=== PATIENT | female | born 1960 | race Caucasian/White ===

== ENCOUNTER 2019-02-01 14:00 | Emergency (ER) | payer MEDICAID ==
[2019-02-01] MEDS: SUMAtriptan 6 MG/0.5 ML SDV SUBCUT ONE (14:26)
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
== END 2019-02-01 15:20 | disposition home or self-care (01) ==
LOC: LL.ED 14:00
DX: G43.909 Migraine, unspecified, not intractable, without status migrainosus (principal); J45.909 Unspecified asthma, uncomplicated; K21.9 Gastro-esophageal reflux disease without esophagitis; E11.9 Type 2 diabetes mellitus without complications; E66.9 Obesity, unspecified; Z68.30 Body mass index [BMI] 30.0-30.9, adult; Z79.899 Other long term (current) drug therapy; Z88.8 Allergy status to other drugs, medicaments and biological substances; Z79.84 Long term (current) use of oral hypoglycemic drugs; Z88.1 Allergy status to other antibiotic agents
CPT/HCPCS: 96372; 99283; J3030

== ENCOUNTER 2019-05-22 19:24 | Emergency (ER) | payer MEDICAID ==
--- NOTE | 2019-05-22 19:59 | EDM.PDOC ---
ED HPI GENERAL MEDICAL PROBLEM - General Chief Complaint: Lower Extremity Injury/Pain Stated Complaint: right knee pain, fall Time Seen by Provider: 05/22/19 19:30 Source of Information: Reports: Patient History Limitations: Reports: No Limitations - History of Present Illness INITIAL COMMENTS - FREE TEXT/NARRATIVE: Patient is a 58-year-old female who was brought in by ambulance secondary to falling on in her house and hitting her right knee she complains of pain on touch and movement x-rays obtained reveal no fracture at this time patient will be sent home on Motrin 200-3 tablets every 6 hours Onset: Today Duration: Minutes:, Constant Location: Reports: Lower Extremity, Right Quality: Reports: Ache, Throbbing Severity: Mild Improves with: Reports: Cold Therapy Worsens with: Reports: None Context: Reports: Exercise Associated Symptoms: Reports: No Other Symptoms 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 Right Knee Pain Score (Numeric/FACES): 8 - Related Data Allergies Allergy/AdvReac Type Severity Reaction Status Date / Time bee venom protein (honey bee) Allergy Anaphylactic Verified 05/22/19 19:30 Shock carbamazepine [From Tegretol] Allergy Hives Verified 05/22/19 19:30 codeine Allergy Confusion Verified 05/22/19 19:30 erythromycin base Allergy Nausea and Verified 05/22/19 19:30 Vomiting Home Meds: Home Meds Albuterol [Proventil HFA] 2 puff INH Q4H PRN 02/01/19 [History] Albuterol/Ipratropium [DuoNeb 3.0-0.5 MG/3 ML] 3 ml INH Q4HR PRN 02/01/19 [ History] Cetirizine HCl [Zyrtec] 10 mg PO DAILY PRN 02/01/19 [History] Cyclobenzaprine [Flexeril] 10 mg PO TID PRN 02/01/19 [History] Gabapentin [Neurontin] 200 mg PO DAILY 02/01/19 [History] Losartan Potassium [Cozaar] 50 mg PO DAILY 02/01/19 [History] Magnesium Glycinate [Mag Glycinate] 100 mg PO BID #60 tablet 02/01/19 [Rx] Nortriptyline HCl [Pamelor] 50 mg PO BEDTIME 02/01/19 [History] Omeprazole 20 mg PO DAILY 02/01/19 [History] SUMAtriptan Succinate [Imitrex] 6 mg SQ ASDIRECTED PRN #1 vial 02/01/19 [Rx] Vitamin D3/Vitamin K2 (Mk4) [K2 Plus D3 Tablet] 1 each PO DAILY #30 tablet 02/01 [Rx] busPIRone [Buspar] 5 mg PO BID PRN 02/01/19 [History] glipiZIDE [Glipizide ER] 5 mg PO DAILY 02/01/19 [History] Past Medical History HEENT History: Reports: Impaired Vision Respiratory History: Reports: Asthma Gastrointestinal History: Reports: GERD Neurological History: Reports: Headaches, Chronic, Migraines, Neuropathy, Peripheral Psychiatric History: Reports: Depression Endocrine/Metabolic History: Reports: Diabetes, Type II, Obesity/BMI 30+ Review of Systems - Review of Systems Review Of Systems: See Below Constitutional: Reports: No Symptoms Eyes: Reports: No Symptoms Ears: Reports: No Symptoms Nose: Reports: No Symptoms Mouth/Throat: Reports: No Symptoms Respiratory: Reports: No Symptoms Cardiovascular: Reports: No Symptoms GI/Abdominal: Reports: No Symptoms Genitourinary: Reports: No Symptoms Musculoskeletal: Reports: Joint Pain (Right knee) Skin: Reports: No Symptoms Neurological: Reports: No Symptoms Psychiatric: Reports: No Symptoms ED EXAM, GENERAL - Physical Exam Exam: See Below Exam Limited By: No Limitations General Appearance: Alert, WD/WN, No Apparent Distress Ears: Normal External Exam, Normal Canal, Hearing Grossly Normal, Normal TMs Ear Exam: Bilateral Ear: Auricle Normal, Canal Normal, TM normal Nose: Normal Inspection, Normal Mucosa, No Blood Throat/Mouth: Normal Inspection, Normal Lips, Normal Teeth, Normal Gums, Normal Oropharynx, Normal Voice, No Airway Compromise Head: Atraumatic, Normocephalic Neck: Normal Inspection, Supple, Non-Tender, Full Range of Motion Respiratory/Chest: No Respiratory Distress, Lungs Clear, Normal Breath Sounds, No Accessory Muscle Use, Chest Non-Tender Cardiovascular: Normal Peripheral Pulses, Regular Rate, Rhythm, No Edema, No Gallop, No JVD, No Murmur, No Rub GI/Abdominal: Normal Bowel Sounds, Soft, Non-Tender, No Organomegaly, No Distention, No Abnormal Bruit, No Mass (Female) Exam: Deferred Rectal (Female) Exam: Deferred Back Exam: Decreased Range of Motion Extremities: Limited Range of Motion Neurological: Alert, Oriented, CN II-XII Intact, Normal Cognition, Normal Gait, Normal Reflexes, No Motor/Sensory Deficits Psychiatric: Normal Affect, Normal Mood Skin Exam: Warm, Dry, Intact, Normal Color, No Rash Lymphatic: No Adenopathy Course - Vital Signs Last Recorded V/S: Last Vital Signs Temp 97.7 F 05/22/19 19:24 Pulse 108 H 05/22/19 19:24 Resp 20 05/22/19 19:24 BP 111/58 L 05/22/19 19:24 Pulse Ox 99 05/22/19 19:24 - Orders/Labs/Meds Orders: Active Orders 24 hr Category Date Time Status Knee 3V Rt [CR] Stat Exams 05/22/19 19:28 Ordered Departure - Departure Time of Disposition: 19:59 Disposition: Home, Self-Care 01 Condition: Fair Clinical Impression: Contusion of right knee Qualifiers: Encounter type: initial encounter Qualified Code(s): S80.01XA - Contusion of right knee, initial encounter - Discharge Information *PRESCRIPTION DRUG MONITORING PROGRAM REVIEWED*: No *COPY OF PRESCRIPTION DRUG MONITORING REPORT IN PATIENT DAMARIS: No Care Plan Goals: Patient will be sent home she is to ice it for the next 2 days and take Motrin 200-300 mg a 202 tablets to 3 tablets every 6 hours for pain - My Orders Last 24 Hours: My Active Orders 05/22/19 19:28 Knee 3V Rt [CR] Stat - Assessment/Plan Last 24 Hours: My Active Orders 05/22/19 19:28 Knee 3V Rt [CR] Stat
== END 2019-05-22 20:10 | disposition home or self-care (01) ==
LOC: LL.ED 19:24
DX: S80.01XA Contusion of right knee, initial encounter (principal); J45.909 Unspecified asthma, uncomplicated; K21.9 Gastro-esophageal reflux disease without esophagitis; F32.9 Major depressive disorder, single episode, unspecified; E11.9 Type 2 diabetes mellitus without complications; Z91.030 Bee allergy status; Z88.5 Allergy status to narcotic agent; Z88.1 Allergy status to other antibiotic agents; Z88.8 Allergy status to other drugs, medicaments and biological substances; Z79.899 Other long term (current) drug therapy; W18.30XA Fall on same level, unspecified, initial encounter; W22.8XXA Striking against or struck by other objects, initial encounter; Y92.009 Unspecified place in unspecified non-institutional (private) residence as the place of occurrence of the external cause
CPT/HCPCS: 73562-RT; 99284-25

== ENCOUNTER 2019-10-29 16:42 | Emergency (ER) | payer MEDICAID ==
[2019-10-29] MEDS ORDERED: diphenhydrAMINE 50 MG/ML SDV IVPUSH ONE (16:49)
[2019-10-29] MEDS ORDERED: Ketorolac 30 MG/ML SDV IVPUSH ONE (16:49)
[2019-10-29] MEDS ORDERED: Sodium Chloride 0.9% 1,000 ML IV ONE (16:50)
[2019-10-29] MEDS ORDERED: Ondansetron 4 MG/2 ML SDV IVPUSH ONE (16:50)
[2019-10-29] MEDS ORDERED: Prochlorperazine 10 MG in Sodium Chloride 0.9% 100 ML IV ONE (16:53)
--- NOTE | 2019-10-29 16:57 | EDM.PDOC ---
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) Other Treatments [employer]: imitrex at 1330 headached Pain Score (Numeric/FACES): 8 - Related Data Allergies Allergy/AdvReac Type Severity Reaction Status Date / Time bee venom protein (honey bee) Allergy Anaphylactic Verified 05/22/19 19:30 Shock carbamazepine [From Tegretol] Allergy Hives Verified 05/22/19 19:30 codeine Allergy Confusion Verified 05/22/19 19:30 erythromycin base Allergy Nausea and Verified 05/22/19 19:30 Vomiting ketorolac [From Toradol] Allergy Hives Verified 10/29/19 16:52 Home Meds: Home Meds Albuterol [Proventil HFA] 2 puff INH Q4H PRN 02/01/19 [History] Albuterol/Ipratropium [DuoNeb 3.0-0.5 MG/3 ML] 3 ml INH Q4HR PRN 02/01/19 [ History] Cetirizine HCl [Zyrtec] 10 mg PO DAILY PRN 02/01/19 [History] Cyclobenzaprine [Flexeril] 10 mg PO TID PRN 02/01/19 [History] Gabapentin [Neurontin] 200 mg PO DAILY 02/01/19 [History] Losartan Potassium [Cozaar] 50 mg PO DAILY 02/01/19 [History] Magnesium Glycinate [Mag Glycinate] 100 mg PO BID #60 tablet 02/01/19 [Rx] Nortriptyline HCl [Pamelor] 50 mg PO BEDTIME 02/01/19 [History] Omeprazole 20 mg PO DAILY 02/01/19 [History] SUMAtriptan Succinate [Imitrex] 6 mg SQ ASDIRECTED PRN #1 vial 02/01/19 [Rx] Vitamin D3/Vitamin K2 (Mk4) [K2 Plus D3 Tablet] 1 each PO DAILY #30 tablet 02/01 [Rx] busPIRone [Buspar] 5 mg PO BID PRN 02/01/19 [History] glipiZIDE [Glipizide ER] 5 mg PO DAILY 02/01/19 [History] Past Medical History HEENT History: Reports: Impaired Vision Respiratory History: Reports: Asthma Gastrointestinal History: Reports: GERD Neurological History: Reports: Headaches, Chronic, Migraines, Neuropathy, Peripheral Psychiatric History: Reports: Depression Endocrine/Metabolic History: Reports: Diabetes, Type II, Obesity/BMI 30+ ED ROS GENERAL - Review of Systems Review Of Systems: See Below Neurological: Reports: Headache - Physical Exam Exam: See Below Exam Limited By: No Limitations General Appearance: Mild Distress Eye Exam: Bilateral Eye: EOMI, PERRL Ears: Normal TMs Nose: Normal Inspection Throat/Mouth: Normal Oropharynx Head Exam: Atraumatic Neck: Supple Neuro Exam (Abbreviated): Alert, Oriented, No Motor/Sensory Deficits Course - Vital Signs Last Recorded V/S: Last Vital Signs Temp 97.1 F 10/29/19 16:44 Pulse 78 10/29/19 16:44 Resp 20 10/29/19 16:44 BP 147/95 H 10/29/19 16:44 Pulse Ox 93 L 10/29/19 16:44 - Orders/Labs/Meds Orders: Active Orders 24 hr Category Date Time Status Prochlorperazine [Compazine] 10 mg Med 10/29/19 16:53 Ordered Sodium Chloride 0.9% [Normal Saline] 100 ml IV ONETIME Meds: Medications Discontinued Medications Generic Name Dose Route Start Last Admin Trade Name Angela PRN Reason Stop Dose Admin Diphenhydramine HCl 50 mg 10/29/19 16:49 Benadryl IVPUSH 10/29/19 16:50 ONETIME ONE Sodium Chloride 1,000 mls @ 1,000 mls/hr 10/29/19 16:50 Normal Saline IV 10/29/19 17:49 .BOLUS ONE Ketorolac Tromethamine 30 mg 10/29/19 16:49 Toradol IVPUSH 10/29/19 16:50 ONETIME ONE Ondansetron HCl 4 mg 10/29/19 16:50 Zofran IVPUSH 10/29/19 16:51 ONETIME ONE - Re-Assessments/Exams Free Text/Narrative Re-Assessment/Exam: 10/29/19 16:55 Pt given Zofran 4 mg, Benadryl 50 mg, and Compazine 10 mg in ER Departure - Departure Time of Disposition: 17:00 Disposition: Home, Self-Care 01 Clinical Impression: Migraine - Discharge Information *PRESCRIPTION DRUG MONITORING PROGRAM REVIEWED*: Not Applicable *COPY OF PRESCRIPTION DRUG MONITORING REPORT IN PATIENT DAMARIS: Not Applicable Instructions: Migraine Headache, [id number], Recurrent Migraine Headache, [id number] Additional Instructions: Follow up in clinic Sepsis Event Note - Evaluation Sepsis Screening Result: No Definite Risk - Focused Exam Vital Signs: Vital Signs Temp Pulse Resp BP Pulse Ox 10/29/19 16:44 97.1 F 78 20 147/95 H 93 L Date Exam was Performed: 10/29/19 Time Exam was Performed: 16:54 - My Orders Last 24 Hours: My Active Orders 10/29/19 16:53 Prochlorperazine [Compazine] 10 mg Sodium Chloride 0.9% [Normal Saline] 100 ml IV ONETIME - Assessment/Plan Last 24 Hours: My Active Orders 10/29/19 16:53 Prochlorperazine [Compazine] 10 mg Sodium Chloride 0.9% [Normal Saline] 100 ml IV ONETIME
== END 2019-10-29 17:45 | disposition home or self-care (01) ==
LOC: LL.ED 16:42
DX: G43.909 Migraine, unspecified, not intractable, without status migrainosus (principal); J45.909 Unspecified asthma, uncomplicated; F32.9 Major depressive disorder, single episode, unspecified; E66.9 Obesity, unspecified; E11.40 Type 2 diabetes mellitus with diabetic neuropathy, unspecified; Z91.030 Bee allergy status; Z88.5 Allergy status to narcotic agent; Z88.8 Allergy status to other drugs, medicaments and biological substances; Z79.899 Other long term (current) drug therapy; Z79.84 Long term (current) use of oral hypoglycemic drugs
CPT/HCPCS: 96365; 96375; 99283; J0780; J1200; J2405; J7050

== ENCOUNTER 2020-04-14 20:54 | Emergency (ER) | payer MEDICAID, OTHER ==
--- NOTE | 2020-04-14 21:00 | EDM.PDOC ---
ED HPI GENERAL MEDICAL PROBLEM - General Chief Complaint: Laceration Stated Complaint: fall Time Seen by Provider: 04/14/20 20:55 Source of Information: Reports: Patient, EMS, Old Records ([facility] EMR. No paper hospital chart available.). Denies: EMS Notes Reviewed (Not available at time of dictation) History Limitations: Reports: No Limitations - History of Present Illness INITIAL COMMENTS - FREE TEXT/NARRATIVE: The patient was brought to the emergency room via ambulance with pharmaceutical service representative accompaniment with patient placed in complete spine immobilization, including spinal board and in the cervical region. The patient was getting out of her car and walking up to her front steps at home at about 2020 hrs. this evening when she stepped in a hole right in front of her front steps falling forwards and hitting her head and face on the front cement steps. Per history from the pharmaceutical service representative she lost about 200 mL of blood on the scene with bleeding controlled prior to arrival to our facility. The patient denies any loss of consciousness, headaches, visual changes, change in mental status, headaches, emesis, back pain, paresthesias, neurological deficits, or other complaints or injuries. She did initially complain of some mild bilateral knee pain secondary to some minor knee abrasions with no history of knee pain at arrival, including joint instabil ity, etc. No recent history of abdominal pain, heartburn, nausea, diarrhea, melena, gross hematochezia, or any food intolerance, including fatty foods, etc.. The patient also denies any recent fever, cough, wheezing, dyspnea, etc.. Patient complains of 5/10 head pain, neck pain, and facial/nose pain secondary to the above injury. Onset: Today, Sudden Onset Date: 04/14/20 Onset Time: 20:20 Duration: Constant Location: Reports: Head, Face, Neck. Denies: Chest, Abdomen, Back, Pelvis, Upper Extremity, Left, Upper Extremity, Right, Lower Extremity, Left, Lower Extremity, Right, Radiates to, Other Quality: Reports: Same as Previous Episode, Throbbing (Everything was fine) Severity: Moderate Improves with: Reports: None Worsens with: Reports: None Context: Reports: Trauma (As above). 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: Reports: Cervical Collar, Dressing(s), Spinal Immobilization Face/Facial Pain Score (Numeric/FACES): 5 - Related Data Allergies Allergy/AdvReac Type Severity Reaction Status Date / Time bee venom protein (honey bee) Allergy Anaphylactic Verified 05/22/19 19:30 Shock carbamazepine [From Tegretol] Allergy Hives Verified 05/22/19 19:30 codeine Allergy Confusion Verified 05/22/19 19:30 erythromycin base Allergy Nausea and Verified 05/22/19 19:30 Vomiting ketorolac [From Toradol] Allergy Hives Verified 10/29/19 16:52 watermelon Allergy Vomiting Verified 04/14/20 22:05 Home Meds: Home Meds Albuterol/Ipratropium [DuoNeb 3.0-0.5 MG/3 ML] 3 ml INH Q4HR PRN 02/01/19 [History] Cetirizine HCl [Zyrtec] 10 mg PO DAILY PRN 02/01/19 [History] Cyclobenzaprine [Flexeril] 10 mg PO TID PRN 02/01/19 [History] Gabapentin [Neurontin] 200 mg PO DAILY 02/01/19 [History] Losartan Potassium [Cozaar] 50 mg PO DAILY 02/01/19 [History] Magnesium Glycinate [Mag Glycinate] 100 mg PO BID #60 tablet 02/01/19 [Rx] Nortriptyline HCl [Pamelor] 50 mg PO BEDTIME 02/01/19 [History] Omeprazole 20 mg PO DAILY 02/01/19 [History] Vitamin D3/Vitamin K2 (Mk4) [K2 Plus D3 Tablet] 1 each PO DAILY #30 tablet 02/01/19 [Rx] busPIRone [Buspar] 5 mg PO ASDIRECTED PRN 02/01/19 [History] glipiZIDE [Glipizide ER] 5 mg PO DAILY 02/01/19 [History] SUMAtriptan succinate [Imitrex] 50 mg PO BID PRN 10/29/19 [History] Past Medical History HEENT History: Reports: Impaired Vision, Other (See Below) Other HEENT History: The patient wears glasses. 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 Full term without complications during pregnancies or deliveries Neurological History: Reports: Headaches, Chronic, Migraines, Neuropathy, Diabetic, Neuropathy, Peripheral, Other (See Below) Other Neuro History: Recurrent falls. Psychiatric History: Reports: Anxiety, Depression Endocrine/Metabolic History: Reports: Diabetes, Type II, Hypomagnesemia, Obesity/BMI 30+ Hematologic History: Reports: Other (See Below) Other Hematologic History: Thrombocytopenia. 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 - Past Imaging History Past Imaging History: Reports: Mammogram (Last mammogram on 06/19/2018.) Social & Family History - Tobacco Use Smoking Status *Q: Never Smoker Tobacco Use Within Last Twelve Months: No Used Tobacco, but Quit: No Smoking Cessation Information Provided To Patient: No Second Hand Smoke Exposure: No Second Hand Smoke Education Provided: No - Caffeine Use Caffeine Use: Reports: Soda - Living Situation & Occupation Living situation: Reports: (1979, 2 children), with Family () ED ROS GENERAL - Review of Systems Review Of Systems: Comprehensive ROS is negative, except as noted in HPI. ED EXAM, SKIN/RASH Exam: See Below Exam Limited By: No Limitations General Appearance: Alert, WD/WN, No Apparent Distress, Anxious (Mild to moderate) Eye Exam: Bilateral Eye: EOMI, Normal Fundi, Normal Inspection (No nystagmus. The patient is wearing glasses), PERRL Ears: Normal External Exam, Normal Canal, Hearing Grossly Normal, Normal TMs Nose: Nasal Tenderness (As below), Nasal Deformity (Mild proximal nasal bridge depression with a 2.5 cm laceration in this area and mild localized tenderness by palpation), Nasal Swelling (Minimal at laceration site), Other (No epistaxis or evidence of septal hematoma). No: Nasal Drainage Throat/Mouth: Normal Inspection, Normal Lips, Normal Teeth, Normal Gums, Normal Oropharynx, Normal Voice, No Airway Compromise Head: Normocephalic, Other (5.5 cm in length laceration over the mid proximal forehead region with superior 8 cm abrasion and mild swelling but no crepitation, deformity, foreign body, or sign of fracture.). No: Facial Swelling, Facial Tenderness, Sinus Tenderness Neck: Normal Inspection, Supple, Non-Tender, Full Range of Motion, Other (After neck immobilizer removed). No: Lymphadenopathy (L), Lymphadenopathy (R), Thyromegaly Respiratory/Chest: No Respiratory Distress, Lungs Clear, Normal Breath Sounds, No Accessory Muscle Use, Chest Non-Tender. No: Pleural Rub, Retractions Cardiovascular: Normal Peripheral Pulses, Regular Rate, Rhythm, No Gallop, No JVD, No Murmur, No Rub. No: No Edema (Dependent edema as below), Gallop/S3, Gallop/S4, Friction Rub Peripheral Pulses: 1+: Dorsalis Pedis (L) (Secondary to lymphedema), Dorsalis Pedis (R) (Secondary to lymphedema), 2+: Radial (L), Radial (R) GI/Abdominal: Normal Bowel Sounds, Soft, Non-Tender, No Organomegaly, No Distention, No Abnormal Bruit, No Mass, Pelvis Stable, Other (Obese). No: Guarding (Female) Exam: Deferred Rectal (Female) Exam: Deferred Back Exam: Normal Inspection, Full Range of Motion. No: CVA Tenderness (L), CVA Tenderness (R), Muscle Spasm Extremities: Normal Range of Motion, Non-Tender (Minimal at abrasion sites of the knees bilaterally), Normal Capillary Refill, Pedal Edema (Stable by history moderate lymphedema of the lower extremities bilaterally), Other (3-4 cm in diameter regular superficial abrasions over her patella regions bilaterally). No: Joint Swelling, Arm Pain Neurological: Alert, Oriented, CN II-XII Intact, Normal Cognition, Normal Gait, Normal Reflexes (Negative Babinski's), No Motor/Sensory Deficits Psychiatric: Anxious (Moderate), Depressed Mood (Mild) Skin: Wound/Incision (As above). No: Diaphoretic Location, Skin: Head, Face, Lower Extremity, Right, Lower Extremity, Left Characteristics: Other (As above) Associated features: Tenderness (As above) Lymphatic: No Adenopathy ED SKIN PROCEDURES - Laceration/Wound Repair Middle Forehead Appearance: Subcutaneous, Clean Distal NVT: Neuro & Vascular Intact, No Tendon Injury Anesthetic Type: Local Local Anesthesia - Lidocaine (Xylocaine): 1% Plain Local Anesthetic Volume: 5cc Skin Prep: Providone-Iodine (Betadine) Saline Irrigation (cc's): 0 Exploration/Debridement/Repair: Wound Explored, In a Bloodless Field, Explored to Base, No Foreign Material Found, Wound Margins Revised, Multiple Flaps Aligned Closed with: Sutures Lac/Wound length In cm: 5.5 Suture Size: 4-0 # of Sutures: 9 Suture Type: Nylon, Interrupted, Simple Drain Placement: No Sterile Dressing Applied: Nurse Tetanus Status Addressed: Yes Complications: No Proximal Dorsal Nose Appearance: Subcutaneous, Clean Distal NVT: Neuro & Vascular Intact, No Tendon Injury Anesthetic Type: Local Local Anesthesia - Lidocaine (Xylocaine): 1% Plain Local Anesthetic Volume: 2cc Skin Prep: Providone-Iodine (Betadine) Saline Irrigation (cc's): 5 Exploration/Debridement/Repair: Wound Explored, In a Bloodless Field, Explored to Base, No Foreign Material Found, Wound Margins Revised, Multiple Flaps Aligned Closed with: Sutures Lac/Wound length In cm: 2.5 Suture Size: 4-0 # of Sutures: 5 Suture Type: Nylon, Interrupted, Simple Drain Placement: No Sterile Dressing Applied: Nurse Tetanus Status Addressed: Yes Complications: No Course - Vital Signs Last Recorded V/S: Last Vital Signs Temp 37.1 C 04/14/20 20:55 Pulse 114 H 04/14/20 22:08 Resp 20 04/14/20 22:08 BP 140/46 L 04/14/20 22:08 Pulse Ox 96 04/14/20 22:08 Vital Signs - 24 hr 04/14/20 04/14/20 04/14/20 20:55 21:30 21:56 Temperature [ 37.1 C Oral] Pulse, 122 H 113 H 114 H Peripheral [ Right Pulse Oximetry] Respiratory 20 20 20 Rate Blood Pressure 145/86 H 127/75 124/54 L [Right Lower Arm] O2 Sat by Pulse 98 97 97 Oximetry 04/14/20 22:08 Temperature [ Oral] Pulse, 114 H Peripheral [ Right Pulse Oximetry] Respiratory 20 Rate Blood Pressure 140/46 L [Right Lower Arm] O2 Sat by Pulse 96 Oximetry - Orders/Labs/Meds Orders: Active Orders 24 hr Category Date Time Status Cervical Spine wo Cont [CT] Stat Exams 04/14/20 21:04 Taken Head wo Cont [CT] Stat Exams 04/14/20 21:01 Taken Max Facial Sinus wo Cont [CT] Stat Exams 04/14/20 21:01 Taken Peripheral IV Insertion Adult [OM.PC] Routine Oth 04/14/20 21:00 Ordered Labs: Laboratory Tests 04/14/20 04/14/20 04/14/20 Range/Units 21:36 21:36 21:36 WBC 7.4 (4.0-10.2) K/uL RBC 3.94 (3.77-5.09) M/uL Hgb 12.8 (11.7-15.5) g/dL Hct 40.3 (34.0-46.0) % MCV 102.3 H (84.0-98.0) fL MCH 32.5 (28.2-33.3) pg MCHC 31.8 (31.7-36.0) g/dL RDW 16.4 H (11.2-14.1) % Plt Count 104 L (150-350) K/uL Neut % (Auto) 65.3 (45.0-80.0) % Lymph % (Auto) 21.1 (10.0-50.0) % Falls % (Auto) 11.7 (2.0-14.0) % Eos % (Auto) 1.4 (0.0-5.0) % Baso % (Auto) 0.5 (0.0-2.0) % Neut # (Auto) 4.81 (1.40-7.00) K/uL Lymph # (Auto) 1.55 (0.50-3.50) K/uL Falls # (Auto) 0.86 (0.00-1.00) K/uL Eos # (Auto) 0.10 (0.00-0.50) K/uL Baso # (Auto) 0.04 (0.00-0.20) K/uL PT 10.5 (9.5-12.0) SEC INR 1.0 APTT 23.6 L (24.5-32.8) SEC Sodium 137 (136-145) mmol/L Potassium 3.4 L (3.5-5.1) mmol/L Chloride 102 (98-107) mmol/L Carbon Dioxide 28.2 (21.0-32.0) mmol/L BUN 10 (7-18) mg/dL Creatinine 0.90 (0.51-1.17) mg/dL Est Cr Clr Drug Dosing 58.12 mL/min Estimated GFR (MDRD) > 60 mL/min Glucose 301 H (74-106) mg/dL Calcium 8.9 (8.5-10.1) mg/dL Total Bilirubin 1.9 H (0.2-1.0) mg/dL Direct Bilirubin (0.0-0.2) mg/dL Indirect Bilirubin mg/dL AST 23 (15-37) U/L ALT 21 (12-78) U/L Alkaline Phosphatase 114 (46-116) IU/L Total Protein 6.6 (6.4-8.2) g/dL Albumin 2.6 L (3.4-5.0) g/dL 04/14/20 Range/Units 21:50 WBC (4.0-10.2) K/uL RBC (3.77-5.09) M/uL Hgb (11.7-15.5) g/dL Hct (34.0-46.0) % MCV (84.0-98.0) fL MCH (28.2-33.3) pg MCHC (31.7-36.0) g/dL RDW (11.2-14.1) % Plt Count (150-350) K/uL Neut % (Auto) (45.0-80.0) % Lymph % (Auto) (10.0-50.0) % Falls % (Auto) (2.0-14.0) % Eos % (Auto) (0.0-5.0) % Baso % (Auto) (0.0-2.0) % Neut # (Auto) (1.40-7.00) K/uL Lymph # (Auto) (0.50-3.50) K/uL Falls # (Auto) (0.00-1.00) K/uL Eos # (Auto) (0.00-0.50) K/uL Baso # (Auto) (0.00-0.20) K/uL PT (9.5-12.0) SEC INR APTT (24.5-32.8) SEC Sodium (136-145) mmol/L Potassium (3.5-5.1) mmol/L Chloride (98-107) mmol/L Carbon Dioxide (21.0-32.0) mmol/L BUN (7-18) mg/dL Creatinine (0.51-1.17) mg/dL Est Cr Clr Drug Dosing mL/min Estimated GFR (MDRD) mL/min Glucose (74-106) mg/dL Calcium (8.5-10.1) mg/dL Total Bilirubin 1.9 H (0.2-1.0) mg/dL Direct Bilirubin 0.5 H (0.0-0.2) mg/dL Indirect Bilirubin 1.4 mg/dL AST (15-37) U/L ALT (12-78) U/L Alkaline Phosphatase (46-116) IU/L Total Protein (6.4-8.2) g/dL Albumin (3.4-5.0) g/dL Meds: Medications Discontinued Medications Generic Name Dose Route Start Last Admin Trade Name Freq PRN Reason Stop Dose Admin Diphtheria/Tetanus/Acell Pertussis 0.5 ml 04/14/20 21:02 04/14/20 21:36 Adacel IM 04/14/20 21:03 0.5 ml .ONCE ONE Administration Lactated Ringer's 1,000 mls @ 999 mls/hr 04/14/20 21:00 04/14/20 21:36 Ringers, Lactated IV 04/14/20 22:00 999 mls/hr .BOLUS ONE Administration Lidocaine HCl 5 ml 04/14/20 21:01 04/14/20 21:39 Xylocaine-Mpf 1% INJECT 04/14/20 21:02 5 ml ONETIME ONE Administration Lidocaine HCl 5 ml 04/14/20 21:02 04/14/20 21:39 Xylocaine-Mpf 1% INJECT 04/14/20 21:03 5 ml ONETIME ONE Administration Neomycin/Polymyxin/Bacitracin 1 each 04/14/20 21:01 04/14/20 21:39 Triple Antibiotic Oint TOP 04/14/20 21:02 1 each ONETIME ONE Administration Sodium Chloride 10 ml 04/14/20 21:01 Saline Flush FLUSH ASDIRECTED PRN Keep Vein Open - Radiology Interpretation Free Text/Narrative:: CT scans of the head, maxillofacial region, and negative for acute injury other than soft tissue injuries as above. Preliminary verbal reports were not received from the radiology department at [facility] despite our previous request. Departure - Departure Time of Disposition: 23:20 Disposition: Home, Self-Care 01 Condition: Good Clinical Impression: Laceration, Abrasion, Multiple contusions, Morbid obesity, Diabetes mellitus type 2 in obese, Mixed anxiety depressive disorder, Thrombocytopenia, Gilbert's disease, Hypokalemia GERD (gastroesophageal reflux disease) Qualifiers: Esophagitis presence: without esophagitis Qualified Code(s): K21.9 - Gastro- esophageal reflux disease without esophagitis Hypertension Qualifiers: Hypertension type: essential hypertension Qualified Code(s): I10 - Essential (primary) hypertension Hyperlipidemia Qualifiers: Hyperlipidemia type: unspecified Qualified Code(s): E78.5 - Hyperlipidemia, unspecified Osteoarthritis Qualifiers: Osteoarthritis location: multiple joints Osteoarthritis type: primary Qualified Code(s): M89.49 - Other hypertrophic osteoarthropathy, multiple sites - Discharge Information *PRESCRIPTION DRUG MONITORING PROGRAM REVIEWED*: Not Applicable *COPY OF PRESCRIPTION DRUG MONITORING REPORT IN PATIENT DAMARIS: Not Applicable (Medicines are done other medicines all the medicines some Adaptic Neosporin can okay itself is not bleedingCan I check off on her medicines) Referrals: Kayla Uribe NP [Primary Care Provider] - Forms: ED Department Discharge Additional Instructions: 1. Followup with your regular provider in as directed for reevaluation suture removal, CBC, and basic metabolic panel. Bring these discharge instructions with you to that visit. 2. Tylenol 650 mg by mouth every 4 hours when necessary as directed. 3. Antibacterial soap wash/soak with subsequent antibacterial dressing such as Neosporin, etc. as directed 2 times per day until the wound or laceration site completely heals. Keep the area clean and dry with activity restrictions as discussed. Never use hydrogen peroxide for wound care. 4. BenGay or equivalent, heating pad, and/or ice packs as directed. 5. Head precautions as directed-see form. 6. Immediately after this visit verify that your cellular telephone's voicemail has been activated and is empty. Also verify that your home telephone's answering machine is operating properly and has space to receive messages. Note that it is sometimes necessary for us to be able to contact you at a later date to discuss your medical care. 7. Please remember that we are ALWAYS here for you and want to answer any questions you may have. Feel free to call the hospital any time and we call you back DEJA. 8. High potassium diet and additional to previous heart healthy ADA diet. Sepsis Event Note (ED) - Focused Exam Vital Signs: Vital Signs Temp Pulse Resp BP Pulse Ox 04/14/20 22:08 114 H 20 140/46 L 96 04/14/20 21:56 114 H 20 124/54 L 97 04/14/20 21:30 113 H 20 127/75 97 04/14/20 20:55 37.1 C 122 H 20 145/86 H 98 - Problem List & Annotations (1) Multiple contusions SNOMED Code(s): 747847835 Code(s): T07.XXXA - UNSPECIFIED MULTIPLE INJURIES, INITIAL ENCOUNTER Status: Acute Priority: High Onset Date: 04/14/20 Annotation/Comment:: Multiple contusions, including mainly in the head, neck and nose regions. Cervical muscle sprain with negative CT scans as above. The spinal board was removed shortly after patient's arrival to this facility with patient kept in neck immobilization and hard cervical collar until results of the above CT scans were obtained. Secondary to estimated 200 mL blood loss at the scene the patient was bolused with 1 L IV lactated Ringer's solution. Physical and neurological exams were stable during emergency room care. Head precautions given. Otherwise symptomatic relief as per discharge instructions. (2) Laceration SNOMED Code(s): 282008485 Code(s): QXC6182 - Status: Chronic Priority: High Onset Date: 04/14/20 Annotation/Comment:: Lacerations of the head and nose with excellent results with laceration repair as above. TDAP was given with patient not knowing when she had her last tetanus booster. Wound care extensively discussed. (3) Abrasion SNOMED Code(s): 426742983 Code(s): T14.8XXA - OTHER INJURY OF UNSPECIFIED BODY REGION, INITIAL ENCOUNTER Status: Acute Priority: High Onset Date: 04/14/20 Annotation/Comment:: Multiple abrasions including the forehead and knees bilaterally. Wound care discussed. (4) Hyperlipidemia SNOMED Code(s): 74644510 Code(s): E78.5 - HYPERLIPIDEMIA, UNSPECIFIED Status: Chronic Priority: Medium Annotation/Comment:: Currently under therapy. Weight loss in moderation advisable. Qualifiers: Hyperlipidemia type: unspecified Qualified Code(s): E78.5 - Hyperlipidemia, unspecified (5) Hypertension SNOMED Code(s): 06327151 Code(s): I10 - ESSENTIAL (PRIMARY) HYPERTENSION Status: Chronic Priority: High Annotation/Comment:: Somewhat elevated in the emergency room. Continue to observe closely by her regular providers. Qualifiers: Hypertension type: essential hypertension Qualified Code(s): I10 - Essential (primary) hypertension (6) Mixed anxiety depressive disorder SNOMED Code(s): 848569112 Code(s): F41.8 - OTHER SPECIFIED ANXIETY DISORDERS Status: Chronic Prio rity: Medium Annotation/Comment:: Moderate control based on today's exam. No medication changes for now. Continue to observe closely by her regular provider. (7) Osteoarthritis SNOMED Code(s): 900963776 Code(s): M19.90 - UNSPECIFIED OSTEOARTHRITIS, UNSPECIFIED SITE Status: Chronic Priority: Medium Annotation/Comment:: Stable by history with otherwise no other injuries or complaints. Qualifiers: Osteoarthritis location: multiple joints Osteoarthritis type: primary Qualified Code(s): M89.49 - Other hypertrophic osteoarthropathy, multiple sites (8) Asthma SNOMED Code(s): 421506460 Code(s): J45.909 - UNSPECIFIED ASTHMA, UNCOMPLICATED Status: Chronic Priority: Medium Annotation/Comment:: Stable by history with no recent history of fever, bronchitic type symptoms, etc. Qualifiers: Asthma severity: mild Asthma persistence: intermittent Asthma complication type: uncomplicated Qualified Code(s): J45.20 - Mild intermittent asthma, uncomplicated (9) Diabetes mellitus type 2 in obese SNOMED Code(s): 16568450 Code(s): E11.69 - TYPE 2 DIABETES MELLITUS WITH OTHER SPECIFIED COMPLICATION; E66.9 - OBESITY, UNSPECIFIED Status: Chronic Priority: Medium Annotation/Comment:: Under somewhat poor control recently by her history. Elevated random glucose level today as above. Continue to observe closely by he r regular provider. (10) GERD (gastroesophageal reflux disease) SNOMED Code(s): 788722140 Code(s): K21.9 - GASTRO-ESOPHAGEAL REFLUX DISEASE WITHOUT ESOPHAGITIS Status: Chronic Priority: Medium Annotation/Comment:: Stable by history Qualifiers: Esophagitis presence: without esophagitis Qualified Code(s): K21.9 - Gastro-esophageal reflux disease without esophagitis (11) Gilbert's disease SNOMED Code(s): 50071407 Code(s): E80.4 - GILBERT SYNDROME Status: Chronic Priority: Medium Onset Date: ~04/14/20 Annotation/Comment:: Benign disease. Observe for now. Stable for medical records. (12) Hypokalemia SNOMED Code(s): 55143940 Code(s): E87.6 - HYPOKALEMIA Status: Acute Priority: Medium Onset Date: 04/14/20 Annotation/Comment:: Lactated Ringer's IV bolus given as above. Observe for now. High potassium diet. Close follow-up by regular provider. (13) Thrombocytopenia SNOMED Code(s): 205645309 Code(s): D69.6 - THROMBOCYTOPENIA, UNSPECIFIED Status: Chronic Priority: Medium Annotation/Comment:: Currently followed by hemeoncology at [facility] with repeat bone marrow needle aspiration biopsy apparently scheduled for next week. - Problem List Review Problem List Initiated/Reviewed/Updated: Yes - My Orders Last 24 Hours: My Active Orders 04/14/20 21:00 Peripheral IV Insertion Adult [OM.PC] Routine 04/14/20 21:01 Head wo Cont [CT] Stat Max Facial Sinus wo Cont [CT] Stat 04/14/20 21:04 Cervical Spine wo Cont [CT] Stat - Assessment/Plan Last 24 Hours: My Active Orders 04/14/20 21:00 Peripheral IV Insertion Adult [OM.PC] Routine 04/14/20 21:01 Head wo Cont [CT] Stat Max Facial Sinus wo Cont [CT] Stat 04/14/20 21:04 Cervical Spine wo Cont [CT] Stat Assessment:: As above Plan: As above. Extensive precautions were given to the patient and , who are in agreement with the treatment plan. See Patient Instructions for further treatment and plan.
[2020-04-14] MEDS ORDERED: Sodium Chloride 0.9% 10 ML Syringe FLUSH PRN (21:01)
[2020-04-14] MEDS: Diphtheria,Pertussis(Acell),Tetanus Vaccine 0.5 ML SDV IM ONE (21:36)
[2020-04-14] MEDS: Lactated Ringers 1,000 ML IV ONE (21:36)
[2020-04-14] MEDS: Bacitracin/Neomycin/Polymyxin B Oint 0.9 GM U/D Packet TOP ONE (21:39)
[2020-04-14 22:08] LABS: PTT,PARTIAL THROMBOPLSTIN TIME 23.6 SEC (24.5-32.8)
[2020-04-14 22:10] LABS: CHLORIDE,CL 102 mmol/L (98-107); SODIUM,NA 137 mmol/L (136-145)
== END 2020-04-14 23:20 | disposition home or self-care (01) ==
LOC: LL.ED 20:54
DX: S01.81XA Laceration without foreign body of other part of head, initial encounter (principal); S01.21XA Laceration without foreign body of nose, initial encounter; S80.212A Abrasion, left knee, initial encounter; S80.211A Abrasion, right knee, initial encounter; K21.9 Gastro-esophageal reflux disease without esophagitis; I10 Essential (primary) hypertension; E78.5 Hyperlipidemia, unspecified; M89.49 Other hypertrophic osteoarthropathy, multiple sites; E66.01 Morbid (severe) obesity due to excess calories; E11.9 Type 2 diabetes mellitus without complications; E80.4 Gilbert syndrome; E87.6 Hypokalemia; J45.909 Unspecified asthma, uncomplicated; F41.9 Anxiety disorder, unspecified; F32.9 Major depressive disorder, single episode, unspecified; Z91.030 Bee allergy status; Z88.5 Allergy status to narcotic agent; Z88.1 Allergy status to other antibiotic agents; Z88.6 Allergy status to analgesic agent; Z91.018 Allergy to other foods; Z23 Encounter for immunization; W10.9XXA Fall (on) (from) unspecified stairs and steps, initial encounter; Y92.009 Unspecified place in unspecified non-institutional (private) residence as the place of occurrence of the external cause
CPT/HCPCS: 12015; 36415; 70450; 70486; 72125; 80053; 82248; 85025; 85610; 85730; 90471; 90715; 96360; 99284; J2001; J7120; 12004; 82247

== ENCOUNTER 2020-04-24 18:26 | Inpatient (IN) | payer MEDICAID, OTHER ==
--- NOTE | 2020-04-24 18:45 | EDM.PDOC ---
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 Note CHF as below. (4) Asthma SNOMED Code(s): 658141038 Code(s): J45.909 - UNSPECIFIED ASTHMA, UNCOMPLICATED Status: Chronic Priority: Medium Annotation/Comment:: Secondary to current COVID-19 pandemic high-dose inhalers will be used rather than inhalers. Qualifiers: Asthma severity: mild Asthma persistence: intermittent Asthma complication type: uncomplicated Qualified Code(s): J45.20 - Mild intermittent asthma, uncomplicated (5) Diabetes mellitus type 2 in obese SNOMED Code(s): 75975425 Code(s): E11.69 - TYPE 2 DIABETES MELLITUS WITH OTHER SPECIFIED COMPLICATION; E66.9 - OBESITY, UNSPECIFIED Status: Chronic Priority: Medium Annotation/Comment:: Severe hyperglycemia with IV human regular insulin given in the emergency room. Initiate insulin infusion per standard protocol after admission. (6) GERD (gastroesophageal reflux disease) SNOMED Code(s): 788790360 Code(s): K21.9 - GASTRO-ESOPHAGEAL REFLUX DISEASE WITHOUT ESOPHAGITIS Status: Chronic Priority: Medium Annotation/Comment:: Stable by history. Initiate IV Pepcid on admission as GI prophylaxis. Qualifiers: Esophagitis presence: without esophagitis Qualified Code(s): K21.9 - Gastro-esophageal reflux disease without esophagitis (7) Gilbert's disease SNOMED Code(s): 24769232 Code(s): E80.4 - GILBERT SYNDROME Status: Chronic Priority: Medium Onset Date: ~04/14/20 Annotation/Comment:: Benign disease. Observe for now. Stable per medical records. (8) Hyperlipidemia SNOMED Code(s): 49245927 Code(s): E78.5 - HYPERLIPIDEMIA, UNSPECIFIED Status: Chronic Priority: Medium Annotation/Comment:: Currently under therapy. Weight loss in moderation advisable. Lipid panel in the a.m. Qualifiers: Hyperlipidemia type: unspecified Qualified Code(s): E78.5 - Hyperlipidemia, unspecified (9) Hypertension SNOMED Code(s): 06947646 Code(s): I10 - ESSENTIAL (PRIMARY) HYPERTENSION Status: Chronic Priority: High Annotation/Comment:: Somewhat elevated in the emergency room. Continue to observe closely by her regular providers. Qualifiers: Hypertension type: essential hypertension Qualified Code(s): I10 - Essential (primary) hypertension (10) Thrombocytopenia SNOMED Code(s): 710960797 Code(s): D69.6 - THROMBOCYTOPENIA, UNSPECIFIED Status: Chronic Priority: Medium Annotation/Comment:: Currently followed by hemeoncology at [facility] in [place] with repeat bone marrow needle aspiration biopsy apparently scheduled for next week. (11) Anemia SNOMED Code(s): 170234758 Code(s): D64.9 - ANEMIA, UNSPECIFIED Status: Acute Priority: Medium Annotation/Comment:: No evidence of acute GI bleed. IV Pepcid given as above. Qualifiers: Anemia type: unspecified type Qualified Code(s): D64.9 - Anemia, unspecified (12) Lactic acid increased SNOMED Code(s): 54723469 Code(s): E87.2 - ACIDOSIS Status: Acute Priority: High Onset Date: 04/24/20 Annotation/Comment:: IV lactated Ringer's and IV Rocephin initiated in the emergency room. Follow standard sepsis protocol, however no clinical evidence of sepsis. (13) Hypoalbuminemia SNOMED Code(s): 635137210 Code(s): E88.09 - OTH DISORDERS OF PLASMA-PROTEIN METABOLISM, NEC Status: Acute Priority: Medium Current Visit: Yes Onset Date: 04/24/20 Annotation/Comment:: Observe for now. Note lymphedema. - Problem List Review Problem List Initiated/Reviewed/Updated: Yes - My Orders Last 24 Hours: My Active Orders 04/24/20 Breakfast Nothing Per Oral Diet [DIET] 04/24/20 18:45 CORONAVIRUS COVID-19 PCR PHL Urgent 04/24/20 18:47 Cardiac Monitoring [RC] CONTINUOUS Communication Order [RC] ROUTINE Oxygen Therapy, ED [RC] CONTINUOUS Peripheral IV Care [RC] . DIRECTED Pulse Oximetry [RC] CONTINUOUS Up With Assistance [RC] ASDIRECTED Chest 1V Frontal [CR] Stat Chest 1V Frontal [CR] Stat CULTURE SPUTUM + SMEAR [RM] Urgent CULTURE URINE [RM] Routine INFLUENZA A+B AG SCREEN [RM] Stat STREP SCRN A RAPID W CULT CONF [RM] Stat UA W/MICROSCOPIC [URIN] Stat Sodium Chloride 0.9% [Saline Flush] 10 ml FLUSH ASDIRECTED PRN Blood Culture x2 Reflex Set [OM.PC] Stat Isolation [COMM] Routine Obtain Past Medical Record [OM.PC] Stat Peripheral IV Insertion Adult [OM.PC] Stat Resuscitation Status Routine 04/24/20 18:51 Cardiac Monitoring [RC] . DIRECTED 04/24/20 19:32 CULTURE BLOOD [BC] Stat - Assessment/Plan Admission H&P: Please use this note as an admission H&P Last 24 Hours: My Active Orders 04/24/20 Breakfast Nothing Per Oral Diet [DIET] 04/24/20 18:45 CORONAVIRUS COVID-19 PCR PHL Urgent 04/24/20 18:47 Cardiac Monitoring [RC] CONTINUOUS Communication Order [RC] ROUTINE Oxygen Therapy, ED [RC] CONTINUOUS Peripheral IV Care [RC] . DIRECTED Pulse Oximetry [RC] CONTINUOUS Up With Assistance [RC] ASDIRECTED Chest 1V Frontal [CR] Stat Chest 1V Frontal [CR] Stat CULTURE SPUTUM + SMEAR [RM] Urgent CULTURE URINE [RM] Routine INFLUENZA A+B AG SCREEN [RM] Stat STREP SCRN A RAPID W CULT CONF [RM] Stat UA W/MICROSCOPIC [URIN] Stat Sodium Chloride 0.9% [Saline Flush] 10 ml FLUSH ASDIRECTED PRN Blood Culture x2 Reflex Set [OM.PC] Stat Isolation [COMM] Routine Obtain Past Medical Record [OM.PC] Stat Peripheral IV Insertion Adult [OM.PC] Stat Resuscitation Status Routine 04/24/20 18:51 Cardiac Monitoring [RC] . DIRECTED 04/24/20 19:32 CULTURE BLOOD [BC] Stat Assessment:: As above Plan: As above. Extensive precautions were given to the patient, who is in agreement with the treatment plan. The patient will require about 3-4 days of inpatient/acute care secondary to multiple health problems as above.
[2020-04-24] MEDS ORDERED: Acetaminophen 325 MG Tab PO ONE (18:47)
[2020-04-24] MEDS ORDERED: Lactated Ringers 1,000 ML IV ONE (19:17)
[2020-04-24] MEDS ORDERED: Metoprolol Tartrate 5 MG/5 ML SDV IVPUSH ONE (19:42)
[2020-04-24 20:05] LABS: CHLORIDE,CL 100 mmol/L (98-107); SODIUM,NA 135 mmol/L (136-145)
[2020-04-24] MEDS ORDERED: cefTRIAXone 1 GM in Sodium Chloride 0.9% 100 ML IV ONE (20:13)
[2020-04-24] MEDS ORDERED: Insulin Regular, Human 100 Units/ML 3 ML Vial IV ONE (20:14)
[2020-04-24] MEDS ORDERED: Acetaminophen 325 MG Tab PO PRN (23:17)
[2020-04-24] MEDS ORDERED: Metoprolol Tartrate 25 MG Tab PO ONE (23:17)
[2020-04-24] MEDS ORDERED: Albuterol HFA 8.5 GM Inhaler INH PRN (23:57)
[2020-04-25] MEDS ORDERED: Insulin Lispro Protamine/Lispro 75-25 100 Units/ML 10 ML Vial SUBCUT ONE ×2 (00:01→09:42)
[2020-04-25] MEDS: Sodium Chloride 0.9% 10 ML Syringe FLUSH SCH ×3 (00:07→12:10)
[2020-04-25] MEDS: Levofloxacin/Dextrose 5%-Water 500 MG in Premix Bag 1 BAG IV SCH ×2 (00:11→23:47)
[2020-04-25] MEDS ORDERED: Magnesium Oxide 400 MG Tab PO SCH (00:15)
[2020-04-25] MEDS: Albuterol/Ipratropium 4 GM Inhalation Spray INH SCH ×7 (00:44→23:55)
[2020-04-25] MEDS: Famotidine 20 MG/2 ML SDV IVPUSH SCH ×3 (01:07→23:48)
[2020-04-25] MEDS ORDERED: Fluconazole 100 MG Tab PO ONE (01:40)
[2020-04-25] MEDS: Furosemide 40 MG/4 ML VIAL IVPUSH SCH ×4 (01:47→17:09)
[2020-04-25] MEDS ORDERED: Albuterol/Ipratropium 3.0-0.5 MG/3 ML Neb Soln NEB SCH (02:00)
[2020-04-25] MEDS ORDERED: Fluconazole 100 MG Tab ONE (03:51)
[2020-04-25 08:01] LABS: CHLORIDE,CL 101 mmol/L (98-107); SODIUM,NA 138 mmol/L (136-145)
[2020-04-25] MEDS: cefTRIAXone 1 GM in Sodium Chloride 0.9% 100 ML IV SCH ×2 (08:19→22:27)
[2020-04-25] MEDS: metFORMIN 500 MG Tab PO SCH ×2 (08:26→17:08)
[2020-04-25] MEDS: Losartan 50 MG Tab PO SCH (08:27)
[2020-04-25] MEDS: Magnesium Oxide 400 MG Tab PO SCH ×2 (08:27→17:08)
[2020-04-25] MEDS: Potassium Chloride 20 MEQ Tab.ER PO SCH ×3 (08:28→17:08)
[2020-04-25] MEDS: Gabapentin 100 MG Cap PO SCH (08:28)
[2020-04-25] MEDS: Dextromethorphan/guaiFENesin 600-30 MG Tab.ER PO SCH ×2 (08:28→17:08)
[2020-04-25] MEDS: Insulin Lispro 100 Units/ML 3 ML Vial SUBCUT SCH ×4 (08:34→22:08)
--- NOTE | 2020-04-25 10:06 | PCM.PN ---
- General Info Date of Service: 04/25/20 Admission Dx/Problem (Free Text): 1. Pneumonia 2. Asthma exacerbation 3. Lactic acid elevation 4. CHF 5. Tachycardia Functional Status: Reports: Pain Controlled, Tolerating Diet, Ambulating, Urinating (However [place] catheter is in place), New Symptoms (New right frontal headache), Incentive Spirometry Pain Score: 5 (Right frontal headache) - Review of Systems General: Reports: Weakness (Stable chronic generalized). Denies: Fever, Fatigue, Malaise, Chills, Night Sweats, Appetite (Adequate) HEENT: Reports: Glasses, Headaches. Denies: Dysphasia, Ear Pain, Eye Pain, Post Nasal Drip, Sinus Congestion, Sore Throat, Rhinitis, Visual Changes Pulmonary: Reports: No Symptoms. Denies: Shortness of Breath, Pleuritic Chest Pain, Cough, Sputum, Hemoptysis, Wheezing Cardiovascular: Reports: Edema (Stable dependent lymphedema). Denies: Chest Pain, Palpitations, Dyspnea on Exertion, Orthopnea, PND, Lightheadedness Gastrointestinal: Reports: Constipation (Chronic with no bowel movement since admission). Denies: Decreased Appetite, Diarrhea, Difficulty Swallowing, Flatus, Hematochezia, Melena, Nausea, Vomiting Genitourinary: Reports: Incontinence, Retention, Other ([place] catheter placed). Denies: Dysuria, Frequency, Burning, Pain, Urgency, Hematuria, Flank Pain Musculoskeletal: Reports: No Symptoms. Denies: Neck Pain, Shoulder Pain, Arm Pain, Back Pain, Leg Pain Skin: Reports: Bruising (Stable mild facial swelling from distant head injury), Other (Persistent eschar in previous forehead and nose lacerations). Denies: Diaphoresis Neurological: Reports: Headache, Numbness (Stable chronic), Paresthesia (As above), Tingling (As above), Difficulty Walking (Secondary to obesity), Weakness (Stable chronic generalized). Denies: Confusion, Dizziness Psychiatric: Reports: No Symptoms. Denies: Confusion, Depression, Anxiety, Agitation, Cravings, Hallucinations - Patient Data Vitals - Most Recent: Last Vital Signs Temp 36.6 C 04/25/20 08:00 Pulse 101 H 04/25/20 08:00 Resp 14 04/25/20 08:00 BP 111/63 04/25/20 08:27 Pulse Ox 94 L 04/25/20 08:00 Vital Signs - 24 hr 04/24/20 04/24/20 04/24/20 18:33 18:48 20:10 Temperature [ 37.0 C Temporal] Pulse, 127 H Peripheral Pulse, 127 H 126 H Peripheral [ Pulse Oximetry] Respiratory 22 H 21 H Rate Blood Pressure 128/48 L Blood Pressure 135/60 139/80 [Left Lower Arm ] Blood Pressure [Right Lower Arm] O2 Sat by Pulse 96 96 Oximetry 04/24/20 04/25/20 04/25/20 23:20 00:07 04:00 Temperature [ 37.2 C 36.6 C Temporal] Pulse, 119 H Peripheral Pulse, 119 H 99 Peripheral [ Pulse Oximetry] Respiratory 20 20 Rate Blood Pressure 123/70 Blood Pressure 123/70 [Left Lower Arm ] Blood Pressure 108/54 L [Right Lower Arm] O2 Sat by Pulse 96 96 Oximetry 04/25/20 04/25/20 08:00 08:27 Temperature [ 36.6 C Temporal] Pulse, Peripheral Pulse, 101 H Peripheral [ Pulse Oximetry] Respiratory 14 Rate Blood Pressure 111/63 Blood Pressure [Left Lower Arm ] Blood Pressure 111/63 [Right Lower Arm] O2 Sat by Pulse 94 L Oximetry Weight - Most Recent: 125.69 kg I&O - Last 24 Hours: Intake & Output 04/24/20 04/25/20 04/25/20 22:59 06:59 14:59 Intake Total 1250 Output Total 1200 800 Balance 50 -800 Imaging Impressions - Last 24 Hours: campus monitor shows current mild sinus tachycardia in the 100s with moderate tachycardia in the 120s prior to admission. No ectopy or other significant arrhythmia Chest x-ray, portable, report from 04/24/2020 indicates bilateral multiple consolidations including right upper lobe and left lower lobe consistent with pneumonia. Lab Results Last 24 Hours: Laboratory Results - last 24 hr 04/24/20 04/24/20 04/24/20 Range/Units 19:32 19:32 19:32 WBC 7.9 (4.0-10.2) K/uL RBC 3.43 L (3.77-5.09) M/uL Hgb 11.3 L D (11.7-15.5) g/dL Hct 35.5 (34.0-46.0) % MCV 103.5 H (84.0-98.0) fL MCH 32.9 (28.2-33.3) pg MCHC 31.8 (31.7-36.0) g/dL RDW 17.2 H (11.2-14.1) % Plt Count 90 L (150-350) K/uL Neut % (Auto) 72.5 (45.0-80.0) % Lymph % (Auto) 15.2 (10.0-50.0) % Sharkey % (Auto) 10.7 (2.0-14.0) % Eos % (Auto) 1.1 (0.0-5.0) % Baso % (Auto) 0.5 (0.0-2.0) % Neut # (Auto) 5.70 (1.40-7.00) K/uL Lymph # (Auto) 1.20 (0.50-3.50) K/uL Sharkey # (Auto) 0.84 (0.00-1.00) K/uL Eos # (Auto) 0.09 (0.00-0.50) K/uL Baso # (Auto) 0.04 (0.00-0.20) K/uL PT 11.0 (9.5-12.0) SEC INR 1.1 APTT 26.0 (24.5-32.8) SEC Sodium 135 L (136-145) mmol/L Potassium 3.8 (3.5-5.1) mmol/L Chloride 100 (98-107) mmol/L Carbon Dioxide 25.5 (21.0-32.0) mmol/L BUN 9 (7-18) mg/dL Creatinine 0.88 (0.51-1.17) mg/dL Est Cr Clr Drug Dosing TNP Estimated GFR (MDRD) > 60 mL/min Glucose 518 H* (74-106) mg/dL POC Glucose (65-110) mg/dl Lactic Acid (0.4-2.0) mmol/L Calcium 9.0 (8.5-10.1) mg/dL Magnesium 1.6 L (1.8-2.4) mg/dL Total Bilirubin 2.3 H (0.2-1.0) mg/dL AST 27 (15-37) U/L ALT 20 (12-78) U/L Alkaline Phosphatase 122 H (46-116) IU/L Creatine Kinase 32 (26-308) U/L Creatine Kinase Index 2.2 (0.0-2.5) % CK-MB (CK-2) 0.70 (0.00-3.60) ng/mL Troponin I 0.000 (0.000-0.056) ng/mL NT-Pro-B Natriuret Pep 1308 H (0-125) pg/mL Total Protein 6.4 (6.4-8.2) g/dL Albumin 2.4 L (3.4-5.0) g/dL TSH, Ultra Sensitive 0.979 (0.358-3.740) mIU/mL Specimen Type Urine Color Urine Appearance Urine pH (5.0-9.0) Ur Specific Lead (1.005-1.030) Urine Protein (NEGATIVE) mg/dL Urine Glucose (UA) (NEGATIVE) mg/dL Urine Ketones (NEGATIVE) mg/dL Urine Occult Blood (NEGATIVE) Urine Nitrite (NEGATIVE) Urine Bilirubin (NEGATIVE) Urine Urobilinogen (0.2-1.0) E.U./dL Ur Leukocyte Esterase (NEGATIVE) Urine RBC /HPF Urine WBC /HPF Ur Epithelial Cells /LPF Urine Bacteria (NONE TO FEW) /HPF Urine Yeast (NEGATIVE) /HPF Urinalysis Comment Ketones 04/24/20 04/24/20 04/24/20 Range/Units 19:32 19:37 23:15 WBC (4.0-10.2) K/uL RBC (3.77-5.09) M/uL Hgb (11.7-15.5) g/dL Hct (34.0-46.0) % MCV (84.0-98.0) fL MCH (28.2-33.3) pg MCHC (31.7-36.0) g/dL RDW (11.2-14.1) % Plt Count (150-350) K/uL Neut % (Auto) (45.0-80.0) % Lymph % (Auto) (10.0-50.0) % Sharkey % (Auto) (2.0-14.0) % Eos % (Auto) (0.0-5.0) % Baso % (Auto) (0.0-2.0) % Neut # (Auto) (1.40-7.00) K/uL Lymph # (Auto) (0.50-3.50) K/uL Sharkey # (Auto) (0.00-1.00) K/uL Eos # (Auto) (0.00-0.50) K/uL Baso # (Auto) (0.00-0.20) K/uL PT (9.5-12.0) SEC INR APTT (24.5-32.8) SEC Sodium (136-145) mmol/L Potassium (3.5-5.1) mmol/L Chloride (98-107) mmol/L Carbon Dioxide (21.0-32.0) mmol/L BUN (7-18) mg/dL Creatinine (0.51-1.17) mg/dL Est Cr Clr Drug Dosing Estimated GFR (MDRD) mL/min Glucose (74-106) mg/dL POC Glucose (65-110) mg/dl Lactic Acid 2.2 H (0.4-2.0) mmol/L Calcium (8.5-10.1) mg/dL Magnesium (1.8-2.4) mg/dL Total Bilirubin (0.2-1.0) mg/dL AST (15-37) U/L ALT (12-78) U/L Alkaline Phosphatase (46-116) IU/L Creatine Kinase (26-308) U/L Creatine Kinase Index (0.0-2.5) % CK-MB (CK-2) (0.00-3.60) ng/mL Troponin I (0.000-0.056) ng/mL NT-Pro-B Natriuret Pep (0-125) pg/mL Total Protein (6.4-8.2) g/dL Albumin (3.4-5.0) g/dL TSH, Ultra Sensitive (0.358-3.740) mIU/mL Specimen Type Urincc Urine Color Yellow Urine Appearance Cloudy Urine pH 5.0 (5.0-9.0) Ur Specific Lead 1.020 (1.005-1.030) Urine Protein Negative (NEGATIVE) mg/dL Urine Glucose (UA) >=1000 H (NEGATIVE) mg/dL Urine Ketones Negative (NEGATIVE) mg/dL Urine Occult Blood Moderate H (NEGATIVE) Urine Nitrite Negative (NEGATIVE) Urine Bilirubin Negative (NEGATIVE) Urine Urobilinogen 0.2 (0.2-1.0) E.U./dL Ur Leukocyte Esterase Small H (NEGATIVE) Urine RBC 5-10 H /HPF Urine WBC 10-20 H /HPF Ur Epithelial Cells Many H /LPF Urine Bacteria Many H (NONE TO FEW) /HPF Urine Yeast Few H (NEGATIVE) /HPF Urinalysis Comment Ketones Negative 04/24/20 04/24/20 04/25/20 Range/Units 23:15 23:15 00:05 WBC (4.0-10.2) K/uL RBC (3.77-5.09) M/uL Hgb (11.7-15.5) g/dL Hct (34.0-46.0) % MCV (84.0-98.0) fL MCH (28.2-33.3) pg MCHC (31.7-36.0) g/dL RDW (11.2-14.1) % Plt Count (150-350) K/uL Neut % (Auto) (45.0-80.0) % Lymph % (Auto) (10.0-50.0) % Sharkey % (Auto) (2.0-14.0) % Eos % (Auto) (0.0-5.0) % Baso % (Auto) (0.0-2.0) % Neut # (Auto) (1.40-7.00) K/uL Lymph # (Auto) (0.50-3.50) K/uL Sharkey # (Auto) (0.00-1.00) K/uL Eos # (Auto) (0.00-0.50) K/uL Baso # (Auto) (0.00-0.20) K/uL PT (9.5-12.0) SEC INR APTT (24.5-32.8) SEC Sodium (136-145) mmol/L Potassium (3.5-5.1) mmol/L Chloride (98-107) mmol/L Carbon Dioxide (21.0-32.0) mmol/L BUN (7-18) mg/dL Creatinine (0.51-1.17) mg/dL Est Cr Clr Drug Dosing Estimated GFR (MDRD) mL/min Glucose 336 H (74-106) mg/dL POC Glucose 343 H* (65-110) mg/dl Lactic Acid 1.7 (0.4-2.0) mmol/L Calcium (8.5-10.1) mg/dL Magnesium (1.8-2.4) mg/dL Total Bilirubin (0.2-1.0) mg/dL AST (15-37) U/L ALT (12-78) U/L Alkaline Phosphatase (46-116) IU/L Creatine Kinase (26-308) U/L Creatine Kinase Index (0.0-2.5) % CK-MB (CK-2) (0.00-3.60) ng/mL Troponin I (0.000-0.056) ng/mL NT-Pro-B Natriuret Pep (0-125) pg/mL Total Protein (6.4-8.2) g/dL Albumin (3.4-5.0) g/dL TSH, Ultra Sensitive (0.358-3.740) mIU/mL Specimen Type Urine Color Urine Appearance Urine pH (5.0-9.0) Ur Specific Lead (1.005-1.030) Urine Protein (NEGATIVE) mg/dL Urine Glucose (UA) (NEGATIVE) mg/dL Urine Ketones (NEGATIVE) mg/dL Urine Occult Blood (NEGATIVE) Urine Nitrite (NEGATIVE) Urine Bilirubin (NEGATIVE) Urine Urobilinogen (0.2-1.0) E.U./dL Ur Leukocyte Esterase (NEGATIVE) Urine RBC /HPF Urine WBC /HPF Ur Epithelial Cells /LPF Urine Bacteria (NONE TO FEW) /HPF Urine Yeast (NEGATIVE) /HPF Urinalysis Comment Ketones 04/25/20 04/25/20 04/25/20 Range/Units 01:39 04:08 07:28 WBC 6.5 (4.0-10.2) K/uL RBC 3.32 L (3.77-5.09) M/uL Hgb 11.1 L (11.7-15.5) g/dL Hct 35.0 (34.0-46.0) % MCV 105.4 H (84.0-98.0) fL MCH 33.4 H (28.2-33.3) pg MCHC 31.7 (31.7-36.0) g/dL RDW 17.4 H (11.2-14.1) % Plt Count 72 L (150-350) K/uL Neut % (Auto) 69.1 (45.0-80.0) % Lymph % (Auto) 18.9 (10.0-50.0) % Sharkey % (Auto) 10.1 (2.0-14.0) % Eos % (Auto) 1.4 (0.0-5.0) % Baso % (Auto) 0.5 (0.0-2.0) % Neut # (Auto) 4.47 (1.40-7.00) K/uL Lymph # (Auto) 1.22 (0.50-3.50) K/uL Sharkey # (Auto) 0.65 (0.00-1.00) K/uL Eos # (Auto) 0.09 (0.00-0.50) K/uL Baso # (Auto) 0.03 (0.00-0.20) K/uL PT (9.5-12.0) SEC INR APTT (24.5-32.8) SEC Sodium (136-145) mmol/L Potassium (3.5-5.1) mmol/L Chloride (98-107) mmol/L Carbon Dioxide (21.0-32.0) mmol/L BUN (7-18) mg/dL Creatinine (0.51-1.17) mg/dL Est Cr Clr Drug Dosing Estimated GFR (MDRD) mL/min Glucose (74-106) mg/dL POC Glucose 383 H* 292 H* (65-110) mg/dl Lactic Acid (0.4-2.0) mmol/L Calcium (8.5-10.1) mg/dL Magnesium (1.8-2.4) mg/dL Total Bilirubin (0.2-1.0) mg/dL AST (15-37) U/L ALT (12-78) U/L Alkaline Phosphatase (46-116) IU/L Creatine Kinase (26-308) U/L Creatine Kinase Index (0.0-2.5) % CK-MB (CK-2) (0.00-3.60) ng/mL Troponin I (0.000-0.056) ng/mL NT-Pro-B Natriuret Pep (0-125) pg/mL Total Protein (6.4-8.2) g/dL Albumin (3.4-5.0) g/dL TSH, Ultra Sensitive (0.358-3.740) mIU/mL Specimen Type Urine Color Urine Appearance Urine pH (5.0-9.0) Ur Specific Lead (1.005-1.030) Urine Protein (NEGATIVE) mg/dL Urine Glucose (UA) (NEGATIVE) mg/dL Urine Ketones (NEGATIVE) mg/dL Urine Occult Blood (NEGATIVE) Urine Nitrite (NEGATIVE) Urine Bilirubin (NEGATIVE) Urine Urobilinogen (0.2-1.0) E.U./dL Ur Leukocyte Esterase (NEGATIVE) Urine RBC /HPF Urine WBC /HPF Ur Epithelial Cells /LPF Urine Bacteria (NONE TO FEW) /HPF Urine Yeast (NEGATIVE) /HPF Urinalysis Comment Ketones 04/25/20 Range/Units 07:28 WBC (4.0-10.2) K/uL RBC (3.77-5.09) M/uL Hgb (11.7-15.5) g/dL Hct (34.0-46.0) % MCV (84.0-98.0) fL MCH (28.2-33.3) pg MCHC (31.7-36.0) g/dL RDW (11.2-14.1) % Plt Count (150-350) K/uL Neut % (Auto) (45.0-80.0) % Lymph % (Auto) (10.0-50.0) % Sharkey % (Auto) (2.0-14.0) % Eos % (Auto) (0.0-5.0) % Baso % (Auto) (0.0-2.0) % Neut # (Auto) (1.40-7.00) K/uL Lymph # (Auto) (0.50-3.50) K/uL Sharkey # (Auto) (0.00-1.00) K/uL Eos # (Auto) (0.00-0.50) K/uL Baso # (Auto) (0.00-0.20) K/uL PT (9.5-12.0) SEC INR APTT (24.5-32.8) SEC Sodium 138 (136-145) mmol/L Potassium 3.6 (3.5-5.1) mmol/L Chloride 101 (98-107) mmol/L Carbon Dioxide 31.4 (21.0-32.0) mmol/L BUN 7 (7-18) mg/dL Creatinine 0.91 (0.51-1.17) mg/dL Est Cr Clr Drug Dosing 57.48 Estimated GFR (MDRD) > 60 mL/min Glucose 269 H (74-106) mg/dL POC Glucose (65-110) mg/dl Lactic Acid (0.4-2.0) mmol/L Calcium 8.9 (8.5-10.1) mg/dL Magnesium (1.8-2.4) mg/dL Total Bilirubin 1.6 H (0.2-1.0) mg/dL AST 27 (15-37) U/L ALT 18 (12-78) U/L Alkaline Phosphatase 110 (46-116) IU/L Creatine Kinase (26-308) U/L Creatine Kinase Index (0.0-2.5) % CK-MB (CK-2) (0.00-3.60) ng/mL Troponin I (0.000-0.056) ng/mL NT-Pro-B Natriuret Pep (0-125) pg/mL Total Protein 6.1 L (6.4-8.2) g/dL Albumin 2.1 L (3.4-5.0) g/dL TSH, Ultra Sensitive (0.358-3.740) mIU/mL Specimen Type Urine Color Urine Appearance Urine pH (5.0-9.0) Ur Specific Lead (1.005-1.030) Urine Protein (NEGATIVE) mg/dL Urine Glucose (UA) (NEGATIVE) mg/dL Urine Ketones (NEGATIVE) mg/dL Urine Occult Blood (NEGATIVE) Urine Nitrite (NEGATIVE) Urine Bilirubin (NEGATIVE) Urine Urobilinogen (0.2-1.0) E.U./dL Ur Leukocyte Esterase (NEGATIVE) Urine RBC /HPF Urine WBC /HPF Ur Epithelial Cells /LPF Urine Bacteria (NONE TO FEW) /HPF Urine Yeast (NEGATIVE) /HPF Urinalysis Comment Ketones Laboratory Tests 04/24/20 04/24/20 04/24/20 Range/Units 19:32 19:32 19:32 WBC 7.9 (4.0-10.2) K/uL RBC 3.43 L (3.77-5.09) M/uL Hgb 11.3 L D (11.7-15.5) g/dL Hct 35.5 (34.0-46.0) % MCV 103.5 H (84.0-98.0) fL MCH 32.9 (28.2-33.3) pg MCHC 31.8 (31.7-36.0) g/dL RDW 17.2 H (11.2-14.1) % Plt Count 90 L (150-350) K/uL Neut % (Auto) 72.5 (45.0-80.0) % Lymph % (Auto) 15.2 (10.0-50.0) % Sharkey % (Auto) 10.7 (2.0-14.0) % Eos % (Auto) 1.1 (0.0-5.0) % Baso % (Auto) 0.5 (0.0-2.0) % Neut # (Auto) 5.70 (1.40-7.00) K/uL Lymph # (Auto) 1.20 (0.50-3.50) K/uL Sharkey # (Auto) 0.84 (0.00-1.00) K/uL Eos # (Auto) 0.09 (0.00-0.50) K/uL Baso # (Auto) 0.04 (0.00-0.20) K/uL PT 11.0 (9.5-12.0) SEC INR 1.1 APTT 26.0 (24.5-32.8) SEC Sodium 135 L (136-145) mmol/L Potassium 3.8 (3.5-5.1) mmol/L Chloride 100 (98-107) mmol/L Carbon Dioxide 25.5 (21.0-32.0) mmol/L BUN 9 (7-18) mg/dL Creatinine 0.88 (0.51-1.17) mg/dL Est Cr Clr Drug Dosing TNP Estimated GFR (MDRD) > 60 mL/min Glucose 518 H* (74-106) mg/dL POC Glucose (65-110) mg/dl Lactic Acid (0.4-2.0) mmol/L Calcium 9.0 (8.5-10.1) mg/dL Magnesium 1.6 L (1.8-2.4) mg/dL Total Bilirubin 2.3 H (0.2-1.0) mg/dL AST 27 (15-37) U/L ALT 20 (12-78) U/L Alkaline Phosphatase 122 H (46-116) IU/L Creatine Kinase 32 (26-308) U/L Creatine Kinase Index 2.2 (0.0-2.5) % CK-MB (CK-2) 0.70 (0.00-3.60) ng/mL Troponin I 0.000 (0.000-0.056) ng/mL NT-Pro-B Natriuret Pep 1308 H (0-125) pg/mL Total Protein 6.4 (6.4-8.2) g/dL Albumin 2.4 L (3.4-5.0) g/dL TSH, Ultra Sensitive 0.979 (0.358-3.740) mIU/mL Specimen Type Urine Color Urine Appearance Urine pH (5.0-9.0) Ur Specific Lead (1.005-1.030) Urine Protein (NEGATIVE) mg/dL Urine Glucose (UA) (NEGATIVE) mg/dL Urine Ketones (NEGATIVE) mg/dL Urine Occult Blood (NEGATIVE) Urine Nitrite (NEGATIVE) Urine Bilirubin (NEGATIVE) Urine Urobilinogen (0.2-1.0) E.U./dL Ur Leukocyte Esterase (NEGATIVE) Urine RBC /HPF Urine WBC /HPF Ur Epithelial Cells /LPF Urine Bacteria (NONE TO FEW) /HPF Urine Yeast (NEGATIVE) /HPF Urinalysis Comment Ketones 04/24/20 04/24/20 04/24/20 Range/Units 19:32 19:37 23:15 WBC (4.0-10.2) K/uL RBC (3.77-5.09) M/uL Hgb (11.7-15.5) g/dL Hct (34.0-46.0) % MCV (84.0-98.0) fL MCH (28.2-33.3) pg MCHC (31.7-36.0) g/dL RDW (11.2-14.1) % Plt Count (150-350) K/uL Neut % (Auto) (45.0-80.0) % Lymph % (Auto) (10.0-50.0) % Sharkey % (Auto) (2.0-14.0) % Eos % (Auto) (0.0-5.0) % Baso % (Auto) (0.0-2.0) % Neut # (Auto) (1.40-7.00) K/uL Lymph # (Auto) (0.50-3.50) K/uL Sharkey # (Auto) (0.00-1.00) K/uL Eos # (Auto) (0.00-0.50) K/uL Baso # (Auto) (0.00-0.20) K/uL PT (9.5-12.0) SEC INR APTT (24.5-32.8) SEC Sodium (136-145) mmol/L Potassium (3.5-5.1) mmol/L Chloride (98-107) mmol/L Carbon Dioxide (21.0-32.0) mmol/L BUN (7-18) mg/dL Creatinine (0.51-1.17) mg/dL Est Cr Clr Drug Dosing Estimated GFR (MDRD) mL/min Glucose (74-106) mg/dL POC Glucose (65-110) mg/dl Lactic Acid 2.2 H (0.4-2.0) mmol/L Calcium (8.5-10.1) mg/dL Magnesium (1.8-2.4) mg/dL Total Bilirubin (0.2-1.0) mg/dL AST (15-37) U/L ALT (12-78) U/L Alkaline Phosphatase (46-116) IU/L Creatine Kinase (26-308) U/L Creatine Kinase Index (0.0-2.5) % CK-MB (CK-2) (0.00-3.60) ng/mL Troponin I (0.000-0.056) ng/mL NT-Pro-B Natriuret Pep (0-125) pg/mL Total Protein (6.4-8.2) g/dL Albumin (3.4-5.0) g/dL TSH, Ultra Sensitive (0.358-3.740) mIU/mL Specimen Type Urincc Urine Color Yellow Urine Appearance Cloudy Urine pH 5.0 (5.0-9.0) Ur Specific Lead 1.020 (1.005-1.030) Urine Protein Negative (NEGATIVE) mg/dL Urine Glucose (UA) >=1000 H (NEGATIVE) mg/dL Urine Ketones Negative (NEGATIVE) mg/dL Urine Occult Blood Moderate H (NEGATIVE) Urine Nitrite Negative (NEGATIVE) Urine Bilirubin Negative (NEGATIVE) Urine Urobilinogen 0.2 (0.2-1.0) E.U./dL Ur Leukocyte Esterase Small H (NEGATIVE) Urine RBC 5-10 H /HPF Urine WBC 10-20 H /HPF Ur Epithelial Cells Many H /LPF Urine Bacteria Many H (NONE TO FEW) /HPF Urine Yeast Few H (NEGATIVE) /HPF Urinalysis Comment Ketones Negative 04/24/20 04/24/20 04/25/20 Range/Units 23:15 23:15 00:05 WBC (4.0-10.2) K/uL RBC (3.77-5.09) M/uL Hgb (11.7-15.5) g/dL Hct (34.0-46.0) % MCV (84.0-98.0) fL MCH (28.2-33.3) pg MCHC (31.7-36.0) g/dL RDW (11.2-14.1) % Plt Count (150-350) K/uL Neut % (Auto) (45.0-80.0) % Lymph % (Auto) (10.0-50.0) % Sharkey % (Auto) (2.0-14.0) % Eos % (Auto) (0.0-5.0) % Baso % (Auto) (0.0-2.0) % Neut # (Auto) (1.40-7.00) K/uL Lymph # (Auto) (0.50-3.50) K/uL Sharkey # (Auto) (0.00-1.00) K/uL Eos # (Auto) (0.00-0.50) K/uL Baso # (Auto) (0.00-0.20) K/uL PT (9.5-12.0) SEC INR APTT (24.5-32.8) SEC Sodium (136-145) mmol/L Potassium (3.5-5.1) mmol/L Chloride (98-107) mmol/L Carbon Dioxide (21.0-32.0) mmol/L BUN (7-18) mg/dL Creatinine (0.51-1.17) mg/dL Est Cr Clr Drug Dosing Estimated GFR (MDRD) mL/min Glucose 336 H (74-106) mg/dL POC Glucose 343 H* (65-110) mg/dl Lactic Acid 1.7 (0.4-2.0) mmol/L Calcium (8.5-10.1) mg/dL Magnesium (1.8-2.4) mg/dL Total Bilirubin (0.2-1.0) mg/dL AST (15-37) U/L ALT (12-78) U/L Alkaline Phosphatase (46-116) IU/L Creatine Kinase (26-308) U/L Creatine Kinase Index (0.0-2.5) % CK-MB (CK-2) (0.00-3.60) ng/mL Troponin I (0.000-0.056) ng/mL NT-Pro-B Natriuret Pep (0-125) pg/mL Total Protein (6.4-8.2) g/dL Albumin (3.4-5.0) g/dL TSH, Ultra Sensitive (0.358-3.740) mIU/mL Specimen Type Urine Color Urine Appearance Urine pH (5.0-9.0) Ur Specific Lead (1.005-1.030) Urine Protein (NEGATIVE) mg/dL Urine Glucose (UA) (NEGATIVE) mg/dL Urine Ketones (NEGATIVE) mg/dL Urine Occult Blood (NEGATIVE) Urine Nitrite (NEGATIVE) Urine Bilirubin (NEGATIVE) Urine Urobilinogen (0.2-1.0) E.U./dL Ur Leukocyte Esterase (NEGATIVE) Urine RBC /HPF Urine WBC /HPF Ur Epithelial Cells /LPF Urine Bacteria (NONE TO FEW) /HPF Urine Yeast (NEGATIVE) /HPF Urinalysis Comment Ketones 04/25/20 04/25/20 04/25/20 Range/Units 01:39 04:08 07:28 WBC 6.5 (4.0-10.2) K/uL RBC 3.32 L (3.77-5.09) M/uL Hgb 11.1 L (11.7-15.5) g/dL Hct 35.0 (34.0-46.0) % MCV 105.4 H (84.0-98.0) fL MCH 33.4 H (28.2-33.3) pg MCHC 31.7 (31.7-36.0) g/dL RDW 17.4 H (11.2-14.1) % Plt Count 72 L (150-350) K/uL Neut % (Auto) 69.1 (45.0-80.0) % Lymph % (Auto) 18.9 (10.0-50.0) % Sharkey % (Auto) 10.1 (2.0-14.0) % Eos % (Auto) 1.4 (0.0-5.0) % Baso % (Auto) 0.5 (0.0-2.0) % Neut # (Auto) 4.47 (1.40-7.00) K/uL Lymph # (Auto) 1.22 (0.50-3.50) K/uL Sharkey # (Auto) 0.65 (0.00-1.00) K/uL Eos # (Auto) 0.09 (0.00-0.50) K/uL Baso # (Auto) 0.03 (0.00-0.20) K/uL PT (9.5-12.0) SEC INR APTT (24.5-32.8) SEC Sodium (136-145) mmol/L Potassium (3.5-5.1) mmol/L Chloride (98-107) mmol/L Carbon Dioxide (21.0-32.0) mmol/L BUN (7-18) mg/dL Creatinine (0.51-1.17) mg/dL Est Cr Clr Drug Dosing Estimated GFR (MDRD) mL/min Glucose (74-106) mg/dL POC Glucose 383 H* 292 H* (65-110) mg/dl Lactic Acid (0.4-2.0) mmol/L Calcium (8.5-10.1) mg/dL Magnesium (1.8-2.4) mg/dL Total Bilirubin (0.2-1.0) mg/dL AST (15-37) U/L ALT (12-78) U/L Alkaline Phosphatase (46-116) IU/L Creatine Kinase (26-308) U/L Creatine Kinase Index (0.0-2.5) % CK-MB (CK-2) (0.00-3.60) ng/mL Troponin I (0.000-0.056) ng/mL NT-Pro-B Natriuret Pep (0-125) pg/mL Total Protein (6.4-8.2) g/dL Albumin (3.4-5.0) g/dL TSH, Ultra Sensitive (0.358-3.740) mIU/mL Specimen Type Urine Color Urine Appearance Urine pH (5.0-9.0) Ur Specific Lead (1.005-1.030) Urine Protein (NEGATIVE) mg/dL Urine Glucose (UA) (NEGATIVE) mg/dL Urine Ketones (NEGATIVE) mg/dL Urine Occult Blood (NEGATIVE) Urine Nitrite (NEGATIVE) Urine Bilirubin (NEGATIVE) Urine Urobilinogen (0.2-1.0) E.U./dL Ur Leukocyte Esterase (NEGATIVE) Urine RBC /HPF Urine WBC /HPF Ur Epithelial Cells /LPF Urine Bacteria (NONE TO FEW) /HPF Urine Yeast (NEGATIVE) /HPF Urinalysis Comment Ketones 04/25/20 Range/Units 07:28 WBC (4.0-10.2) K/uL RBC (3.77-5.09) M/uL Hgb (11.7-15.5) g/dL Hct (34.0-46.0) % MCV (84.0-98.0) fL MCH (28.2-33.3) pg MCHC (31.7-36.0) g/dL RDW (11.2-14.1) % Plt Count (150-350) K/uL Neut % (Auto) (45.0-80.0) % Lymph % (Auto) (10.0-50.0) % Sharkey % (Auto) (2.0-14.0) % Eos % (Auto) (0.0-5.0) % Baso % (Auto) (0.0-2.0) % Neut # (Auto) (1.40-7.00) K/uL Lymph # (Auto) (0.50-3.50) K/uL Sharkey # (Auto) (0.00-1.00) K/uL Eos # (Auto) (0.00-0.50) K/uL Baso # (Auto) (0.00-0.20) K/uL PT (9.5-12.0) SEC INR APTT (24.5-32.8) SEC Sodium 138 (136-145) mmol/L Potassium 3.6 (3.5-5.1) mmol/L Chloride 101 (98-107) mmol/L Carbon Dioxide 31.4 (21.0-32.0) mmol/L BUN 7 (7-18) mg/dL Creatinine 0.91 (0.51-1.17) mg/dL Est Cr Clr Drug Dosing 57.48 Estimated GFR (MDRD) > 60 mL/min Glucose 269 H (74-106) mg/dL POC Glucose (65-110) mg/dl Lactic Acid (0.4-2.0) mmol/L Calcium 8.9 (8.5-10.1) mg/dL Magnesium (1.8-2.4) mg/dL Total Bilirubin 1.6 H (0.2-1.0) mg/dL AST 27 (15-37) U/L ALT 18 (12-78) U/L Alkaline Phosphatase 110 (46-116) IU/L Creatine Kinase (26-308) U/L Creatine Kinase Index (0.0-2.5) % CK-MB (CK-2) (0.00-3.60) ng/mL Troponin I (0.000-0.056) ng/mL NT-Pro-B Natriuret Pep (0-125) pg/mL Total Protein 6.1 L (6.4-8.2) g/dL Albumin 2.1 L (3.4-5.0) g/dL TSH, Ultra Sensitive (0.358-3.740) mIU/mL Specimen Type Urine Color Urine Appearance Urine pH (5.0-9.0) Ur Specific Lead (1.005-1.030) Urine Protein (NEGATIVE) mg/dL Urine Glucose (UA) (NEGATIVE) mg/dL Urine Ketones (NEGATIVE) mg/dL Urine Occult Blood (NEGATIVE) Urine Nitrite (NEGATIVE) Urine Bilirubin (NEGATIVE) Urine Urobilinogen (0.2-1.0) E.U./dL Ur Leukocyte Esterase (NEGATIVE) Urine RBC /HPF Urine WBC /HPF Ur Epithelial Cells /LPF Urine Bacteria (NONE TO FEW) /HPF Urine Yeast (NEGATIVE) /HPF Urinalysis Comment Ketones Laboratory Tests 04/24/20 04/24/20 04/24/20 Range/Units 19:32 19:32 19:32 WBC 7.9 (4.0-10.2) K/uL RBC 3.43 L (3.77-5.09) M/uL Hgb 11.3 L D (11.7-15.5) g/dL Hct 35.5 (34.0-46.0) % MCV 103.5 H (84.0-98.0) fL MCH 32.9 (28.2-33.3) pg MCHC 31.8 (31.7-36.0) g/dL RDW 17.2 H (11.2-14.1) % Plt Count 90 L (150-350) K/uL Neut % (Auto) 72.5 (45.0-80.0) % Lymph % (Auto) 15.2 (10.0-50.0) % Sharkey % (Auto) 10.7 (2.0-14.0) % Eos % (Auto) 1.1 (0.0-5.0) % Baso % (Auto) 0.5 (0.0-2.0) % Neut # (Auto) 5.70 (1.40-7.00) K/uL Lymph # (Auto) 1.20 (0.50-3.50) K/uL Sharkey # (Auto) 0.84 (0.00-1.00) K/uL Eos # (Auto) 0.09 (0.00-0.50) K/uL Baso # (Auto) 0.04 (0.00-0.20) K/uL PT 11.0 (9.5-12.0) SEC INR 1.1 APTT 26.0 (24.5-32.8) SEC Sodium 135 L (136-145) mmol/L Potassium 3.8 (3.5-5.1) mmol/L Chloride 100 (98-107) mmol/L Carbon Dioxide 25.5 (21.0-32.0) mmol/L BUN 9 (7-18) mg/dL Creatinine 0.88 (0.51-1.17) mg/dL Est Cr Clr Drug Dosing TNP Estimated GFR (MDRD) > 60 mL/min Glucose 518 H* (74-106) mg/dL POC Glucose (65-110) mg/dl Hemoglobin A1c (4.3-5.7) % Lactic Acid (0.4-2.0) mmol/L Calcium 9.0 (8.5-10.1) mg/dL Phosphorus (2.6-4.7) mg/dL Magnesium 1.6 L (1.8-2.4) mg/dL Total Bilirubin 2.3 H (0.2-1.0) mg/dL AST 27 (15-37) U/L ALT 20 (12-78) U/L Alkaline Phosphatase 122 H (46-116) IU/L Creatine Kinase 32 (26-308) U/L Creatine Kinase Index 2.2 (0.0-2.5) % CK-MB (CK-2) 0.70 (0.00-3.60) ng/mL Troponin I 0.000 (0.000-0.056) ng/mL NT-Pro-B Natriuret Pep 1308 H (0-125) pg/mL Total Protein 6.4 (6.4-8.2) g/dL Albumin 2.4 L (3.4-5.0) g/dL Triglycerides (30-150) mg/dL Cholesterol (100-200) mg/dL LDL Cholesterol, Calc (0-100) mg/dL HDL Cholesterol (40-60) mg/dL Vitamin B12 (193-986) pg/mL TSH, Ultra Sensitive 0.979 (0.358-3.740) mIU/mL Specimen Type Urine Color Urine Appearance Urine pH (5.0-9.0) Ur Specific Lead (1.005-1.030) Urine Protein (NEGATIVE) mg/dL Urine Glucose (UA) (NEGATIVE) mg/dL Urine Ketones (NEGATIVE) mg/dL Urine Occult Blood (NEGATIVE) Urine Nitrite (NEGATIVE) Urine Bilirubin (NEGATIVE) Urine Urobilinogen (0.2-1.0) E.U./dL Ur Leukocyte Esterase (NEGATIVE) Urine RBC /HPF Urine WBC /HPF Ur Epithelial Cells /LPF Urine Bacteria (NONE TO FEW) /HPF Urine Yeast (NEGATIVE) /HPF Urinalysis Comment Ketones 0904/24/20 04/24/20 Range/Units 19:32 19:37 23:15 WBC (4.0-10.2) K/uL RBC (3.77-5.09) M/uL Hgb (11.7-15.5) g/dL Hct (34.0-46.0) % MCV (84.0-98.0) fL MCH (28.2-33.3) pg MCHC (31.7-36.0) g/dL RDW (11.2-14.1) % Plt Count (150-350) K/uL Neut % (Auto) (45.0-80.0) % Lymph % (Auto) (10.0-50.0) % Sharkey % (Auto) (2.0-14.0) % Eos % (Auto) (0.0-5.0) % Baso % (Auto) (0.0-2.0) % Neut # (Auto) (1.40-7.00) K/uL Lymph # (Auto) (0.50-3.50) K/uL Sharkey # (Auto) (0.00-1.00) K/uL Eos # (Auto) (0.00-0.50) K/uL Baso # (Auto) (0.00-0.20) K/uL PT (9.5-12.0) SEC INR APTT (24.5-32.8) SEC Sodium (136-145) mmol/L Potassium (3.5-5.1) mmol/L Chloride (98-107) mmol/L Carbon Dioxide (21.0-32.0) mmol/L BUN (7-18) mg/dL Creatinine (0.51-1.17) mg/dL Est Cr Clr Drug Dosing Estimated GFR (MDRD) mL/min Glucose (74-106) mg/dL POC Glucose (65-110) mg/dl Hemoglobin A1c (4.3-5.7) % Lactic Acid 2.2 H (0.4-2.0) mmol/L Calcium (8.5-10.1) mg/dL Phosphorus (2.6-4.7) mg/dL Magnesium (1.8-2.4) mg/dL Total Bilirubin (0.2-1.0) mg/dL AST (15-37) U/L ALT (12-78) U/L Alkaline Phosphatase (46-116) IU/L Creatine Kinase (26-308) U/L Creatine Kinase Index (0.0-2.5) % CK-MB (CK-2) (0.00-3.60) ng/mL Troponin I (0.000-0.056) ng/mL NT-Pro-B Natriuret Pep (0-125) pg/mL Total Protein (6.4-8.2) g/dL Albumin (3.4-5.0) g/dL Triglycerides (30-150) mg/dL Cholesterol (100-200) mg/dL LDL Cholesterol, Calc (0-100) mg/dL HDL Cholesterol (40-60) mg/dL Vitamin B12 (193-986) pg/mL TSH, Ultra Sensitive (0.358-3.740) mIU/mL Specimen Type Urincc Urine Color Yellow Urine Appearance Cloudy Urine pH 5.0 (5.0-9.0) Ur Specific Lead 1.020 (1.005-1.030) Urine Protein Negative (NEGATIVE) mg/dL Urine Glucose (UA) >=1000 H (NEGATIVE) mg/dL Urine Ketones Negative (NEGATIVE) mg/dL Urine Occult Blood Moderate H (NEGATIVE) Urine Nitrite Negative (NEGATIVE) Urine Bilirubin Negative (NEGATIVE) Urine Urobilinogen 0.2 (0.2-1.0) E.U./dL Ur Leukocyte Esterase Small H (NEGATIVE) Urine RBC 5-10 H /HPF Urine WBC 10-20 H /HPF Ur Epithelial Cells Many H /LPF Urine Bacteria Many H (NONE TO FEW) /HPF Urine Yeast Few H (NEGATIVE) /HPF Urinalysis Comment Ketones Negative 04/24/20 04/24/20 04/25/20 Range/Units 23:15 23:15 00:05 WBC (4.0-10.2) K/uL RBC (3.77-5.09) M/uL Hgb (11.7-15.5) g/dL Hct (34.0-46.0) % MCV (84.0-98.0) fL MCH (28.2-33.3) pg MCHC (31.7-36.0) g/dL RDW (11.2-14.1) % Plt Count (150-350) K/uL Neut % (Auto) (45.0-80.0) % Lymph % (Auto) (10.0-50.0) % Sharkey % (Auto) (2.0-14.0) % Eos % (Auto) (0.0-5.0) % Baso % (Auto) (0.0-2.0) % Neut # (Auto) (1.40-7.00) K/uL Lymph # (Auto) (0.50-3.50) K/uL Sharkey # (Auto) (0.00-1.00) K/uL Eos # (Auto) (0.00-0.50) K/uL Baso # (Auto) (0.00-0.20) K/uL PT (9.5-12.0) SEC INR APTT (24.5-32.8) SEC Sodium (136-145) mmol/L Potassium (3.5-5.1) mmol/L Chloride (98-107) mmol/L Carbon Dioxide (21.0-32.0) mmol/L BUN (7-18) mg/dL Creatinine (0.51-1.17) mg/dL Est Cr Clr Drug Dosing Estimated GFR (MDRD) mL/min Glucose 336 H (74-106) mg/dL POC Glucose 343 H* (65-110) mg/dl Hemoglobin A1c (4.3-5.7) % Lactic Acid 1.7 (0.4-2.0) mmol/L Calcium (8.5-10.1) mg/dL Phosphorus (2.6-4.7) mg/dL Magnesium (1.8-2.4) mg/dL Total Bilirubin (0.2-1.0) mg/dL AST (15-37) U/L ALT (12-78) U/L Alkaline Phosphatase (46-116) IU/L Creatine Kinase (26-308) U/L Creatine Kinase Index (0.0-2.5) % CK-MB (CK-2) (0.00-3.60) ng/mL Troponin I (0.000-0.056) ng/mL NT-Pro-B Natriuret Pep (0-125) pg/mL Total Protein (6.4-8.2) g/dL Albumin (3.4-5.0) g/dL Triglycerides (30-150) mg/dL Cholesterol (100-200) mg/dL LDL Cholesterol, Calc (0-100) mg/dL HDL Cholesterol (40-60) mg/dL Vitamin B12 (193-986) pg/mL TSH, Ultra Sensitive (0.358-3.740) mIU/mL Specimen Type Urine Color Urine Appearance Urine pH (5.0-9.0) Ur Specific Lead (1.005-1.030) Urine Protein (NEGATIVE) mg/dL Urine Glucose (UA) (NEGATIVE) mg/dL Urine Ketones (NEGATIVE) mg/dL Urine Occult Blood (NEGATIVE) Urine Nitrite (NEGATIVE) Urine Bilirubin (NEGATIVE) Urine Urobilinogen (0.2-1.0) E.U./dL Ur Leukocyte Esterase (NEGATIVE) Urine RBC /HPF Urine WBC /HPF Ur Epithelial Cells /LPF Urine Bacteria (NONE TO FEW) /HPF Urine Yeast (NEGATIVE) /HPF Urinalysis Comment Ketones 04/25/20 04/25/20 04/25/20 Range/Units 01:39 04:08 07:28 WBC 6.5 (4.0-10.2) K/uL RBC 3.32 L (3.77-5.09) M/uL Hgb 11.1 L (11.7-15.5) g/dL Hct 35.0 (34.0-46.0) % MCV 105.4 H (84.0-98.0) fL MCH 33.4 H (28.2-33.3) pg MCHC 31.7 (31.7-36.0) g/dL RDW 17.4 H (11.2-14.1) % Plt Count 72 L (150-350) K/uL Neut % (Auto) 69.1 (45.0-80.0) % Lymph % (Auto) 18.9 (10.0-50.0) % Sharkey % (Auto) 10.1 (2.0-14.0) % Eos % (Auto) 1.4 (0.0-5.0) % Baso % (Auto) 0.5 (0.0-2.0) % Neut # (Auto) 4.47 (1.40-7.00) K/uL Lymph # (Auto) 1.22 (0.50-3.50) K/uL Sharkey # (Auto) 0.65 (0.00-1.00) K/uL Eos # (Auto) 0.09 (0.00-0.50) K/uL Baso # (Auto) 0.03 (0.00-0.20) K/uL PT (9.5-12.0) SEC INR APTT (24.5-32.8) SEC Sodium (136-145) mmol/L Potassium (3.5-5.1) mmol/L Chloride (98-107) mmol/L Carbon Dioxide (21.0-32.0) mmol/L BUN (7-18) mg/dL Creatinine (0.51-1.17) mg/dL Est Cr Clr Drug Dosing Estimated GFR (MDRD) mL/min Glucose (74-106) mg/dL POC Glucose 383 H* 292 H* (65-110) mg/dl Hemoglobin A1c (4.3-5.7) % Lactic Acid (0.4-2.0) mmol/L Calcium (8.5-10.1) mg/dL Phosphorus (2.6-4.7) mg/dL Magnesium (1.8-2.4) mg/dL Total Bilirubin (0.2-1.0) mg/dL AST (15-37) U/L ALT (12-78) U/L Alkaline Phosphatase (46-116) IU/L Creatine Kinase (26-308) U/L Creatine Kinase Index (0.0-2.5) % CK-MB (CK-2) (0.00-3.60) ng/mL Troponin I (0.000-0.056) ng/mL NT-Pro-B Natriuret Pep (0-125) pg/mL Total Protein (6.4-8.2) g/dL Albumin (3.4-5.0) g/dL Triglycerides (30-150) mg/dL Cholesterol (100-200) mg/dL LDL Cholesterol, Calc (0-100) mg/dL HDL Cholesterol (40-60) mg/dL Vitamin B12 (193-986) pg/mL TSH, Ultra Sensitive (0.358-3.740) mIU/mL Specimen Type Urine Color Urine Appearance Urine pH (5.0-9.0) Ur Specific Lead (1.005-1.030) Urine Protein (NEGATIVE) mg/dL Urine Glucose (UA) (NEGATIVE) mg/dL Urine Ketones (NEGATIVE) mg/dL Urine Occult Blood (NEGATIVE) Urine Nitrite (NEGATIVE) Urine Bilirubin (NEGATIVE) Urine Urobilinogen (0.2-1.0) E.U./dL Ur Leukocyte Esterase (NEGATIVE) Urine RBC /HPF Urine WBC /HPF Ur Epithelial Cells /LPF Urine Bacteria (NONE TO FEW) /HPF Urine Yeast (NEGATIVE) /HPF Urinalysis Comment Ketones 04/25/20 04/25/20 04/25/20 Range/Units 07:28 07:28 07:28 WBC (4.0-10.2) K/uL RBC (3.77-5.09) M/uL Hgb (11.7-15.5) g/dL Hct (34.0-46.0) % MCV (84.0-98.0) fL MCH (28.2-33.3) pg MCHC (31.7-36.0) g/dL RDW (11.2-14.1) % Plt Count (150-350) K/uL Neut % (Auto) (45.0-80.0) % Lymph % (Auto) (10.0-50.0) % Sharkey % (Auto) (2.0-14.0) % Eos % (Auto) (0.0-5.0) % Baso % (Auto) (0.0-2.0) % Neut # (Auto) (1.40-7.00) K/uL Lymph # (Auto) (0.50-3.50) K/uL Sharkey # (Auto) (0.00-1.00) K/uL Eos # (Auto) (0.00-0.50) K/uL Baso # (Auto) (0.00-0.20) K/uL PT (9.5-12.0) SEC INR APTT (24.5-32.8) SEC Sodium 138 (136-145) mmol/L Potassium 3.6 (3.5-5.1) mmol/L Chloride 101 (98-107) mmol/L Carbon Dioxide 31.4 (21.0-32.0) mmol/L BUN 7 (7-18) mg/dL Creatinine 0.91 (0.51-1.17) mg/dL Est Cr Clr Drug Dosing 57.48 Estimated GFR (MDRD) > 60 mL/min Glucose 269 H (74-106) mg/dL POC Glucose (65-110) mg/dl Hemoglobin A1c 9.7 H (4.3-5.7) % Lactic Acid (0.4-2.0) mmol/L Calcium 8.9 (8.5-10.1) mg/dL Phosphorus 3.8 (2.6-4.7) mg/dL Magnesium (1.8-2.4) mg/dL Total Bilirubin 1.6 H (0.2-1.0) mg/dL AST 27 (15-37) U/L ALT 18 (12-78) U/L Alkaline Phosphatase 110 (46-116) IU/L Creatine Kinase (26-308) U/L Creatine Kinase Index (0.0-2.5) % CK-MB (CK-2) (0.00-3.60) ng/mL Troponin I (0.000-0.056) ng/mL NT-Pro-B Natriuret Pep (0-125) pg/mL Total Protein 6.1 L (6.4-8.2) g/dL Albumin 2.1 L (3.4-5.0) g/dL Triglycerides 52 (30-150) mg/dL Cholesterol 86 L (100-200) mg/dL LDL Cholesterol, Calc 47 (0-100) mg/dL HDL Cholesterol 29 L (40-60) mg/dL Vitamin B12 752 (193-986) pg/mL TSH, Ultra Sensitive (0.358-3.740) mIU/mL Specimen Type Urine Color Urine Appearance Urine pH (5.0-9.0) Ur Specific Lead (1.005-1.030) Urine Protein (NEGATIVE) mg/dL Urine Glucose (UA) (NEGATIVE) mg/dL Urine Ketones (NEGATIVE) mg/dL Urine Occult Blood (NEGATIVE) Urine Nitrite (NEGATIVE) Urine Bilirubin (NEGATIVE) Urine Urobilinogen (0.2-1.0) E.U./dL Ur Leukocyte Esterase (NEGATIVE) Urine RBC /HPF Urine WBC /HPF Ur Epithelial Cells /LPF Urine Bacteria (NONE TO FEW) /HPF Urine Yeast (NEGATIVE) /HPF Urinalysis Comment Ketones 04/25/20 04/25/20 Range/Units 08:18 12:07 WBC (4.0-10.2) K/uL RBC (3.77-5.09) M/uL Hgb (11.7-15.5) g/dL Hct (34.0-46.0) % MCV (84.0-98.0) fL MCH (28.2-33.3) pg MCHC (31.7-36.0) g/dL RDW (11.2-14.1) % Plt Count (150-350) K/uL Neut % (Auto) (45.0-80.0) % Lymph % (Auto) (10.0-50.0) % Sharkey % (Auto) (2.0-14.0) % Eos % (Auto) (0.0-5.0) % Baso % (Auto) (0.0-2.0) % Neut # (Auto) (1.40-7.00) K/uL Lymph # (Auto) (0.50-3.50) K/uL Sharkey # (Auto) (0.00-1.00) K/uL Eos # (Auto) (0.00-0.50) K/uL Baso # (Auto) (0.00-0.20) K/uL PT (9.5-12.0) SEC INR APTT (24.5-32.8) SEC Sodium (136-145) mmol/L Potassium (3.5-5.1) mmol/L Chloride (98-107) mmol/L Carbon Dioxide (21.0-32.0) mmol/L BUN (7-18) mg/dL Creatinine (0.51-1.17) mg/dL Est Cr Clr Drug Dosing Estimated GFR (MDRD) mL/min Glucose (74-106) mg/dL POC Glucose 235 H 225 H (65-110) mg/dl Hemoglobin A1c (4.3-5.7) % Lactic Acid (0.4-2.0) mmol/L Calcium (8.5-10.1) mg/dL Phosphorus (2.6-4.7) mg/dL Magnesium (1.8-2.4) mg/dL Total Bilirubin (0.2-1.0) mg/dL AST (15-37) U/L ALT (12-78) U/L Alkaline Phosphatase (46-116) IU/L Creatine Kinase (26-308) U/L Creatine Kinase Index (0.0-2.5) % CK-MB (CK-2) (0.00-3.60) ng/mL Troponin I (0.000-0.056) ng/mL NT-Pro-B Natriuret Pep (0-125) pg/mL Total Protein (6.4-8.2) g/dL Albumin (3.4-5.0) g/dL Triglycerides (30-150) mg/dL Cholesterol (100-200) mg/dL LDL Cholesterol, Calc (0-100) mg/dL HDL Cholesterol (40-60) mg/dL Vitamin B12 (193-986) pg/mL TSH, Ultra Sensitive (0.358-3.740) mIU/mL Specimen Type Urine Color Urine Appearance Urine pH (5.0-9.0) Ur Specific Lead (1.005-1.030) Urine Protein (NEGATIVE) mg/dL Urine Glucose (UA) (NEGATIVE) mg/dL Urine Ketones (NEGATIVE) mg/dL Urine Occult Blood (NEGATIVE) Urine Nitrite (NEGATIVE) Urine Bilirubin (NEGATIVE) Urine Urobilinogen (0.2-1.0) E.U./dL Ur Leukocyte Esterase (NEGATIVE) Urine RBC /HPF Urine WBC /HPF Ur Epithelial Cells /LPF Urine Bacteria (NONE TO FEW) /HPF Urine Yeast (NEGATIVE) /HPF Urinalysis Comment Ketones Urine culture and sensitivity is pending Blood cultures x2 are pending COVID-19 is pending Edilberto Results Last 24 Hours: Microbiology 04/24/20 22:45 Influenza Type A Antigen Screen - Final Nasal, Left NEGATIVE INFLUENZA A VIRUS AG REFERENCE RANGE: NEGATIVE Influenza Type B Antigen Screen - Final NEGATIVE INFLUENZA B VIRUS AG REFERENCE RANGE: NEGATIVE Microbiology 04/24/20 22:45 Throat Group A Streptococcus Rapid Screen - Final NEGATIVE STREP A SCREEN REFERENCE RANGE: NEGATIVE 04/24/20 22:45 Nasal, Left Influenza Type A Antigen Screen - Final NEGATIVE INFLUENZA A VIRUS AG REFERENCE RANGE: NEGATIVE 04/24/20 22:45 Nasal, Left Influenza Type B Antigen Screen - Final NEGATIVE INFLUENZA B VIRUS AG REFERENCE RANGE: NEGATIVE Med Orders - Current: Current Medications Acetaminophen (Tylenol) 650 mg PO Q4H PRN PRN Reason: Pain/Fever Last Admin: 04/25/20 09:14 Dose: 650 mg Documented by: Albuterol (Proair Hfa) 0 gm INH Q2H PRN PRN Reason: Dyspnea Albuterol/Ipratropium (Combivent Respimat) 0 gm INH Q4H [facility] Last Admin: 04/25/20 08:30 Dose: 2 puff Documented by: Famotidine (Pepcid) 20 mg IVPUSH Q12H [facility] Last Admin: 04/25/20 01:07 Dose: 20 mg Documented by: Furosemide (Lasix) 40 mg IVPUSH Q8H [facility] Last Admin: 04/25/20 08:29 Dose: 40 mg Documented by: Gabapentin (Neurontin) 200 mg PO DAILY [facility] Last Admin: 04/25/20 08:28 Dose: 200 mg Documented by: Guaifenesin/Dextromethorphan (Mucinex Dm Er 600-30 Mg) 1 tab PO BID [facility] Last Admin: 04/25/20 08:28 Dose: 1 tab Documented by: Ceftriaxone Sodium 1 gm/ (Sodium Chloride) 100 mls @ 200 mls/hr IV Q12H [facility] Last Admin: 04/25/20 08:19 Dose: 200 mls/hr Documented by: Levofloxacin/Dextrose 500 mg/ (Premix) 100 mls @ 100 mls/hr IV Q24H [facility] Last Admin: 04/25/20 00:11 Dose: 100 mls/hr Documented by: Insulin Human Lispro (Humalog) 0 unit SUBCUT QIDACANDBED [facility]; Protocol Last Admin: 04/25/20 08:34 Dose: 6 units Documented by: Insulin Lispro Protam/Lispro Human (Humalog Mix 75-25) 10 unit SUBCUT BIDAC [facility]; Protocol Losartan Potassium (Cozaar) 50 mg PO DAILY [facility] Last Admin: 04/25/20 08:27 Dose: 50 mg Documented by: Magnesium Oxide (Magnesium Oxide) 400 mg PO BID [facility] Last Admin: 04/25/20 08:27 Dose: 400 mg Documented by: Metformin HCl (Glucophage) 500 mg PO BIDMEALS [facility] Last Admin: 04/25/20 08:26 Dose: 500 mg Documented by: Metoprolol Succinate (Toprol Xl) 25 mg PO QPM [facility] Neomycin/Polymyxin/Bacitracin (Triple Antibiotic Oint) 1 each TOP BID [facility] Nortriptyline HCl (Nortriptyline) 50 mg PO BEDTIME [facility] Potassium Chloride (Klor-Con M20) 20 meq PO TID [facility] Last Admin: 04/25/20 08:28 Dose: 20 meq Documented by: Sodium Chloride (Saline Flush) 10 ml FLUSH ASDIRECTED PRN PRN Reason: Keep Vein Open Sodium Chloride (Saline Flush) 10 ml FLUSH Q12H [facility] Last Admin: 04/25/20 08:20 Dose: 10 ml Documented by: Discontinued Medications Acetaminophen (Tylenol) 650 mg PO ONETIME ONE Stop: 04/24/20 18:48 Last Admin: 04/24/20 19:36 Dose: 650 mg Documented by: Albuterol/Ipratropium (Duoneb 3.0-0.5 Mg/3 Ml) 3 ml NEB Q6HRRT [facility] Last Admin: 04/25/20 02:07 Dose: Not Given Documented by: Fluconazole (Diflucan) 150 mg PO ONETIME ONE Stop: 04/25/20 01:41 Last Admin: 04/25/20 04:13 Dose: 150 mg Documented by: Fluconazole (Diflucan) Confirm Administered Dose 200 mg .ROUTE .STK-MED ONE Stop: 04/25/20 03:52 Last Admin: 04/25/20 04:15 Dose: Not Given Documented by: Lactated Ringer's (Ringers, Lactated) 1,000 mls @ 999 mls/hr IV .BOLUS ONE Stop: 04/24/20 20:17 Last Admin: 04/24/20 19:36 Dose: 999 mls/hr Documented by: Ceftriaxone Sodium 1 gm/ (Sodium Chloride) 100 mls @ 200 mls/hr IV ONETIME ONE Stop: 04/24/20 20:42 Last Admin: 04/24/20 20:28 Dose: 200 mls/hr Documented by: Insulin Human Regular (Humulin R) 10 unit IV ONETIME ONE Stop: 04/24/20 20:15 Last Admin: 04/24/20 20:30 Dose: 10 unit Documented by: Insulin Lispro Protam/Lispro Human (Humalog Mix 75-25) 10 unit SUBCUT ONETIME ONE; Protocol Stop: 04/25/20 00:02 Last Admin: 04/25/20 00:40 Dose: 10 unit Documented by: Insulin Lispro Protam/Lispro Human (Humalog Mix 75-25) 10 unit SUBCUT ONETIME ONE; Protocol Stop: 04/25/20 09:43 Last Admin: 04/25/20 10:01 Dose: 10 units Documented by: Magnesium Oxide (Magnesium Oxide) 400 mg PO DAILY [facility]IE Metoprolol Tartrate (Lopressor) 2.5 mg IVPUSH ONETIME ONE Stop: 04/24/20 19:43 Last Admin: 04/24/20 20:10 Dose: 2.5 mg Documented by: Metoprolol Tartrate (Lopressor) 25 mg PO ONETIME ONE Stop: 04/24/20 23:18 Last Admin: 04/25/20 00:07 Dose: 25 mg Documented by: - Exam Quality Assessment: Urine Catheter, DVT Prophylaxis (No Lovenox given secondary to patient's thrombocytopenia). No: Supplemental Oxygen, Restraints General: Alert, Oriented, Cooperative, No Acute Distress HEENT: Pupils Equal, Pupils Reactive, EOMI, Mucous Membr. Moist/[place], Other (Patient is wearing glasses) Neck: Supple, Trachea Midline, No JVD, No Thyromegaly, +2 Carotid Pulse wo Bruit. No: Lymphadenopathy Lungs: Normal Respiratory Effort, Decreased Breath Sounds (Left base), Rales (Mild bilateral basilar rales, left greater than right). No: Rhonchi, Rub, Wheezing Cardiovascular: Regular Rate, No Murmurs, Tachycardia (Mild). No: Murmurs, Gallops (Urine tests should be repeated at follow up visit with possible repeat urine culture,etc. at that time. Today's urine culture is pending with results in about 2-3 days. We will call you, if we need to change your therapy.), Rubs GI/Abdominal Exam: Normal Bowel Sounds, Soft, Non-Tender, No Organomegaly, No Distention, No Abnormal Bruit, No Mass, Pelvis Stable, Other (Obese). No: Guarding (Female) Exam: Deferred Back Exam: Normal Inspection, Full Range of Motion. No: CVA Tenderness (L), CVA Tenderness (R), Muscle Spasm Extremities: Normal Range of Motion, Non-Tender, Normal Capillary Refill, Pedal Edema (Stable severe lymphedema of the lower extremities). No: Sonu's Sign Peripheral Pulses: 1+: Dorsalis Pedis (L) (Secondary to lymphedema), Dorsalis Pedis (R) (As above), 2+: Radial (L), Radial (R) Skin: Ecchymosis (As above) Wound/Incisions: Healing Well (As above), No Drainage. No: Erythema Neurological: No New Focal Deficit Psy/Mental Status: Anxious (Mild), Depressed (Mild). No: Agitated, Hallucinations, Withdrawal Symptoms EKG INTERPRETATION EKG Date: 04/25/20 Time: 08:33 Rhythm: Other (Sinus tachycardia) Rate (Beats/Min): 102 [place]: LAD-Left [place] Deviation (Extended left cardiac axis) P-Wave: Enlarged (Moderate diffuse biphasic P waves with poor R wave progression in the anterior leads) QRS: Normal (0.09 seconds representing repolarization changes with T wave inversion in lead V1) ST-T: Normal QT: Normal RI/PQ Interval: 0.16 seconds Comparison: NA - No Prior EKG EKG Interpretation Comments: 1. No acute ischemic changes 2. Sinus tachycardia 3. Left atrial enlargement Sepsis Event Note - Evaluation Sepsis Screening Result: No Definite Risk - Focused Exam Vital Signs: Vital Signs Temp Pulse Pulse Resp BP BP BP 04/25/20 08:27 111/63 04/25/20 08:00 36.6 C 101 H 14 111/63 04/25/20 04:00 36.6 C 99 20 108/54 L 04/25/20 00:07 119 H 123/70 04/24/20 23:20 37.2 C 119 H 20 123/70 Pulse Ox 04/25/20 08:27 04/25/20 08:00 94 L 04/25/20 04:00 96 04/25/20 00:07 04/24/20 23:20 96 - Problem List & Annotations (1) Pneumonia SNOMED Code(s): 363465607 Code(s): J18.9 - PNEUMONIA, UNSPECIFIED ORGANISM Status: Acute Priority: High Current Visit: Yes Onset Date: 04/24/20 Qualifiers: Pneumonia type: due to unspecified organism Laterality: left Lung location: lower lobe of lung Qualified Code(s): J18.9 - Pneumonia, unspecified organism Annotation/Comment:: Bilateral pneumonia especially in the left lower lobe pneumonia by chest x-ray. IV Rocephin therapy initiated in the emergency room with additional IV Lovenox initiated after admission. Attempt to obtain a sputum DEJA, however she only has a mild nonproductive cough at this time. Blood cultures x2 were collected prior to initiation of IV antibiotic therapy as above. COVID-19 specimen collected with results pending. (2) Lactic acid increased SNOMED Code(s): 24701131 Code(s): E87.2 - ACIDOSIS Status: Acute Priority: High Current Visit: Yes Onset Date: 04/24/20 Annotation/Comment:: 3-hour post admission lactic acid was normal. IV lactated Ringer's and IV Rocephin initiated in the emergency room. Standard sepsis protocol was followed, however no clinical evidence of sepsis. (3) CHF (congestive heart failure) SNOMED Code(s): 95831730 Code(s): I50.9 - HEART FAILURE, UNSPECIFIED Status: Acute Priority: High Current Visit: Yes Qualifiers: Heart failure type: unspecified Heart failure chronicity: acute Qualified Code(s): I50.9 - Heart failure, unspecified Annotation/Comment:: No chest pain or anginal complaints. EKG on 04/25 did not show any evidence of acute ischemic changes. Patient is already on losartan. IV Lasix therapy initiated. Echocardiogram on an outpatient basis. (4) Asthma SNOMED Code(s): 248497499 Code(s): J45.909 - UNSPECIFIED ASTHMA, UNCOMPLICATED Status: Chronic Priority: Medium Current Visit: Yes Qualifiers: Asthma severity: mild Asthma persistence: intermittent Asthma complication type: uncomplicated Qualified Code(s): J45.20 - Mild intermittent asthma, uncomplicated Annotation/Comment:: Stable during this hospitalization. Secondary to current COVID-19 pandemic high-dose inhalers will be used rather than inhalers. Consider PFTs once the patient is back to her normal baseline. (5) Tachycardia SNOMED Code(s): 8783887 Code(s): R00.0 - TACHYCARDIA, UNSPECIFIED Status: Chronic Priority: High Current Visit: Yes Annotation/Comment:: Sinus tachycardia significant improved with additional low-dose beta-mars therapy. Apparent previous history of intermittent sinus tachycardia without previous work-up. IV Lopressor initially given in the emergency room with oral Toprol-XL therapy after admission. No evidence of chest pain or anginal type symptoms. Note CHF as below with consideration of cardiac work-up on an outpatient basis, including echocardiogram, possible dobutamine Cardiolite stress test, etc.. (6) Hyponatremia SNOMED Code(s): 99628528 Code(s): E87.1 - HYPO-OSMOLALITY AND HYPONATREMIA Status: Acute Priority: Medium Current Visit: Yes Onset Date: 04/24/20 Annotation/Comment:: Likely secondary to CHF. Observe for now. Lactated Ringer's given in the emergency room as above. (7) Diabetes mellitus type 2 in obese SNOMED Code(s): 54925224 Code(s): E11.69 - TYPE 2 DIABETES MELLITUS WITH OTHER SPECIFIED COMPLICATION; E66.9 - OBESITY, UNSPECIFIED Status: Chronic Priority: Medium Current Visit: Yes Annotation/Comment:: The patient is now insulin-dependent with change of her previous oral medication to metformin. Diabetic teaching initiated during this hospitalization, however her is also diabetic and the patient is familiar with insulin administration. Severe hyperglycemia with IV human regular insulin given in the emergency room. Initial plans to initiate insulin infusion per standard protocol after admission were canceled secondary to the patient being an extremely difficult blood draw and not allowing proper regularly scheduled venous evaluations. The patient was started on Humalog mix and placed on a 4 times daily Humalog sliding scale to determine her insulin requirement. In the a.m. of 04/25 the patient was started on a twice daily Humalog mix regimen with further adjustment during this hospitalization based on her sliding scales as above. Glycosylated hemoglobin of 9.7% on 04/25. Weight loss in moderation is advisable. (8) GERD (gastroesophageal reflux disease) SNOMED Code(s): 741229305 Code(s): K21.9 - GASTRO-ESOPHAGEAL REFLUX DISEASE WITHOUT ESOPHAGITIS Status: Chronic Priority: Medium Current Visit: Yes Qualifiers: Esophagitis presence: without esophagitis Qualified Code(s): K21.9 - Gastro-esophageal reflux disease without esophagitis Annotation/Comment:: Stable by history. Initiated IV Pepcid on admission as GI prophylaxis. No evidence of acute GI bleed with stable anemia and thrombocytopenia as below. (9) Gilbert's disease SNOMED Code(s): 06890684 Code(s): E80.4 - GILBERT SYNDROME Status: Chronic Priority: Medium Current Visit: Yes Onset Date: ~04/14/20 Annotation/Comment:: Benign disease. Observe for now. Stable per medical records. (10) Hyperlipidemia SNOMED Code(s): 97438539 Code(s): E78.5 - HYPERLIPIDEMIA, UNSPECIFIED Status: Chronic Priority: Medium Current Visit: Yes Qualifiers: Hyperlipidemia type: other hyperlipidemia Qualified Code(s): E78.49 - Other hyperlipidemia; E78.4 - Other hyperlipidemia Annotation/Comment:: Not currently under therapy. Lipid panel on 04/25 did show some moderate dyslipidemia. Consider statin versus gemfibrozil therapy at discharge. Weight loss in moderation advisable. (11) Hypertension SNOMED Code(s): 85273296 Code(s): I10 - ESSENTIAL (PRIMARY) HYPERTENSION Status: Chronic Priority: High Current Visit: Yes Qualifiers: Hypertension type: essential hypertension Qualified Code(s): I10 - Essential (primary) hypertension Annotation/Comment:: Somewhat elevated in the emergency room with multiple medication adjustments during this hospitalization as above. Blood pressure significantly improved during the early phases of this hospitalization. Pete nue to observe closely by her regular providers. (12) Thrombocytopenia SNOMED Code(s): 045355222 Code(s): D69.6 - THROMBOCYTOPENIA, UNSPECIFIED Status: Chronic Priority: Medium Current Visit: Yes Annotation/Comment:: Currently followed by hemeoncology at [facility] with repeat bone marrow needle aspiration biopsy apparently previously conducted? Stable thrombocytopenia and anemia with normal vitamin B12 level on 04/25. TIBC panel to be conducted on 04/26. (13) Anemia SNOMED Code(s): 036589909 Code(s): D64.9 - ANEMIA, UNSPECIFIED Status: Acute Priority: Medium Current Visit: Yes Qualifiers: Anemia type: unspecified type Qualified Code(s): D64.9 - Anemia, unspecified Annotation/Comment:: As above. No evidence of acute GI bleed. IV Pepcid given as above. (14) Hypoalbuminemia SNOMED Code(s): 683553193 Code(s): E88.09 - OTH DISORDERS OF PLASMA-PROTEIN METABOLISM, NEC Status: Acute Priority: Medium Current Visit: Yes Onset Date: 04/24/20 Annotation/Comment:: Observe for now. Note lymphedema. (15) UTI (urinary tract infection) SNOMED Code(s): 58666788 Code(s): N39.0 - URINARY TRACT INFECTION, SITE NOT SPECIFIED Status: Acute Priority: High Current Visit: Yes Qualifiers: Urinary tract infection type: acute cystitis Hematuria presence: without hematuria Qualified Code(s): N30.00 - Acute cystitis without hematuria Annotation/Comment:: Urine culture and sensitivity is still pending. IV Rocephin and IV Levaquin initiated as above. (16) Vaginal moniliasis SNOMED Code(s): 90577788 Code(s): B37.3 - CANDIDIASIS OF VULVA AND VAGINA Status: Chronic Priority: Medium Current Visit: Yes Annotation/Comment:: 3-month history of chronic vaginal discharge/moniliasis likely secondary to her diabetes. 1 dose of Diflucan ordered on 04/25. Continue to observe closely secondary to IV antibiotics as above. - Problem List Review Problem List Initiated/Reviewed/Updated: Yes - My Orders Last 24 Hours: My Active Orders 04/24/20 18:47 Cardiac Monitoring [RC] Q2HR Communication Order [RC] ROUTINE Chest 1V Frontal [CR] Stat CULTURE SPUTUM + SMEAR [RM] Urgent Sodium Chloride 0.9% [Saline Flush] 10 ml FLUSH ASDIRECTED PRN Blood Culture x2 Reflex Set [OM.PC] Stat Isolation [COMM] Routine Peripheral IV Insertion Adult [OM.PC] Stat Resuscitation Status Routine 04/24/20 19:32 CULTURE BLOOD [BC] Stat 04/24/20 22:45 CORONAVIRUS COVID-19 PCR PHL Urgent CULTURE STREP A CONFIRMATION [RM] Stat STREP SCRN A RAPID W CULT CONF [RM] Stat 04/24/20 23:15 CULTURE URINE [RM] Routine 04/24/20 23:17 Antiembolic Devices [RC] 08,20 Communication Order [RC] DAILY Communication Order [RC] PER UNIT ROUTINE Height and Weight [RC] DAILY Intake and Output Strict [RC] 06,18 Oxygen Therapy [RC] .PRN Pulse Oximetry [RC] .PRN Vital Signs [RC] Q4HR Acetaminophen [TylenoL] 650 mg PO Q4H PRN CHF Questionnaire [COMM] Routine DVT/VTE Prophylaxis Reflex [OM.PC] Routine GM Immunization Reflex [OM.PC] Click to Edit 04/24/20 23:20 Blood Glucose Check, Bedside [RC] STAT 04/24/20 23:45 Albuterol/Ipratropium [Combivent Respimat] See Dose Instructions INH Q4H 04/24/20 23:57 Albuterol [Proair HFA] See Dose Instructions INH Q2H PRN 04/24/20 23:58 RT Post Treatment Assessment [RC] Click to Edit RT Pre-Treatment Assessment [RC] Click to Edit 04/25/20 00:00 Levofloxacin/Dextrose 5%-Water [Levaquin in D5W 500 MG/100 ML] 500 mg Premix Bag 1 bag IV Q24H Sodium Chloride 0.9% [Saline Flush] 10 ml FLUSH Q12H 04/25/20 00:01 Blood Glucose Check, Bedside [RC] QIDACANDBED 04/25/20 00:10 Communication Order [RC] 199904/25/20 00:14 Communication Order [RC] DAILY 04/25/20 00:15 Famotidine [Pepcid] 20 mg IVPUSH Q12H 04/25/20 00:30 Furosemide [Lasix] 40 mg IVPUSH Q8H 04/25/20 03:00 Blood Glucose Check, Bedside [RC] STAT 04/25/20 05:11 EKG Documentation Completion [RC] ASDIRECTED 04/25/20 Breakfast Fluid Restriction [DIET] Insulin Lispro [HumaLOG] See Protocol SUBCUT QIDACANDBED metFORMIN [Glucophage] 500 mg PO BIDMEALS 04/25/20 08:00 Dextromethorphan/guaiFENesin [Mucinex DM ER 600-30 MG] 1 tab PO BID Gabapentin [Neurontin] 200 mg PO DAILY Losartan [Cozaar] 50 mg PO DAILY Magnesium Oxide 400 mg PO BID Potassium Chloride [Klor-Con M20] 20 meq PO TID 04/25/20 09:00 cefTRIAXone [Rocephin] 1 gm Sodium Chloride 0.9% [Normal Saline] 100 ml IV Q12H 04/25/20 10:15 Bacitracin/Neomycin/Polymyxin [Triple Antibiotic Oint] 1 each TOP BID 04/25/20 17:30 Insulin Lispro Prot/Lispro [HumaLOG Mix 75-25] 10 unit SUBCUT BIDAC 04/25/20 18:00 Metoprolol Succinate [Toprol XL] 25 mg PO QPM 04/25/20 20:00 Nortriptyline 50 mg PO BEDTIME 04/26/20 03:00 Blood Glucose Check, Bedside [RC] STAT 04/26/20 05:11 Chest 2V [CR] Routine CBC WITH AUTO DIFF [HEME] Routine COMPREHENSIVE METABOLIC PN,CMP [CHEM] Routine GLYCOSYLATED HEMOGLOBIN,HGBA1C [CHEM] Routine IRON/TIBC [CHEM] Routine LIPID PANEL [CHEM] Routine PHOSPHORUS [CHEM] Routine PRO B-TYPE NATRIUR PEPT,BNPPRO [CHEM] Routine - Assessment Assessment:: As above - Plan Plan:: As above. Extensive precautions were given to the patient, who is in agreement with the treatment plan. The patient will require about 2-3 days of inpatient/acute care secondary to multiple health problems as above. [facility] physician assumes care later this afternoon.
[2020-04-25] MEDS ORDERED: Bacitracin/Neomycin/Polymyxin B Oint 0.9 GM U/D Packet TOP SCH (10:15)
[2020-04-25 10:52] LABS: HEMOGLOBIN A1C 9.7 % (4.3-5.7)
[2020-04-25] MEDS: Metoprolol Succinate 25 MG Tab.ER PO SCH (17:10)
[2020-04-25] MEDS: Insulin Lispro Protamine/Lispro 75-25 100 Units/ML 10 ML Vial SUBCUT SCH (17:12)
[2020-04-25] MEDS: Nortriptyline 25 MG Cap PO SCH (19:40)
[2020-04-25] MEDS: Bacitracin/Neomycin/Polymyxin B Oint 0.9 GM U/D Packet TOP SCH (19:40)
[2020-04-25] MEDS ORDERED: Insulin Lispro 100 Units/ML 3 ML Vial SUBCUT STA (21:47)
[2020-04-25] MEDS: Sodium Chloride 0.9% 10 ML Syringe FLUSH PRN ×2 (23:47→23:54)
[2020-04-26] MEDS: Sodium Chloride 0.9% 10 ML Syringe FLUSH SCH ×2 (00:12→11:56)
[2020-04-26] MEDS: Albuterol/Ipratropium 4 GM Inhalation Spray INH SCH ×5 (04:28→20:05)
[2020-04-26 08:02] LABS: CHLORIDE,CL 102 mmol/L (98-107); SODIUM,NA 138 mmol/L (136-145)
[2020-04-26] MEDS: metFORMIN 500 MG Tab PO SCH ×2 (08:03→17:07)
[2020-04-26] MEDS: Insulin Lispro 100 Units/ML 3 ML Vial SUBCUT SCH ×4 (08:04→20:53)
[2020-04-26] MEDS: Insulin Lispro Protamine/Lispro 75-25 100 Units/ML 10 ML Vial SUBCUT SCH ×2 (08:08→17:41)
[2020-04-26] MEDS: Losartan 50 MG Tab PO SCH (08:10)
[2020-04-26] MEDS: Potassium Chloride 20 MEQ Tab.ER PO SCH (08:11)
[2020-04-26] MEDS: Gabapentin 100 MG Cap PO SCH (08:12)
[2020-04-26] MEDS: Dextromethorphan/guaiFENesin 600-30 MG Tab.ER PO SCH ×2 (08:12→17:07)
[2020-04-26] MEDS: Magnesium Oxide 400 MG Tab PO SCH ×2 (08:12→17:07)
[2020-04-26] MEDS: Bacitracin/Neomycin/Polymyxin B Oint 0.9 GM U/D Packet TOP SCH ×2 (08:13→20:06)
[2020-04-26] MEDS: cefTRIAXone 1 GM in Sodium Chloride 0.9% 100 ML IV SCH ×2 (08:13→20:43)
--- NOTE | 2020-04-26 08:51 | PCM.PN ---
- General Info Date of Service: 04/26/20 Admission Dx/Problem (Free Text): 1. Pneumonia 2. Asthma exacerbation 3. Lactic acid elevation 4. CHF 5. Tachycardia Functional Status: Reports: Pain Controlled - Review of Systems General: Denies: Fever, Weakness, Chills HEENT: Reports: No Symptoms Pulmonary: Reports: Cough. Denies: Shortness of Breath, Sputum, Hemoptysis Cardiovascular: Denies: Chest Pain, Palpitations Gastrointestinal: Denies: Abdominal Pain, Nausea, Vomiting Genitourinary: Denies: Dysuria Neurological: Denies: Confusion, Dizziness - Patient Data Vitals - Most Recent: Last Vital Signs Temp 37.2 C 04/26/20 08:00 Pulse 114 H 04/26/20 08:00 Resp 18 04/26/20 08:00 BP 113/62 04/26/20 08:10 Pulse Ox 96 04/26/20 08:00 Weight - Most Recent: 126.552 kg I&O - Last 24 Hours: Intake & Output 04/25/20 04/26/20 04/26/20 22:59 06:59 14:59 Intake Total 750 200 Output Total 100 500 Balance 650 -300 Lab Results Last 24 Hours: Laboratory Results - last 24 hr 04/25/20 04/25/20 04/25/20 Range/Units 07:28 07:28 08:18 Sodium (136-145) mmol/L Potassium (3.5-5.1) mmol/L Chloride (98-107) mmol/L Carbon Dioxide (21.0-32.0) mmol/L BUN (7-18) mg/dL Creatinine (0.51-1.17) mg/dL Est Cr Clr Drug Dosing mL/min Estimated GFR (MDRD) mL/min Glucose (74-106) mg/dL POC Glucose 235 H (65-110) mg/dl Hemoglobin A1c 9.7 H (4.3-5.7) % Calcium (8.5-10.1) mg/dL Phosphorus 3.8 (2.6-4.7) mg/dL Magnesium (1.8-2.4) mg/dL Iron (50-175) ug/dL TIBC (250-450) ug/dL % Saturation Troponin I (0.000-0.056) ng/mL NT-Pro-B Natriuret Pep (0-125) pg/mL Triglycerides 52 (30-150) mg/dL Cholesterol 86 L (100-200) mg/dL LDL Cholesterol, Calc 47 (0-100) mg/dL HDL Cholesterol 29 L (40-60) mg/dL Vitamin B12 752 (193-986) pg/mL 04/25/20 04/25/20 04/25/20 Range/Units 12:07 16:57 19:33 Sodium (136-145) mmol/L Potassium (3.5-5.1) mmol/L Chloride (98-107) mmol/L Carbon Dioxide (21.0-32.0) mmol/L BUN (7-18) mg/dL Creatinine (0.51-1.17) mg/dL Est Cr Clr Drug Dosing mL/min Estimated GFR (MDRD) mL/min Glucose (74-106) mg/dL POC Glucose 225 H 317 H* 404 H* (65-110) mg/dl Hemoglobin A1c (4.3-5.7) % Calcium (8.5-10.1) mg/dL Phosphorus (2.6-4.7) mg/dL Magnesium (1.8-2.4) mg/dL Iron (50-175) ug/dL TIBC (250-450) ug/dL % Saturation Troponin I (0.000-0.056) ng/mL NT-Pro-B Natriuret Pep (0-125) pg/mL Triglycerides (30-150) mg/dL Cholesterol (100-200) mg/dL LDL Cholesterol, Calc (0-100) mg/dL HDL Cholesterol (40-60) mg/dL Vitamin B12 (193-986) pg/mL 04/26/20 04/26/20 04/26/20 Range/Units 06:50 06:50 07:49 Sodium 138 (136-145) mmol/L Potassium 4.1 (3.5-5.1) mmol/L Chloride 102 (98-107) mmol/L Carbon Dioxide 31.2 (21.0-32.0) mmol/L BUN 14 (7-18) mg/dL Creatinine 0.90 (0.51-1.17) mg/dL Est Cr Clr Drug Dosing 58.12 mL/min Estimated GFR (MDRD) > 60 mL/min Glucose 206 H (74-106) mg/dL POC Glucose 182 H (65-110) mg/dl Hemoglobin A1c (4.3-5.7) % Calcium 9.4 (8.5-10.1) mg/dL Phosphorus (2.6-4.7) mg/dL Magnesium 1.6 L (1.8-2.4) mg/dL Iron 31 L (50-175) ug/dL TIBC 234 L (250-450) ug/dL % Saturation 13.70648 Troponin I 0.000 (0.000-0.056) ng/mL NT-Pro-B Natriuret Pep 838 H (0-125) pg/mL Triglycerides (30-150) mg/dL Cholesterol (100-200) mg/dL LDL Cholesterol, Calc (0-100) mg/dL HDL Cholesterol (40-60) mg/dL Vitamin B12 (193-986) pg/mL Edilberto Results Last 24 Hours: Microbiology 04/24/20 23:15 Urine Culture - Final Urine, Clean Catch 04/24/20 22:45 Quick Strep Confirmation Culture - Final Throat NO GROUP A STREP ISOLATED REFERENCE RANGE: NEGATIVE Group A Streptococcus Rapid Screen - Final NEGATIVE STREP A SCREEN REFERENCE RANGE: NEGATIVE 04/24/20 19:32 Aerobic Blood Culture - Preliminary Blood - Venous NO GROWTH AFTER 1 DAY Anaerobic Blood Culture - Preliminary NO GROWTH AFTER 1 DAY Med Orders - Current: Current Medications Acetaminophen (Tylenol) 650 mg PO Q4H PRN PRN Reason: Pain/Fever Last Admin: 04/25/20 09:14 Dose: 650 mg Documented by: Albuterol (Proair Hfa) 0 gm INH Q2H PRN PRN Reason: Dyspnea Albuterol/Ipratropium (Combivent Respimat) 0 gm INH Q4H [facility] Last Admin: 04/26/20 08:10 Dose: 2 puff Documented by: Famotidine (Pepcid) 20 mg IVPUSH Q12H [facility] Last Admin: 04/25/20 23:48 Dose: 20 mg Documented by: Gabapentin (Neurontin) 200 mg PO DAILY [facility] Last Admin: 04/26/20 08:12 Dose: 200 mg Documented by: Guaifenesin/Dextromethorphan (Mucinex Dm Er 600-30 Mg) 1 tab PO BID [facility] Last Admin: 04/26/20 08:12 Dose: 1 tab Documented by: Ceftriaxone Sodium 1 gm/ (Sodium Chloride) 100 mls @ 200 mls/hr IV Q12H [facility] Last Admin: 04/26/20 08:13 Dose: 200 mls/hr Documented by: Levofloxacin/Dextrose 500 mg/ (Premix) 100 mls @ 100 mls/hr IV Q24H [facility] Last Admin: 04/25/20 23:47 Dose: 100 mls/hr Documented by: Insulin Human Lispro (Humalog) 0 unit SUBCUT QIDACANDBED [facility]; Protocol Last Admin: 04/26/20 08:04 Dose: 2 units Documented by: Insulin Lispro Protam/Lispro Human (Humalog Mix 75-25) 10 unit SUBCUT BIDAC [facility]; Protocol Last Admin: 04/26/20 08:08 Dose: 2 units Documented by: Losartan Potassium (Cozaar) 50 mg PO DAILY [facility] Last Admin: 04/26/20 08:10 Dose: 50 mg Documented by: Magnesium Oxide (Magnesium Oxide) 400 mg PO BID [facility] Last Admin: 04/26/20 08:12 Dose: 400 mg Documented by: Metformin HCl (Glucophage) 500 mg PO BIDMEALS [facility] Last Admin: 04/26/20 08:03 Dose: 500 mg Documented by: Metoprolol Succinate (Toprol Xl) 25 mg PO QPM [facility] Last Admin: 04/25/20 17:10 Dose: Not Given Documented by: Neomycin/Polymyxin/Bacitracin (Triple Antibiotic Oint) 1 each TOP Q12HR [facility] Last Admin: 04/26/20 08:13 Dose: 1 each Documented by: Nortriptyline HCl (Nortriptyline) 50 mg PO BEDTIME [facility] Last Admin: 04/25/20 19:40 Dose: 50 mg Documented by: Potassium Chloride (Klor-Con M20) 20 meq PO TID [facility] Last Admin: 04/26/20 08:11 Dose: 20 meq Documented by: Sodium Chloride (Saline Flush) 10 ml FLUSH ASDIRECTED PRN PRN Reason: Keep Vein Open Last Admin: 04/25/20 23:54 Dose: 10 ml Documented by: Sodium Chloride (Saline Flush) 10 ml FLUSH Q12H [facility] Last Admin: 04/26/20 00:12 Dose: Not Given Documented by: Discontinued Medications Acetaminophen (Tylenol) 650 mg PO ONETIME ONE Stop: 04/24/20 18:48 Last Admin: 04/24/20 19:36 Dose: 650 mg Documented by: Albuterol/Ipratropium (Duoneb 3.0-0.5 Mg/3 Ml) 3 ml NEB Q6HRRT [facility] Last Admin: 04/25/20 02:07 Dose: Not Given Documented by: Fluconazole (Diflucan) 150 mg PO ONETIME ONE Stop: 04/25/20 01:41 Last Admin: 04/25/20 04:13 Dose: 150 mg Documented by: Fluconazole (Diflucan) Confirm Administered Dose 200 mg .ROUTE .STK-MED ONE Stop: 04/25/20 03:52 Last Admin: 04/25/20 04:15 Dose: Not Given Documented by: Furosemide (Lasix) 40 mg IVPUSH Q8H [facility] Last Admin: 04/25/20 17:09 Dose: Not Given Documented by: Lactated Ringer's (Ringers, Lactated) 1,000 mls @ 999 mls/hr IV .BOLUS ONE Stop: 04/24/20 20:17 Last Admin: 04/24/20 19:36 Dose: 999 mls/hr Documented by: Ceftriaxone Sodium 1 gm/ (Sodium Chloride) 100 mls @ 200 mls/hr IV ONETIME ONE Stop: 04/24/20 20:42 Last Admin: 04/24/20 20:28 Dose: 200 mls/hr Documented by: Insulin Human Lispro (Humalog) 10 unit SUBCUT ONETIME STA Stop: 04/25/20 21:48 Last Admin: 04/25/20 22:08 Dose: 10 units Documented by: Insulin Human Regular (Humulin R) 10 unit IV ONETIME ONE Stop: 04/24/20 20:15 Last Admin: 04/24/20 20:30 Dose: 10 unit Documented by: Insulin Lispro Protam/Lispro Human (Humalog Mix 75-25) 10 unit SUBCUT ONETIME ONE; Protocol Stop: 04/25/20 00:02 Last Admin: 04/25/20 00:40 Dose: 10 unit Documented by: Insulin Lispro Protam/Lispro Human (Humalog Mix 75-25) 10 unit SUBCUT ONETIME ONE; Protocol Stop: 04/25/20 09:43 Last Admin: 04/25/20 10:01 Dose: 10 units Documented by: Magnesium Oxide (Magnesium Oxide) 400 mg PO DAILY [facility] Metoprolol Tartrate (Lopressor) 2.5 mg IVPUSH ONETIME ONE Stop: 04/24/20 19:43 Last Admin: 04/24/20 20:10 Dose: 2.5 mg Documented by: Metoprolol Tartrate (Lopressor) 25 mg PO ONETIME ONE Stop: 04/24/20 23:18 Last Admin: 04/25/20 00:07 Dose: 25 mg Documented by: Neomycin/Polymyxin/Bacitracin (Triple Antibiotic Oint) 1 each TOP BID [facility] Last Admin: 04/25/20 12:08 Dose: 1 each Documented by: - Exam General: Alert, Oriented Lungs: Normal Respiratory Effort, Other (occasional slight diffuse wheeze. Few slight crackles left lower lung field.) Cardiovascular: Regular Rate, Tachycardia (Mild tachycardia) Skin: Warm, Dry Psy/Mental Status: Alert, Normal Affect Sepsis Event Note - Evaluation Sepsis Screening Result: No Definite Risk - Focused Exam Vital Signs: Vital Signs Temp Pulse Resp BP BP Pulse Ox 04/26/20 08:10 113/62 04/26/20 08:00 37.2 C 114 H 18 113/62 96 04/26/20 04:00 36.6 C 112 H 12 104/56 L 93 L 04/25/20 23:58 36.6 C 112 H 20 128/53 L 96 - Problem List Review Problem List Initiated/Reviewed/Updated: Yes - My Orders Last 24 Hours: My Active Orders 04/25/20 21:49 Communication Order [RC] ROUTINE - Assessment Assessment:: Pneumonia. Tachycardia - Plan Plan:: Continue IV antibiotics. Antifungal powder to skin fold areas as needed. Diflucan 200 mg daily.
[2020-04-26] MEDS: Nystatin Topical Powder 15 GM Bottle TOP SCH ×2 (11:55→20:06)
[2020-04-26] MEDS: Famotidine 20 MG/2 ML SDV IVPUSH SCH (11:57)
[2020-04-26] MEDS: Metoprolol Succinate 25 MG Tab.ER PO SCH (17:07)
[2020-04-26] MEDS: Nortriptyline 25 MG Cap PO SCH (20:06)
[2020-04-26] MEDS: Sodium Chloride 0.9% 10 ML Syringe FLUSH PRN (20:43)
[2020-04-27] MEDS: Sodium Chloride 0.9% 10 ML Syringe FLUSH SCH ×2 (00:04→13:00)
[2020-04-27] MEDS: Levofloxacin/Dextrose 5%-Water 500 MG in Premix Bag 1 BAG IV SCH (00:04)
[2020-04-27] MEDS: Albuterol/Ipratropium 4 GM Inhalation Spray INH SCH ×7 (00:06→23:30)
[2020-04-27] MEDS: Sodium Chloride 0.9% 10 ML Syringe FLUSH PRN ×4 (00:06→20:21)
[2020-04-27] MEDS: Famotidine 20 MG/2 ML SDV IVPUSH SCH ×2 (01:08→12:48)
[2020-04-27] MEDS: Gabapentin 100 MG Cap PO SCH (07:58)
[2020-04-27] MEDS: metFORMIN 500 MG Tab PO SCH ×2 (07:58→17:06)
[2020-04-27] MEDS: Dextromethorphan/guaiFENesin 600-30 MG Tab.ER PO SCH ×2 (07:58→17:06)
[2020-04-27] MEDS: Losartan 50 MG Tab PO SCH (07:58)
[2020-04-27] MEDS: Bacitracin/Neomycin/Polymyxin B Oint 0.9 GM U/D Packet TOP SCH ×2 (07:59→20:27)
[2020-04-27] MEDS: Magnesium Oxide 400 MG Tab PO SCH ×2 (07:59→17:06)
[2020-04-27] MEDS: Insulin Lispro 100 Units/ML 3 ML Vial SUBCUT SCH ×4 (08:00→20:31)
[2020-04-27] MEDS: Insulin Lispro Protamine/Lispro 75-25 100 Units/ML 10 ML Vial SUBCUT SCH ×2 (08:00→17:09)
[2020-04-27] MEDS: Nystatin Topical Powder 15 GM Bottle TOP SCH ×2 (08:02→20:28)
[2020-04-27] MEDS: cefTRIAXone 1 GM in Sodium Chloride 0.9% 100 ML IV SCH ×2 (08:02→20:21)
--- NOTE | 2020-04-27 10:50 | PCM.PN ---
- General Info Date of Service: 04/27/20 Admission Dx/Problem (Free Text): 1. Pneumonia 2. Asthma exacerbation 3. Lactic acid elevation 4. CHF 5. Tachycardia Subjective Update: Overall doing well. She denies any shortness of breath. Occasional cough. No fever or chills. No chest pain or tightness. She does have swelling in the left ankle which is chronic but has developed some redness in the lateral aspect which is new. The redness has decreased over the last 24 hours. No nausea or vomiting. She has needed 20 extra units of insulin in addition to the 10 units of Humulin 75/25 she gets twice daily. She is still mildly tachycardic. - Patient Data Vitals - Most Recent: Last Vital Signs Temp 36.6 C 04/27/20 08:00 Pulse 106 H 04/27/20 08:00 Resp 16 04/27/20 08:00 BP 123/89 04/27/20 08:00 Pulse Ox 98 04/27/20 08:00 Weight - Most Recent: 126.552 kg I&O - Last 24 Hours: Intake & Output 04/26/20 04/27/20 04/27/20 22:59 06:59 14:59 Intake Total 730 200 120 Output Total 500 575 Balance 230 -375 120 Lab Results Last 24 Hours: Laboratory Results - last 24 hr 04/26/20 04/26/20 04/26/20 Range/Units 11:07 16:21 19:57 POC Glucose 211 H 272 H* 337 H* (65-110) mg/dl 04/27/20 Range/Units 07:48 POC Glucose 227 H (65-110) mg/dl Edilberto Results Last 24 Hours: Microbiology 04/24/20 19:32 Aerobic Blood Culture - Preliminary Blood - Venous NO GROWTH AFTER 2 DAYS Anaerobic Blood Culture - Preliminary NO GROWTH AFTER 2 DAYS 04/24/20 23:15 Urine Culture - Final Urine, Clean Catch 04/24/20 22:45 Quick Strep Confirmation Culture - Final Throat NO GROUP A STREP ISOLATED REFERENCE RANGE: NEGATIVE Group A Streptococcus Rapid Screen - Final NEGATIVE STREP A SCREEN REFERENCE RANGE: NEGATIVE Med Orders - Current: Current Medications Acetaminophen (Tylenol) 650 mg PO Q4H PRN PRN Reason: Pain/Fever Last Admin: 04/25/20 09:14 Dose: 650 mg Documented by: Albuterol (Proair Hfa) 0 gm INH Q2H PRN PRN Reason: Dyspnea Albuterol/Ipratropium (Combivent Respimat) 0 gm INH Q4H REPLACED BY [facility] Last Admin: 04/27/20 07:59 Dose: 2 puff Documented by: Famotidine (Pepcid) 20 mg IVPUSH Q12H REPLACED BY [facility] Last Admin: 04/27/20 01:08 Dose: 20 mg Documented by: Gabapentin (Neurontin) 200 mg PO DAILY REPLACED BY [facility] Last Admin: 04/27/20 07:58 Dose: 200 mg Documented by: Guaifenesin/Dextromethorphan (Mucinex Dm Er 600-30 Mg) 1 tab PO BID REPLACED BY [facility] Last Admin: 04/27/20 07:58 Dose: 1 tab Documented by: Ceftriaxone Sodium 1 gm/ (Sodium Chloride) 100 mls @ 200 mls/hr IV Q12H REPLACED BY [facility] Last Admin: 04/27/20 08:02 Dose: 200 mls/hr Documented by: Levofloxacin/Dextrose 500 mg/ (Premix) 100 mls @ 100 mls/hr IV Q24H REPLACED BY [facility] Last Admin: 04/27/20 00:04 Dose: 100 mls/hr Documented by: Insulin Human Lispro (Humalog) 0 unit SUBCUT QIDACANDBED REPLACED BY [facility]; Protocol Last Admin: 04/27/20 08:00 Dose: 4 units Documented by: Insulin Lispro Protam/Lispro Human (Humalog Mix 75-25) 10 unit SUBCUT BIDAC REPLACED BY [facility] Last Admin: 04/27/20 08:00 Dose: 10 units Documented by: Losartan Potassium (Cozaar) 50 mg PO DAILY REPLACED BY [facility] Last Admin: 04/27/20 07:58 Dose: 50 mg Documented by: Magnesium Oxide (Magnesium Oxide) 400 mg PO BID REPLACED BY [facility] Last Admin: 04/27/20 07:59 Dose: 400 mg Documented by: Metformin HCl (Glucophage) 500 mg PO BIDMEALS REPLACED BY [facility] Last Admin: 04/27/20 07:58 Dose: 500 mg Documented by: Metoprolol Succinate (Toprol Xl) 25 mg PO QPM REPLACED BY [facility] Last Admin: 04/26/20 17:07 Dose: 25 mg Documented by: Neomycin/Polymyxin/Bacitracin (Triple Antibiotic Oint) 1 each TOP Q12HR REPLACED BY [facility] Last Admin: 04/27/20 07:59 Dose: 1 each Documented by: Nortriptyline HCl (Nortriptyline) 50 mg PO BEDTIME REPLACED BY [facility] Last Admin: 04/26/20 20:06 Dose: 50 mg Documented by: Nystatin (Nystop) 0 gm TOP Q12H REPLACED BY [facility] Last Admin: 04/27/20 08:02 Dose: 1 applic Documented by: Sodium Chloride (Saline Flush) 10 ml FLUSH ASDIRECTED PRN PRN Reason: Keep Vein Open Last Admin: 04/27/20 08:03 Dose: 10 ml Documented by: Sodium Chloride (Saline Flush) 10 ml FLUSH Q12H REPLACED BY [facility] Last Admin: 04/27/20 00:04 Dose: 10 ml Documented by: Discontinued Medications Acetaminophen (Tylenol) 650 mg PO ONETIME ONE Stop: 04/24/20 18:48 Last Admin: 04/24/20 19:36 Dose: 650 mg Documented by: Albuterol/Ipratropium (Duoneb 3.0-0.5 Mg/3 Ml) 3 ml NEB Q6HRRT REPLACED BY [facility] Last Admin: 04/25/20 02:07 Dose: Not Given Documented by: Fluconazole (Diflucan) 150 mg PO ONETIME ONE Stop: 04/25/20 01:41 Last Admin: 04/25/20 04:13 Dose: 150 mg Documented by: Fluconazole (Diflucan) Confirm Administered Dose 200 mg .ROUTE .STK-MED ONE Stop: 04/25/20 03:52 Last Admin: 04/25/20 04:15 Dose: Not Given Documented by: Furosemide (Lasix) 40 mg IVPUSH Q8H REPLACED BY [facility] Last Admin: 04/25/20 17:09 Dose: Not Given Documented by: Lactated Ringer's (Ringers, Lactated) 1,000 mls @ 999 mls/hr IV .BOLUS ONE Stop: 04/24/20 20:17 Last Admin: 04/24/20 19:36 Dose: 999 mls/hr Documented by: Ceftriaxone Sodium 1 gm/ (Sodium Chloride) 100 mls @ 200 mls/hr IV ONETIME ONE Stop: 04/24/20 20:42 Last Admin: 04/24/20 20:28 Dose: 200 mls/hr Documented by: Insulin Human Lispro (Humalog) 10 unit SUBCUT ONETIME STA Stop: 04/25/20 21:48 Last Admin: 04/25/20 22:08 Dose: 10 units Documented by: Insulin Human Regular (Humulin R) 10 unit IV ONETIME ONE Stop: 04/24/20 20:15 Last Admin: 04/24/20 20:30 Dose: 10 unit Documented by: Insulin Lispro Protam/Lispro Human (Humalog Mix 75-25) 10 unit SUBCUT ONETIME ONE; Protocol Stop: 04/25/20 00:02 Last Admin: 04/25/20 00:40 Dose: 10 unit Documented by: Insulin Lispro Protam/Lispro Human (Humalog Mix 75-25) 10 unit SUBCUT ONETIME ONE; Protocol Stop: 04/25/20 09:43 Last Admin: 04/25/20 10:01 Dose: 10 units Documented by: Magnesium Oxide (Magnesium Oxide) 400 mg PO DAILY REPLACED BY [facility] Metoprolol Tartrate (Lopressor) 2.5 mg IVPUSH ONETIME ONE Stop: 04/24/20 19:43 Last Admin: 04/24/20 20:10 Dose: 2.5 mg Documented by: Metoprolol Tartrate (Lopressor) 25 mg PO ONETIME ONE Stop: 04/24/20 23:18 Last Admin: 04/25/20 00:07 Dose: 25 mg Documented by: Neomycin/Polymyxin/Bacitracin (Triple Antibiotic Oint) 1 each TOP BID REPLACED BY [facility] Last Admin: 04/25/20 12:08 Dose: 1 each Documented by: Potassium Chloride (Klor-Con M20) 20 meq PO TID REPLACED BY [facility] Last Admin: 04/26/20 08:11 Dose: 20 meq Documented by: - Exam General: Alert, Oriented Lungs: Clear to Auscultation, Normal Respiratory Effort Cardiovascular: Regular Rhythm, Tachycardia (Heart rate in the low 100s.). No: Murmurs, Rubs GI/Abdominal Exam: Normal Bowel Sounds, Soft, Non-Tender Extremities: Pedal Edema Skin: Other (3 cm reddened area on the lateral ankle just above the malleolus. Line drawn yesterday with the redness proxy 1 cm farther out.) Sepsis Event Note - Evaluation Sepsis Screening Result: No Definite Risk - Focused Exam Vital Signs: Vital Signs Temp Pulse Resp BP BP BP Pulse Ox 04/27/20 08:00 36.6 C 106 H 16 123/89 98 04/27/20 07:58 123/89 04/27/20 00:00 36.3 C 114 H 18 111/51 L 96 - Problem List & Annotations (1) Diabetes type 2, uncontrolled SNOMED Code(s): 688670908, 576482662 Code(s): E11.65 - TYPE 2 DIABETES MELLITUS WITH HYPERGLYCEMIA Status: Acute Current Visit: Yes Qualifiers: Coma presence: without coma (2) Anemia SNOMED Code(s): 833341979 Code(s): D64.9 - ANEMIA, UNSPECIFIED Status: Acute Priority: Medium Current Visit: Yes Qualifiers: Anemia type: unspecified type Qualified Code(s): D64.9 - Anemia, unspecified Annotation/Comment:: As above. No evidence of acute GI bleed. IV Pepcid given as above. (3) Pneumonia SNOMED Code(s): 567412784 Code(s): J18.9 - PNEUMONIA, UNSPECIFIED ORGANISM Status: Acute Priority: High Current Visit: Yes Onset Date: 04/24/20 Qualifiers: Pneumonia type: due to unspecified organism Laterality: left Lung location: lower lobe of lung Qualified Code(s): J18.9 - Pneumonia, unspecified organism Annotation/Comment:: Bilateral pneumonia especially in the left lower lobe pneumonia by chest x-ray. IV Rocephin therapy initiated in the emergency room with additional IV Lovenox initiated after admission. Attempt to obtain a sputum DEJA, however she only has a mild nonproductive cough at this time. Blood cultures x2 were collected prior to initiation of IV antibiotic therapy as above. COVID-19 specimen collected with results pending. - Problem List Review Problem List Initiated/Reviewed/Updated: Yes - Assessment Assessment:: Pneumonia. Tachycardia Diabetes CHF - Plan Plan:: Continue IV antibiotics. Continue IV Lasix. We will increase her Humulin 75/20 5 to 15 units twice daily. Continue with the sliding scale. Possible discharge to home tomorrow.
[2020-04-27] MEDS: Metoprolol Succinate 25 MG Tab.ER PO SCH (17:21)
[2020-04-27] MEDS: Nortriptyline 25 MG Cap PO SCH (20:26)
[2020-04-28] MEDS ORDERED: Levofloxacin 500 MG Tab PO SCH ×2 (00:15→23:45)
[2020-04-28] MEDS: Albuterol/Ipratropium 4 GM Inhalation Spray INH SCH ×2 (04:20→07:49)
[2020-04-28 07:35] VITALS: PULSE 106
[2020-04-28] MEDS: Insulin Lispro Protamine/Lispro 75-25 100 Units/ML 10 ML Vial SUBCUT SCH (07:40)
[2020-04-28] MEDS: Insulin Lispro 100 Units/ML 3 ML Vial SUBCUT SCH (07:43)
[2020-04-28] MEDS: Dextromethorphan/guaiFENesin 600-30 MG Tab.ER PO SCH (07:47)
[2020-04-28] MEDS: metFORMIN 500 MG Tab PO SCH (07:47)
[2020-04-28] MEDS: Magnesium Oxide 400 MG Tab PO SCH (07:47)
[2020-04-28] MEDS: Gabapentin 100 MG Cap PO SCH (07:47)
[2020-04-28] MEDS: Losartan 50 MG Tab PO SCH (07:47)
[2020-04-28] MEDS: Nystatin Topical Powder 15 GM Bottle TOP SCH (07:48)
[2020-04-28] MEDS: Bacitracin/Neomycin/Polymyxin B Oint 0.9 GM U/D Packet TOP SCH (07:48)
[2020-04-28 07:50] VITALS: BP 116/62
[2020-04-28] MEDS ORDERED: Famotidine 20 MG Tab PO SCH (08:00)
[2020-04-28] MEDS ORDERED: cefTRIAXone 1 GM Vial IM ONE (09:00)
--- NOTE | 2020-04-28 09:19 | PCM.PN ---
- General Info Date of Service: 04/28/20 Admission Dx/Problem (Free Text): 1. Pneumonia 2. Asthma exacerbation 3. Lactic acid elevation 4. CHF 5. Tachycardia Subjective Update: Doing well overall. She denies any shortness of breath. No cough. No fever or chills. No chest pain or tightness. No abdominal pain, nausea or vomiting. - Patient Data Vitals - Most Recent: Last Vital Signs Temp 36.3 C 04/28/20 07:33 Pulse 106 H 04/28/20 07:33 Resp 18 04/28/20 07:33 BP 116/62 04/28/20 07:47 Pulse Ox 96 04/28/20 07:33 Weight - Most Recent: 126.552 kg I&O - Last 24 Hours: Intake & Output 04/27/20 04/28/20 04/28/20 22:59 06:59 14:59 Intake Total 630 200 240 Output Total 550 600 Balance 80 -400 240 Lab Results Last 24 Hours: Laboratory Results - last 24 hr 04/24/20 04/27/20 04/27/20 Range/Units 22:45 11:27 17:02 POC Glucose 195 H 304 H* (65-110) mg/dl COVID-19 PCR Not detected (NOT DETECT) 04/27/20 04/28/20 Range/Units 20:17 07:37 POC Glucose 259 H* 200 H (65-110) mg/dl COVID-19 PCR (NOT DETECT) Edilberto Results Last 24 Hours: Microbiology 04/24/20 19:32 Aerobic Blood Culture - Preliminary Blood - Venous NO GROWTH AFTER 3 DAYS Anaerobic Blood Culture - Preliminary NO GROWTH AFTER 3 DAYS Med Orders - Current: Current Medications Acetaminophen (Tylenol) 650 mg PO Q4H PRN PRN Reason: Pain/Fever Last Admin: 04/25/20 09:14 Dose: 650 mg Documented by: Albuterol (Proair Hfa) 0 gm INH Q2H PRN PRN Reason: Dyspnea Albuterol/Ipratropium (Combivent Respimat) [address] [facility] Last Admin: 04/28/20 07:49 Dose: 2 puff Documented by: Famotidine (Pepcid) [address] [facility] Last Admin: 04/28/20 07:47 Dose: 20 mg Documented by: Gabapentin (Neurontin) [address] [facility] Last Admin: 04/28/20 07:47 Dose: 200 mg Documented by: Guaifenesin/Dextromethorphan (Mucinex Dm Er 600-30 Mg) [address] [facility] Last Admin: 04/28/20 07:47 Dose: 1 tab Documented by: Insulin Human Lispro (Humalog) [address] [facility]; Protocol Last Admin: 04/28/20 07:43 Dose: 4 units Documented by: Insulin Lispro Protam/Lispro Human (Humalog Mix 75-25) [address] [facility] Last Admin: 04/28/20 07:40 Dose: 15 units Documented by: Levofloxacin (Levaquin) [address] [facility] Last Admin: 04/28/20 00:25 Dose: 500 mg Documented by: Losartan Potassium (Cozaar) [address] [facility] Last Admin: 04/28/20 07:47 Dose: 50 mg Documented by: Magnesium Oxide (Magnesium Oxide) [address] [facility] Last Admin: 04/28/20 07:47 Dose: 400 mg Documented by: Metformin HCl (Glucophage) [address] [facility] Last Admin: 04/28/20 07:47 Dose: 500 mg Documented by: Metoprolol Succinate (Toprol Xl) [address] [facility] Last Admin: 04/27/20 17:21 Dose: 25 mg Documented by: Neomycin/Polymyxin/Bacitracin (Triple Antibiotic Oint) [address] [facility] Last Admin: 04/28/20 07:48 Dose: 1 each Documented by: Nortriptyline HCl (Nortriptyline) [address] [facility] Last Admin: 04/27/20 20:26 Dose: 50 mg Documented by: Nystatin (Nystop) [address] [facility] Last Admin: 04/28/20 07:48 Dose: 1 applic Documented by: Sodium Chloride (Saline Flush) 10 ml FLUSH ASDIRECTED PRN PRN Reason: Keep Vein Open Last Admin: 04/27/20 20:21 Dose: 10 ml Documented by: Discontinued Medications Acetaminophen (Tylenol) 650 mg PO ONETIME ONE Stop: 04/24/20 18:48 Last Admin: 04/24/20 19:36 Dose: 650 mg Documented by: Albuterol/Ipratropium (Duoneb 3.0-0.5 Mg/3 Ml) [address] [facility] Last Admin: 04/25/20 02:07 Dose: Not Given Documented by: Ceftriaxone Sodium (Rocephin) 1 gm IM ONETIME ONE Stop: 04/28/20 09:01 Last Admin: 04/28/20 09:02 Dose: 1 gm Documented by: Famotidine (Pepcid) [address] [facility] Last Admin: 04/27/20 12:48 Dose: 20 mg Documented by: Fluconazole (Diflucan) 150 mg PO ONETIME ONE Stop: 04/25/20 01:41 Last Admin: 04/25/20 04:13 Dose: 150 mg Documented by: Fluconazole (Diflucan) Confirm Administered Dose 200 mg .ROUTE .STK-MED ONE Stop: 04/25/20 03:52 Last Admin: 04/25/20 04:15 Dose: Not Given Documented by: Furosemide (Lasix) [address] [facility] Last Admin: 04/25/20 17:09 Dose: Not Given Documented by: Lactated Ringer's (Ringers, Lactated) 1,000 mls @ 999 mls/hr IV .BOLUS ONE Stop: 04/24/20 20:17 Last Admin: 04/24/20 19:36 Dose: 999 mls/hr Documented by: Ceftriaxone Sodium 1 gm/ (Sodium Chloride) 100 mls @ 200 mls/hr IV ONETIME ONE Stop: 04/24/20 20:42 Last Admin: 04/24/20 20:28 Dose: 200 mls/hr Documented by: Ceftriaxone Sodium 1 gm/ (Sodium Chloride) 100 mls @ 200 mls/hr IV Q12H [facility] Last Admin: 04/27/20 20:21 Dose: 200 mls/hr Documented by: Levofloxacin/Dextrose 500 mg/ (Premix) 100 mls @ 100 mls/hr IV Q24H [facility] Last Admin: 04/27/20 00:04 Dose: 100 mls/hr Documented by: Insulin Human Lispro (Humalog) 10 unit SUBCUT ONETIME STA Stop: 04/25/20 21:48 Last Admin: 04/25/20 22:08 Dose: 10 units Documented by: Insulin Human Regular (Humulin R) 10 unit IV ONETIME ONE Stop: 04/24/20 20:15 Last Admin: 04/24/20 20:30 Dose: 10 unit Documented by: Insulin Lispro Protam/Lispro Human (Humalog Mix 75-25) 10 unit SUBCUT ONETIME ONE; Protocol Stop: 04/25/20 00:02 Last Admin: 04/25/20 00:40 Dose: 10 unit Documented by: Insulin Lispro Protam/Lispro Human (Humalog Mix 75-25) [address] [facility] Last Admin: 04/27/20 08:00 Dose: 10 units Documented by: Insulin Lispro Protam/Lispro Human (Humalog Mix 75-25) 10 unit SUBCUT ONETIME ONE; Protocol Stop: 04/25/20 09:43 Last Admin: 04/25/20 10:01 Dose: 10 units Documented by: Levofloxacin (Levaquin) [address] [facility] Lidocaine HCl (Xylocaine-Mpf 1%) Confirm Administered Dose 5 ml .ROUTE .STK-MED ONE Stop: 04/28/20 07:25 Last Admin: 04/28/20 09:04 Dose: Not Given Documented by: Magnesium Oxide (Magnesium Oxide) [address] [facility] Metoprolol Tartrate (Lopressor) 2.5 mg IVPUSH ONETIME ONE Stop: 04/24/20 19:43 Last Admin: 04/24/20 20:10 Dose: 2.5 mg Documented by: Metoprolol Tartrate (Lopressor) 25 mg PO ONETIME ONE Stop: 04/24/20 23:18 Last Admin: 04/25/20 00:07 Dose: 25 mg Documented by: Neomycin/Polymyxin/Bacitracin (Triple Antibiotic Oint) [address] [facility] Last Admin: 04/25/20 12:08 Dose: 1 each Documented by: Potassium Chloride (Klor-Con M20) [address] [facility] Last Admin: 04/26/20 08:11 Dose: 20 meq Documented by: Sodium Chloride (Saline Flush) [address] [facility] Last Admin: 04/27/20 13:00 Dose: 10 ml Documented by: - Exam General: Alert, Oriented Lungs: Clear to Auscultation, Normal Respiratory Effort Cardiovascular: Regular Rhythm, Tachycardia. No: Murmurs, Gallops, Rubs GI/Abdominal Exam: Normal Bowel Sounds, Soft, Non-Tender Sepsis Event Note - Evaluation Sepsis Screening Result: No Definite Risk - Focused Exam Vital Signs: Vital Signs Temp Pulse Resp BP BP Pulse Ox 04/28/20 07:47 116/62 04/28/20 07:33 36.3 C 106 H 18 100/50 L 96 04/28/20 04:00 36.9 C 14 L 18 145/45 H 96 04/27/20 23:31 36.2 C 109 H 20 121/50 L 97 - Problem List & Annotations (1) Diabetes type 2, uncontrolled SNOMED Code(s): 501811377, 406340194 Code(s): E11.65 - TYPE 2 DIABETES MELLITUS WITH HYPERGLYCEMIA Status: Acute Current Visit: Yes Qualifiers: Coma presence: without coma (2) Anemia SNOMED Code(s): 189330500 Code(s): D64.9 - ANEMIA, UNSPECIFIED Status: Acute Priority: Medium Current Visit: Yes Qualifiers: Anemia type: unspecified type Qualified Code(s): D64.9 - Anemia, unspecified Annotation/Comment:: As above. No evidence of acute GI bleed. IV Pepcid given as above. (3) Pneumonia SNOMED Code(s): 888307256 Code(s): J18.9 - PNEUMONIA, UNSPECIFIED ORGANISM Status: Acute Priority: High Current Visit: Yes Onset Date: 04/24/20 Qualifiers: Pneumonia type: due to unspecified organism Laterality: left Lung location: lower lobe of lung Qualified Code(s): J18.9 - Pneumonia, unspecified organism Annotation/Comment:: Bilateral pneumonia especially in the left lower lobe pneumonia by chest x-ray. IV Rocephin therapy initiated in the emergency room with additional IV Lovenox initiated after admission. Attempt to obtain a sputum DEJA, however she only has a mild nonproductive cough at this time. Blood cultures x2 were collected prior to initiation of IV antibiotic therapy as above. COVID-19 specimen collected with results pending. - Problem List Review Problem List Initiated/Reviewed/Updated: Yes - My Orders Last 24 Hours: My Active Orders 04/27/20 17:30 Insulin Lispro Prot/Lispro [HumaLOG Mix 75-25] 15 unit SUBCUT BIDAC 04/27/20 23:58 Communication Order [RC] 04/28/20 00:15 levoFLOXacin [Levaquin] 500 mg PO BEDTIME 04/28/20 08:00 Famotidine [Pepcid] 20 mg PO BID - Assessment Assessment:: Pneumonia. Tachycardia Diabetes CHF - Plan Plan:: Patient is stable. Will discharge to home today. Follow-up with primary provider in 1 week.
--- NOTE | 2020-04-28 09:24 | PCM.DCSUM1 ---
Discharge Summary - Hospital Course Free Text/Narrative:: Patient was admitted April 24 with a diagnosis of of pneumonia, CHF, tachycardia and diabetes. She was treated with IV Rocephin and Levaquin. Her labs normalized and she had minimal cough and no shortness of breath by the day of discharge. She was started on Humulin 75/25 10 units twice daily which was later increased to 15 units twice daily. Tolerated all treatments well. Will discharge to home today with oral Levaquin and Duricef. Insulin 15 units twice daily. Check blood sugars twice daily. Follow-up with primary provider in 1 week. - Discharge Data Discharge Date: 04/28/20 Discharge Disposition: Home, Self-Care 01 Condition: Good - Referral to Home Health Primary Care Physician: Marvin Carr MD - Discharge Diagnosis/Problem(s) (1) Diabetes type 2, uncontrolled SNOMED Code(s): 767981578, 506936245 ICD Code: E11.65 - TYPE 2 DIABETES MELLITUS WITH HYPERGLYCEMIA Status: Acute Current Visit: Yes Qualifiers: Coma presence: without coma (2) Anemia SNOMED Code(s): 534195976 ICD Code: D64.9 - ANEMIA, UNSPECIFIED Status: Acute Priority: Medium Current Visit: Yes Problem Details: As above. No evidence of acute GI bleed. IV Pepcid given as above. Qualifiers: Anemia type: unspecified type Qualified Code(s): D64.9 - Anemia, unspecified (3) Pneumonia SNOMED Code(s): 092594916 ICD Code: J18.9 - PNEUMONIA, UNSPECIFIED ORGANISM Status: Acute Priority: High Current Visit: Yes Onset Date: 04/24/20 Problem Details: Bilateral pneumonia especially in the left lower lobe pneumonia by chest x-ray. IV Ro cephin therapy initiated in the emergency room with additional IV Lovenox initiated after admission. Attempt to obtain a sputum DEJA, however she only has a mild nonproductive cough at this time. Blood cultures x2 were collected prior to initiation of IV antibiotic therapy as above. COVID-19 specimen collected with results pending. Qualifiers: Pneumonia type: due to unspecified organism Laterality: left Lung location: lower lobe of lung Qualified Code(s): J18.9 - Pneumonia, unspecified organism - Patient Instructions Diet: Diabetic Diet Activity: As Tolerated Driving: May Drive Today - Discharge Plan *PRESCRIPTION DRUG MONITORING PROGRAM REVIEWED*: Not Applicable *COPY OF PRESCRIPTION DRUG MONITORING REPORT IN PATIENT DAMARIS: Not Applicable Home Medications: Home Meds Albuterol/Ipratropium [DuoNeb 3.0-0.5 MG/3 ML] 3 ml INH Q4HR PRN 02/01/19 [History] Cetirizine HCl [Zyrtec] 10 mg PO DAILY PRN 02/01/19 [History] Cyclobenzaprine [Flexeril] 10 mg PO TID PRN 02/01/19 [History] Gabapentin [Neurontin] 200 mg PO DAILY 02/01/19 [History] Losartan Potassium [Cozaar] 50 mg PO DAILY 02/01/19 [History] Magnesium Glycinate [Mag Glycinate] 100 mg PO BID #60 tablet 02/01/19 [Rx] Nortriptyline HCl [Pamelor] 50 mg PO BEDTIME 02/01/19 [History] Omeprazole 20 mg PO DAILY 02/01/19 [History] Vitamin D3/Vitamin K2 (Mk4) [K2 Plus D3 Tablet] 1 each PO DAILY #30 tablet 02/01/19 [Rx] busPIRone [Buspar] 5 mg PO ASDIRECTED PRN 02/01/19 [History] glipiZIDE [Glipizide ER] 5 mg PO DAILY 02/01/19 [History] SUMAtriptan succinate [Imitrex] 50 mg PO BID PRN 10/29/19 [History] Cefadroxil [Duricef] 500 mg PO Q12HR 7 Days #14 cap 04/28/20 [Rx] Furosemide [Lasix] 40 mg PO DAILY 7 Days #7 tab 04/28/20 [Rx] Insulin NPH/Insulin Reg,Human [HumuLIN 70-30] 15 units SQ BID 30 Days unit 04/28/20 [Rx] Levofloxacin 500 mg PO DAILY 7 Days #7 tablet 04/28/20 [Rx] Patient Handouts: Insulin Storage and Care, Insulin Treatment for Diabetes Mellitus, Insulin Injection Instructions, Using Insulin Pens, Adult Forms: ED Department Discharge Referrals: Marvin Carr MD [Primary Care Provider] - - Discharge Summary/Plan Comment DC Time >30 min.: Yes - Review of Systems General: Denies: Fever, Chills Pulmonary: Denies: Shortness of Breath, Pleuritic Chest Pain, Cough, Wheezing Cardiovascular: Denies: Chest Pain, Palpitations Gastrointestinal: Denies: Abdominal Pain, Nausea, Vomiting - Patient Data Vitals - Most Recent: Last Vital Signs Temp 36.3 C 04/28/20 07:33 Pulse 106 H 04/28/20 07:33 Resp 18 04/28/20 07:33 BP 116/62 04/28/20 07:47 Pulse Ox 96 04/28/20 07:33 Weight - Most Recent: 126.552 kg I&O - Last 24 hours: Intake & Output 04/27/20 04/28/20 04/28/20 22:59 06:59 14:59 Intake Total 630 200 240 Output Total 550 600 Balance 80 -400 240 Lab Results - Last 24 hrs: Laboratory Results - last 24 hr 04/24/20 04/27/20 04/27/20 Range/Units 22:45 11:27 17:02 POC Glucose 195 H 304 H* (65-110) mg/dl COVID-19 PCR Not detected (NOT DETECT) 04/27/20 04/28/20 Range/Units 20:17 07:37 POC Glucose 259 H* 200 H (65-110) mg/dl COVID-19 PCR (NOT DETECT) DELANO Results - Last 24 hrs: Microbiology 04/24/20 19:32 Aerobic Blood Culture - Preliminary Blood - Venous NO GROWTH AFTER 3 DAYS Anaerobic Blood Culture - Preliminary NO GROWTH AFTER 3 DAYS Med Orders - Current: Current Medications Acetaminophen (Tylenol) 650 mg PO Q4H PRN PRN Reason: Pain/Fever Last Admin: 04/25/20 09:14 Dose: 650 mg Documented by: Albuterol (Proair Hfa) 0 gm INH Q2H PRN PRN Reason: Dyspnea Albuterol/Ipratropium (Combivent Respimat) 0 gm INH Q4H [facility] Last Admin: 04/28/20 07:49 Dose: 2 puff Documented by: Famotidine (Pepcid) 20 mg PO BID [facility] Last Admin: 04/28/20 07:47 Dose: 20 mg Documented by: Gabapentin (Neurontin) 200 mg PO DAILY [facility] Last Admin: 04/28/20 07:47 Dose: 200 mg Documented by: Guaifenesin/Dextromethorphan (Mucinex Dm Er 600-30 Mg) 1 tab PO BID [facility] Last Admin: 04/28/20 07:47 Dose: 1 tab Documented by: Insulin Human Lispro (Humalog) 0 unit SUBCUT QIDACANDBED [facility]; Protocol Last Admin: 04/28/20 07:43 Dose: 4 units Documented by: Insulin Lispro Protam/Lispro Human (Humalog Mix 75-25) 15 unit SUBCUT BIDAC [facility] Last Admin: 04/28/20 07:40 Dose: 15 units Documented by: Levofloxacin (Levaquin) 500 mg PO BEDTIME [facility] Last Admin: 04/28/20 00:25 Dose: 500 mg Documented by: Losartan Potassium (Cozaar) 50 mg PO DAILY [facility] Last Admin: 04/28/20 07:47 Dose: 50 mg Documented by: Magnesium Oxide (Magnesium Oxide) 400 mg PO BID [facility] Last Admin: 04/28/20 07:47 Dose: 400 mg Documented by: Metformin HCl (Glucophage) 500 mg PO BIDMEALS [facility] Last Admin: 04/28/20 07:47 Dose: 500 mg Documented by: Metoprolol Succinate (Toprol Xl) 25 mg PO QPM [facility] Last Admin: 04/27/20 17:21 Dose: 25 mg Documented by: Neomycin/Polymyxin/Bacitracin (Triple Antibiotic Oint) 1 each TOP Q12HR [facility] Last Admin: 04/28/20 07:48 Dose: 1 each Documented by: Nortriptyline HCl (Nortriptyline) 50 mg PO BEDTIME [facility] Last Admin: 04/27/20 20:26 Dose: 50 mg Documented by: Nystatin (Nystop) 0 gm TOP Q12H [facility] Last Admin: 04/28/20 07:48 Dose: 1 applic Documented by: Sodium Chloride (Saline Flush) 10 ml FLUSH ASDIRECTED PRN PRN Reason: Keep Vein Open Last Admin: 04/27/20 20:21 Dose: 10 ml Documented by: Discontinued Medications Acetaminophen (Tylenol) 650 mg PO ONETIME ONE Stop: 04/24/20 18:48 Last Admin: 04/24/20 19:36 Dose: 650 mg Documented by: Albuterol/Ipratropium (Duoneb 3.0-0.5 Mg/3 Ml) 3 ml NEB Q6HRRT [facility] Last Admin: 04/25/20 02:07 Dose: Not Given Documented by: Ceftriaxone Sodium (Rocephin) 1 gm IM ONETIME ONE Stop: 04/28/20 09:01 Last Admin: 04/28/20 09:02 Dose: 1 gm Documented by: Famotidine (Pepcid) 20 mg IVPUSH Q12H [facility] Last Admin: 04/27/20 12:48 Dose: 20 mg Documented by: Fluconazole (Diflucan) 150 mg PO ONETIME ONE Stop: 04/25/20 01:41 Last Admin: 04/25/20 04:13 Dose: 150 mg Documented by: Fluconazole (Diflucan) Confirm Administered Dose 200 mg .ROUTE .STK-MED ONE Stop: 04/25/20 03:52 Last Admin: 04/25/20 04:15 Dose: Not Given Documented by: Furosemide (Lasix) 40 mg IVPUSH Q8H [facility] Last Admin: 04/25/20 17:09 Dose: Not Given Documented by: Lactated Ringer's (Ringers, Lactated) 1,000 mls @ 999 mls/hr IV .BOLUS ONE Stop: 04/24/20 20:17 Last Admin: 04/24/20 19:36 Dose: 999 mls/hr Documented by: Ceftriaxone Sodium 1 gm/ (Sodium Chloride) 100 mls @ 200 mls/hr IV ONETIME ONE Stop: 04/24/20 20:42 Last Admin: 04/24/20 20:28 Dose: 200 mls/hr Documented by: Ceftriaxone Sodium 1 gm/ (Sodium Chloride) 100 mls @ 200 mls/hr IV Q12H [facility] Last Admin: 04/27/20 20:21 Dose: 200 mls/hr Documented by: Levofloxacin/Dextrose 500 mg/ (Premix) 100 mls @ 100 mls/hr IV Q24H [facility] Last Admin: 04/27/20 00:04 Dose: 100 mls/hr Documented by: Insulin Human Lispro (Humalog) 10 unit SUBCUT ONETIME STA Stop: 04/25/20 21:48 Last Admin: 04/25/20 22:08 Dose: 10 units Documented by: Insulin Human Regular (Humulin R) 10 unit IV ONETIME ONE Stop: 04/24/20 20:15 Last Admin: 04/24/20 20:30 Dose: 10 unit Documented by: Insulin Lispro Protam/Lispro Human (Humalog Mix 75-25) 10 unit SUBCUT ONETIME ONE; Protocol Stop: 04/25/20 00:02 Last Admin: 04/25/20 00:40 Dose: 10 unit Documented by: Insulin Lispro Protam/Lispro Human (Humalog Mix 75-25) 10 unit SUBCUT BIDAC [facility] Last Admin: 04/27/20 08:00 Dose: 10 units Documented by: Insulin Lispro Protam/Lispro Human (Humalog Mix 75-25) 10 unit SUBCUT ONETIME ONE; Protocol Stop: 04/25/20 09:43 Last Admin: 04/25/20 10:01 Dose: 10 units Documented by: Levofloxacin (Levaquin) 500 mg PO BEDTIME [facility] Lidocaine HCl (Xylocaine-Mpf 1%) Confirm Administered Dose 5 ml .ROUTE .STK-MED ONE Stop: 04/28/20 07:25 Last Admin: 04/28/20 09:04 Dose: Not Given Documented by: Magnesium Oxide (Magnesium Oxide) 400 mg PO DAILY [facility] Metoprolol Tartrate (Lopressor) 2.5 mg IVPUSH ONETIME ONE Stop: 04/24/20 19:43 Last Admin: 04/24/20 20:10 Dose: 2.5 mg Documented by: Metoprolol Tartrate (Lopressor) 25 mg PO ONETIME ONE Stop: 04/24/20 23:18 Last Admin: 04/25/20 00:07 Dose: 25 mg Documented by: Neomycin/Polymyxin/Bacitracin (Triple Antibiotic Oint) 1 each TOP BID [facility] Last Admin: 04/25/20 12:08 Dose: 1 each Documented by: Potassium Chloride (Klor-Con M20) 20 meq PO TID [facility] Last Admin: 04/26/20 08:11 Dose: 20 meq Documented by: Sodium Chloride (Saline Flush) 10 ml FLUSH Q12H [facility] Last Admin: 04/27/20 13:00 Dose: 10 ml Documented by: - Exam General: Reports: Alert, Oriented Lungs: Reports: Clear to Auscultation, Normal Respiratory Effort Cardiovascular: Reports: Regular Rhythm, Tachycardia. Denies: Murmurs, Gallops, Rubs GI/Abdominal Exam: Normal Bowel Sounds, Soft, Non-Tender Skin: Reports: Warm, Dry Neurological: Reports: No New Focal Deficit Psy/Mental Status: Reports: Alert, Normal Affect, Normal Mood
[2020-04-28] MEDS ORDERED: Levofloxacin 500 MG Tab PO ONE (09:30)
== END 2020-04-28 11:57 | disposition home or self-care (01) | DRG 291 ==
LOC: LL.ED 18:26 → UNDOADMIN 22:57 → LL.MS 22:57
PROVIDERS: ADMIT Family Medicine; ATTEND Family Medicine
DX: I11.0 Hypertensive heart disease with heart failure (principal); J18.9 Pneumonia, unspecified organism; R00.0 Tachycardia, unspecified; E87.1 Hypo-osmolality and hyponatremia; E88.09 Other disorders of plasma-protein metabolism, not elsewhere classified; F41.8 Other specified anxiety disorders; E80.0 Hereditary erythropoietic porphyria; I10 Essential (primary) hypertension; E87.2 Acidosis; N30.00 Acute cystitis without hematuria; E11.9 Type 2 diabetes mellitus without complications; J45.901 Unspecified asthma with (acute) exacerbation; E11.65 Type 2 diabetes mellitus with hyperglycemia; I50.9 Heart failure, unspecified; D64.9 Anemia, unspecified; Z20.828 Contact with and (suspected) exposure to other viral communicable diseases; H54.7 Unspecified visual loss; H91.90 Unspecified hearing loss, unspecified ear; J30.9 Allergic rhinitis, unspecified; Z88.6 Allergy status to analgesic agent; H40.9 Unspecified glaucoma; H35.30 Unspecified macular degeneration; H91.91 Unspecified hearing loss, right ear; Z79.84 Long term (current) use of oral hypoglycemic drugs; I89.0 Lymphedema, not elsewhere classified; K59.09 Other constipation; K52.9 Noninfective gastroenteritis and colitis, unspecified; K21.9 Gastro-esophageal reflux disease without esophagitis; E80.4 Gilbert syndrome; R32 Unspecified urinary incontinence; M19.90 Unspecified osteoarthritis, unspecified site; G89.29 Other chronic pain; M54.9 Dorsalgia, unspecified; G43.909 Migraine, unspecified, not intractable, without status migrainosus; E11.42 Type 2 diabetes mellitus with diabetic polyneuropathy; F41.9 Anxiety disorder, unspecified; F32.9 Major depressive disorder, single episode, unspecified; F43.10 Post-traumatic stress disorder, unspecified; E87.6 Hypokalemia; B37.3 Candidiasis of vulva and vagina; E83.42 Hypomagnesemia; E66.9 Obesity, unspecified; J45.20 Mild intermittent asthma, uncomplicated; E78.5 Hyperlipidemia, unspecified; D69.6 Thrombocytopenia, unspecified; Z90.49 Acquired absence of other specified parts of digestive tract; Z90.89 Acquired absence of other organs; Z98.51 Tubal ligation status; Z79.899 Other long term (current) drug therapy; Z79.4 Long term (current) use of insulin; Z91.030 Bee allergy status; Z88.5 Allergy status to narcotic agent; Z88.1 Allergy status to other antibiotic agents; Z91.018 Allergy to other foods; Z88.8 Allergy status to other drugs, medicaments and biological substances; Z87.01 Personal history of pneumonia (recurrent); Z87.440 Personal history of urinary (tract) infections
CPT/HCPCS: 36415; 71045; 80053; 82009; 82550; 82553; 83605; 83735; 83880; 84443; 84484; 85025; 85610; 85730; 87040; 87081; 87430; 87635; 87804 ×2; 96361; 96365; 96375; 99285; A9270; J0696; J1815; J3490; J7050; J7120; 51702; 71046; 80048; 80061; 81001; 82607; 82947; 82962; 83036; 83540; 83550; 84100; 87086; 93005; 94640; J1940; J1956; U0002

== ENCOUNTER 2020-05-19 16:54 | Emergency (ER) | payer MEDICAID, OTHER ==
[2020-05-19 17:47] LABS: CHLORIDE,CL 104 mmol/L (98-107); SODIUM,NA 139 mmol/L (136-145)
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
== END 2020-05-19 19:45 | disposition home or self-care (01) ==
LOC: LL.ED 16:54
DX: J18.9 Pneumonia, unspecified organism (principal); I10 Essential (primary) hypertension; E78.00 Pure hypercholesterolemia, unspecified; J45.909 Unspecified asthma, uncomplicated; K21.9 Gastro-esophageal reflux disease without esophagitis; M19.90 Unspecified osteoarthritis, unspecified site; E11.9 Type 2 diabetes mellitus without complications; Z91.030 Bee allergy status; Z88.8 Allergy status to other drugs, medicaments and biological substances; Z88.5 Allergy status to narcotic agent; Z88.1 Allergy status to other antibiotic agents; Z91.040 Latex allergy status; Z91.018 Allergy to other foods; Z79.899 Other long term (current) drug therapy; Z79.84 Long term (current) use of oral hypoglycemic drugs; Z20.828 Contact with and (suspected) exposure to other viral communicable diseases
CPT/HCPCS: 36415; 71045; 80053; 85025; 99283; 99285-25; U0002

== ENCOUNTER 2020-06-14 06:21 | Emergency (ER) | payer MEDICAID, OTHER ==
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
== END 2020-06-14 09:15 | disposition home or self-care (01) ==
LOC: LL.ED 06:21
DX: J06.9 Acute upper respiratory infection, unspecified (principal); I10 Essential (primary) hypertension; J45.909 Unspecified asthma, uncomplicated; K21.9 Gastro-esophageal reflux disease without esophagitis; G43.909 Migraine, unspecified, not intractable, without status migrainosus; E11.42 Type 2 diabetes mellitus with diabetic polyneuropathy; F41.9 Anxiety disorder, unspecified; F32.9 Major depressive disorder, single episode, unspecified; Z90.49 Acquired absence of other specified parts of digestive tract; Z91.030 Bee allergy status; Z88.5 Allergy status to narcotic agent; Z88.1 Allergy status to other antibiotic agents; Z88.6 Allergy status to analgesic agent; Z91.040 Latex allergy status; Z91.018 Allergy to other foods; Z79.899 Other long term (current) drug therapy; Z98.51 Tubal ligation status; Z79.84 Long term (current) use of oral hypoglycemic drugs
CPT/HCPCS: 36415; 71045; 85025; 99284-25; U0002

== ENCOUNTER 2020-08-01 14:30 | Inpatient (IN) | payer MEDICAID ==
[2020-08-01 15:31] LABS: CHLORIDE,CL 100 mmol/L (98-107); SODIUM,NA 136 mmol/L (136-145)
[2020-08-01] MEDS ORDERED: Magnesium Sulfate/Water 100 ML IV ONE (17:01)
[2020-08-01] MEDS ORDERED: Glucagon,Human Recombinant 1 MG Vial IM PRN (17:06)
[2020-08-01] MEDS ORDERED: 50% Dextrose in Water 50 ML Syringe IV PRN (17:06)
[2020-08-01] MEDS ORDERED: busPIRone 15 MG Tab PO PRN (17:09)
[2020-08-01] MEDS ORDERED: SUMAtriptan 50 MG Tab PO PRN (17:09)
[2020-08-01] MEDS ORDERED: Cetirizine 10 MG Tab PO SCH (17:09)
[2020-08-01] MEDS ORDERED: Albuterol/Ipratropium 3.0-0.5 MG/3 ML Neb Soln INH PRN (17:09)
[2020-08-01] MEDS: Pantoprazole 40 MG Vial IVPUSH SCH (19:52)
[2020-08-01] MEDS: Sodium Chloride 0.9% 10 ML Syringe FLUSH PRN (19:52)
[2020-08-01] MEDS: Furosemide 40 MG/4 ML VIAL IVPUSH SCH (19:52)
[2020-08-01] MEDS: Insulin Lispro 100 Units/ML 3 ML Vial SUBCUT SCH (20:00)
[2020-08-01] MEDS: Nortriptyline 25 MG Cap PO SCH (22:38)
[2020-08-02] MEDS ORDERED: [UNRECOGNIZED DRUG - OTHER] PO SCH (08:00)
[2020-08-02] MEDS ORDERED: VITAMIN K2 PO SCH (08:00)
[2020-08-02] MEDS ORDERED: VITAMIN D3 PO SCH (08:00)
[2020-08-02] MEDS: Sodium Chloride 0.9% 10 ML Syringe FLUSH PRN (08:27)
[2020-08-02] MEDS: Nystatin Topical Powder 15 GM Bottle TOP SCH ×2 (08:28→17:42)
[2020-08-02] MEDS: Cetirizine 10 MG Tab PO SCH (08:30)
[2020-08-02] MEDS: Furosemide 40 MG/4 ML VIAL IVPUSH SCH (08:30)
[2020-08-02] MEDS: Pantoprazole 40 MG Vial IVPUSH SCH (08:30)
[2020-08-02] MEDS: glipiZIDE 5 MG Tab.ER PO SCH (08:31)
[2020-08-02] MEDS: Insulin Lispro 100 Units/ML 3 ML Vial SUBCUT SCH ×2 (08:31→17:19)
[2020-08-02 09:20] LABS: CHLORIDE,CL 100 mmol/L (98-107); SODIUM,NA 136 mmol/L (136-145)
--- NOTE | 2020-08-02 13:47 | PCM.PN ---
- General Info Date of Service: 08/02/20 Admission Dx/Problem (Free Text): CHF Shortness of breath Diabetes Anemia Possible GI bleed Subjective Update: Overall doing well. She has a persistent dry cough which at times makes her choke. No productive cough. No fever or chills. She denies any shortness of breath today. No abdominal pain. No nausea or vomiting. No fever or chills. When asked specifically, she states that other than the dry cough she does feel like she is at her baseline. Functional Status: Reports: Pain Controlled - Review of Systems General: Denies: Fever, Weakness Pulmonary: Reports: Cough. Denies: Shortness of Breath, Sputum, Hemoptysis Cardiovascular: Reports: Dyspnea on Exertion. Denies: Chest Pain, Palpitations Gastrointestinal: Denies: Abdominal Pain, Diarrhea, Nausea, Vomiting Skin: Reports: No Symptoms Neurological: Reports: Numbness. Denies: Confusion, Dizziness, Headache, Tingling Psychiatric: Denies: Confusion, Depression, Anxiety - Patient Data Vitals - Most Recent: Last Vital Signs Temp 36.6 C 08/02/20 13:00 Pulse 106 H 08/02/20 13:00 Resp 18 08/02/20 13:00 BP 108/57 L 08/02/20 13:00 Pulse Ox 92 L 08/02/20 13:00 Weight - Most Recent: 135.579 kg I&O - Last 24 Hours: Intake & Output 08/01/20 08/02/20 08/02/20 22:59 06:59 14:59 Output Total 1000 300 Balance -1000 -300 Lab Results Last 24 Hours: Laboratory Results - last 24 hr 08/01/20 08/01/20 08/01/20 Range/Units 14:39 14:39 14:39 WBC 3.2 L (4.0-10.2) K/uL RBC 3.09 L (3.77-5.09) M/uL Hgb 8.5 L (11.7-15.5) g/dL Hct 29.4 L (34.0-46.0) % MCV 95.1 (84.0-98.0) fL MCH 27.5 L (28.2-33.3) pg MCHC 28.9 L (31.7-36.0) g/dL RDW 18.7 H (11.2-14.1) % Plt Count 79 L (150-350) K/uL MPV 12.20 H (7.00-11.50) fL Neut % (Auto) (45.0-80.0) % Lymph % (Auto) (10.0-50.0) % [place] % (Auto) (2.0-14.0) % Eos % (Auto) (0.0-5.0) % Baso % (Auto) (0.0-2.0) % Neut # (Auto) (1.40-7.00) K/uL Lymph # (Auto) (0.50-3.50) K/uL [place] # (Auto) (0.00-1.00) K/uL Eos # (Auto) (0.00-0.50) K/uL Baso # (Auto) (0.00-0.20) K/uL Sodium 136 (136-145) mmol/L Potassium 3.8 (3.5-5.1) mmol/L Chloride 100 (98-107) mmol/L Carbon Dioxide 28.6 (21.0-32.0) mmol/L BUN 7 (7-18) mg/dL Creatinine 0.89 (0.51-1.17) mg/dL Est Cr Clr Drug Dosing TNP Estimated GFR (MDRD) > 60 mL/min Glucose 337 H (74-106) mg/dL POC Glucose (65-110) mg/dl Calcium 8.8 (8.5-10.1) mg/dL Magnesium 1.5 L (1.8-2.4) mg/dL Total Bilirubin 2.5 H (0.2-1.0) mg/dL AST 25 (15-37) U/L ALT 10 L (12-78) U/L Alkaline Phosphatase 110 (46-116) IU/L Troponin I 0.012 (0.000-0.056) ng/mL NT-Pro-B Natriuret Pep 1175 H (0-125) pg/mL Total Protein 7.0 (6.4-8.2) g/dL Albumin 2.5 L (3.4-5.0) g/dL SARS-CoV-2 RNA ([facility]) (NEGATIVE) 08/01/20 08/01/20 08/01/20 Range/Units 14:50 19:49 22:10 WBC (4.0-10.2) K/uL RBC (3.77-5.09) M/uL Hgb 9.1 L (11.7-15.5) g/dL Hct (34.0-46.0) % MCV (84.0-98.0) fL MCH (28.2-33.3) pg MCHC (31.7-36.0) g/dL RDW (11.2-14.1) % Plt Count (150-350) K/uL MPV (7.00-11.50) fL Neut % (Auto) (45.0-80.0) % Lymph % (Auto) (10.0-50.0) % [place] % (Auto) (2.0-14.0) % Eos % (Auto) (0.0-5.0) % Baso % (Auto) (0.0-2.0) % Neut # (Auto) (1.40-7.00) K/uL Lymph # (Auto) (0.50-3.50) K/uL [place] # (Auto) (0.00-1.00) K/uL Eos # (Auto) (0.00-0.50) K/uL Baso # (Auto) (0.00-0.20) K/uL Sodium (136-145) mmol/L Potassium (3.5-5.1) mmol/L Chloride (98-107) mmol/L Carbon Dioxide (21.0-32.0) mmol/L BUN (7-18) mg/dL Creatinine (0.51-1.17) mg/dL Est Cr Clr Drug Dosing Estimated GFR (MDRD) mL/min Glucose (74-106) mg/dL POC Glucose 275 H* (65-110) mg/dl Calcium (8.5-10.1) mg/dL Magnesium (1.8-2.4) mg/dL Total Bilirubin (0.2-1.0) mg/dL AST (15-37) U/L ALT (12-78) U/L Alkaline Phosphatase (46-116) IU/L Troponin I (0.000-0.056) ng/mL NT-Pro-B Natriuret Pep (0-125) pg/mL Total Protein (6.4-8.2) g/dL Albumin (3.4-5.0) g/dL SARS-CoV-2 RNA ([facility]) Negative (NEGATIVE) 08/01/20 08/02/20 08/02/20 Range/Units 22:10 07:55 07:55 WBC 3.8 L (4.0-10.2) K/uL RBC 3.05 L (3.77-5.09) M/uL Hgb 8.3 L (11.7-15.5) g/dL Hct 28.6 L (34.0-46.0) % MCV 93.8 (84.0-98.0) fL MCH 27.2 L (28.2-33.3) pg MCHC 29.0 L (31.7-36.0) g/dL RDW 18.8 H (11.2-14.1) % Plt Count 85 L (150-350) K/uL MPV (7.00-11.50) fL Neut % (Auto) 53.1 (45.0-80.0) % Lymph % (Auto) 28.3 (10.0-50.0) % [place] % (Auto) 15.5 H (2.0-14.0) % Eos % (Auto) 2.1 (0.0-5.0) % Baso % (Auto) 1.0 (0.0-2.0) % Neut # (Auto) 2.02 (1.40-7.00) K/uL Lymph # (Auto) 1.08 (0.50-3.50) K/uL [place] # (Auto) 0.59 (0.00-1.00) K/uL Eos # (Auto) 0.08 (0.00-0.50) K/uL Baso # (Auto) 0.04 (0.00-0.20) K/uL Sodium 136 (136-145) mmol/L Potassium 3.5 (3.5-5.1) mmol/L Chloride 100 (98-107) mmol/L Carbon Dioxide 29.5 (21.0-32.0) mmol/L BUN 7 (7-18) mg/dL Creatinine 0.93 (0.51-1.17) mg/dL Est Cr Clr Drug Dosing 55.55 Estimated GFR (MDRD) > 60 mL/min Glucose 250 H (74-106) mg/dL POC Glucose (65-110) mg/dl Calcium 8.6 (8.5-10.1) mg/dL Magnesium 2.0 (1.8-2.4) mg/dL Total Bilirubin 2.6 H (0.2-1.0) mg/dL AST 27 (15-37) U/L ALT 12 (12-78) U/L Alkaline Phosphatase 105 (46-116) IU/L Troponin I 0.003 0.014 (0.000-0.056) ng/mL NT-Pro-B Natriuret Pep (0-125) pg/mL Total Protein 6.8 (6.4-8.2) g/dL Albumin 2.5 L (3.4-5.0) g/dL SARS-CoV-2 RNA ([facility]) (NEGATIVE) 08/02/20 Range/Units 07:59 WBC (4.0-10.2) K/uL RBC (3.77-5.09) M/uL Hgb (11.7-15.5) g/dL Hct (34.0-46.0) % MCV (84.0-98.0) fL MCH (28.2-33.3) pg MCHC (31.7-36.0) g/dL RDW (11.2-14.1) % Plt Count (150-350) K/uL MPV (7.00-11.50) fL Neut % (Auto) (45.0-80.0) % Lymph % (Auto) (10.0-50.0) % [place] % (Auto) (2.0-14.0) % Eos % (Auto) (0.0-5.0) % Baso % (Auto) (0.0-2.0) % Neut # (Auto) (1.40-7.00) K/uL Lymph # (Auto) (0.50-3.50) K/uL [place] # (Auto) (0.00-1.00) K/uL Eos # (Auto) (0.00-0.50) K/uL Baso # (Auto) (0.00-0.20) K/uL Sodium (136-145) mmol/L Potassium (3.5-5.1) mmol/L Chloride (98-107) mmol/L Carbon Dioxide (21.0-32.0) mmol/L BUN (7-18) mg/dL Creatinine (0.51-1.17) mg/dL Est Cr Clr Drug Dosing Estimated GFR (MDRD) mL/min Glucose (74-106) mg/dL POC Glucose 237 H (65-110) mg/dl Calcium (8.5-10.1) mg/dL Magnesium (1.8-2.4) mg/dL Total Bilirubin (0.2-1.0) mg/dL AST (15-37) U/L ALT (12-78) U/L Alkaline Phosphatase (46-116) IU/L Troponin I (0.000-0.056) ng/mL NT-Pro-B Natriuret Pep (0-125) pg/mL Total Protein (6.4-8.2) g/dL Albumin (3.4-5.0) g/dL SARS-CoV-2 RNA ([facility]O) (NEGATIVE) Edilberto Results Last 24 Hours: Microbiology 08/02/20 10:30 Stool Occult Blood (EDILBERTO) - Final Stool / Feces NEGATIVE OCCULT BLOOD REFERENCE RANGE: NEGATIVE Med Orders - Current: Current Medications Albuterol/Ipratropium (Duoneb 3.0-0.5 Mg/3 Ml) 3 ml INH Q4HR PRN PRN Reason: Shortness of Breath Benzonatate (Tessalon Perles) 100 mg PO TID PRN PRN Reason: Cough Buspirone HCl (Buspar) 5 mg PO BID PRN PRN Reason: Anxiety Cetirizine HCl (Zyrtec) 10 mg PO DAILY [facility] Last Admin: 08/02/20 08:30 Dose: 10 mg Documented by: Dextrose/Water (Dextrose 50% In Water) 50 ml IV ASDIRECTED PRN PRN Reason: Hypoglycemia Furosemide (Lasix) 40 mg IVPUSH DAILY [facility] Last Admin: 08/02/20 08:30 Dose: 40 mg Documented by: Glipizide (Glucotrol Xl) 10 mg PO DAILY [facility] Last Admin: 08/02/20 08:31 Dose: 10 mg Documented by: Glucagon (Glucagen) 1 mg IM ASDIRECTED PRN PRN Reason: Hypoglycemia Insulin Human Lispro (Humalog) 0 unit SUBCUT BIDAC [facility]; Protocol Last Admin: 08/02/20 08:31 Dose: 6 units Documented by: Nortriptyline HCl (Nortriptyline) 50 mg PO BEDTIME [facility] Last Admin: 08/01/20 22:38 Dose: 50 mg Documented by: Nystatin (Nystop) 1 gm TOP BID [facility] Last Admin: 08/02/20 08:28 Dose: 1 each Documented by: Pantoprazole Sodium (Protonix Iv) 40 mg IVPUSH DAILY [facility] Last Admin: 08/02/20 08:30 Dose: 40 mg Documented by: Sodium Chloride (Saline Flush) 10 ml FLUSH ASDIRECTED PRN PRN Reason: Keep Vein Open Last Admin: 08/02/20 08:27 Dose: 10 ml Documented by: Sumatriptan Succinate (Imitrex) 50 mg PO BID PRN PRN Reason: Headache Temazepam (Restoril) 15 mg PO BEDTIME PRN PRN Reason: insomnia Discontinued Medications Cetirizine HCl (Zyrtec) 10 mg PO DAILY [facility] Last Admin: 08/02/20 01:57 Dose: Not Given Documented by: Magnesium Sulfate (Magnesium Sulfate In Water Premix) 100 mls @ 25 mls/hr IV ONETIME ONE Stop: 08/01/20 21:00 Last Admin: 08/01/20 19:53 Dose: 25 mls/hr Documented by: - Exam General: Alert, Oriented Lungs: Normal Respiratory Effort, Crackles (Few crackles at the bases bilaterally. Occasional expiratory wheeze.) Cardiovascular: Regular Rate, Regular Rhythm. No: No Murmurs GI/Abdominal Exam: Normal Bowel Sounds, Soft, Non-Tender Extremities: Pedal Edema (1+ pedal edema bilaterally. No redness or warmth.) Skin: Warm, Dry Sepsis Event Note - Evaluation Sepsis Screening Result: No Definite Risk - Focused Exam Vital Signs: Vital Signs Temp Pulse Resp BP Pulse Ox 08/02/20 13:00 36.6 C 106 H 18 108/57 L 92 L 08/02/20 09:00 36.5 C 107 H 18 108/57 L 90 L 08/02/20 05:00 37.2 C 109 H 18 134/73 93 L - Problem List & Annotations (1) Anemia SNOMED Code(s): 017885054 Code(s): D64.9 - ANEMIA, UNSPECIFIED Status: Acute Priority: Medium Current Visit: No Annotation/Comment:: Stool was negative for blood. No indication of GI bleed. She does have anemia but has on her last several visits and no indication of acute blood loss. We will stop the IV Pepcid. (2) CHF (congestive heart failure) SNOMED Code(s): 29470290 Code(s): I50.9 - HEART FAILURE, UNSPECIFIED Status: Acute Priority: High Current Visit: No Qualifiers: Annotation/Comment:: BNP was elevated so we will continue with the diuresis with Lasix. (3) Diabetes type 2, uncontrolled SNOMED Code(s): 886158314, 325144128 Code(s): E11.65 - TYPE 2 DIABETES MELLITUS WITH HYPERGLYCEMIA Status: Acute Current Visit: No Annotation/Comment:: Continue of frequent blood sugar checks and Humalog as needed. - Problem List Review Problem List Initiated/Reviewed/Updated: Yes - My Orders Last 24 Hours: My Active Orders 08/02/20 10:48 OCCULT BLOOD DIAGNOSTIC [OP] Routine - Plan Plan:: Continue with the diuresis. Monitor blood sugars and give insulin as needed. Possible discharge 1 to 2 days.
[2020-08-02] MEDS: Nortriptyline 25 MG Cap PO SCH (20:44)
[2020-08-02] MEDS: Benzonatate 100 MG Cap PO PRN (20:44)
[2020-08-02] MEDS: Temazepam 15 MG Cap PO PRN (20:44)
[2020-08-03] MEDS: Cetirizine 10 MG Tab PO SCH (07:38)
[2020-08-03] MEDS: glipiZIDE 5 MG Tab.ER PO SCH (07:38)
[2020-08-03] MEDS: Sodium Chloride 0.9% 10 ML Syringe FLUSH PRN (07:39)
[2020-08-03] MEDS: Furosemide 40 MG/4 ML VIAL IVPUSH SCH (07:39)
[2020-08-03] MEDS: Insulin Lispro 100 Units/ML 3 ML Vial SUBCUT SCH ×2 (07:44→17:25)
[2020-08-03] MEDS: Nystatin Topical Powder 15 GM Bottle TOP SCH ×2 (08:10→18:01)
[2020-08-03 09:36] LABS: CHLORIDE,CL 101 mmol/L (98-107); SODIUM,NA 137 mmol/L (136-145)
--- NOTE | 2020-08-03 09:58 | PCM.PN ---
- General Info Date of Service: 08/03/20 Admission Dx/Problem (Free Text): CHF Shortness of breath Diabetes Anemia Possible GI bleed Subjective Update: Doing well. Complaining of persistent cough. She feels like her breathing is at her baseline. No chest pain or tightness. No shortness of breath. No abdominal pain. Has had several episodes of incontinence, so difficult to tell overall fluid balance. - Review of Systems General: Denies: Fever, Weakness Pulmonary: Reports: Cough. Denies: Shortness of Breath, Sputum, Hemoptysis Cardiovascular: Denies: Chest Pain, Palpitations, Lightheadedness Gastrointestinal: Denies: Abdominal Pain, Hematochezia, Nausea, Vomiting Genitourinary: Denies: Dysuria, Frequency, Urgency Neurological: Denies: Confusion, Dizziness - Patient Data Vitals - Most Recent: Last Vital Signs Temp 36.6 C 08/03/20 08:00 Pulse 107 H 08/03/20 08:00 Resp 16 08/03/20 08:00 BP 122/69 08/03/20 08:00 Pulse Ox 93 L 08/03/20 08:00 Weight - Most Recent: 135.579 kg I&O - Last 24 Hours: Intake & Output 08/02/20 08/03/20 08/03/20 22:59 06:59 14:59 Intake Total 734 Output Total 75 Balance 659 Lab Results Last 24 Hours: Laboratory Results - last 24 hr 08/01/20 08/02/20 08/02/20 Range/Units 14:50 07:59 12:02 WBC (4.0-10.2) K/uL RBC (3.77-5.09) M/uL Hgb (11.7-15.5) g/dL Hct (34.0-46.0) % MCV (84.0-98.0) fL MCH (28.2-33.3) pg MCHC (31.7-36.0) g/dL RDW (11.2-14.1) % Plt Count (150-350) K/uL Neut % (Auto) (45.0-80.0) % Lymph % (Auto) (10.0-50.0) % [place] % (Auto) (2.0-14.0) % Eos % (Auto) (0.0-5.0) % Baso % (Auto) (0.0-2.0) % Neut # (Auto) (1.40-7.00) K/uL Lymph # (Auto) (0.50-3.50) K/uL [place] # (Auto) (0.00-1.00) K/uL Eos # (Auto) (0.00-0.50) K/uL Baso # (Auto) (0.00-0.20) K/uL Sodium (136-145) mmol/L Potassium (3.5-5.1) mmol/L Chloride (98-107) mmol/L Carbon Dioxide (21.0-32.0) mmol/L BUN (7-18) mg/dL Creatinine (0.51-1.17) mg/dL Est Cr Clr Drug Dosing mL/min Estimated GFR (MDRD) mL/min Glucose (74-106) mg/dL POC Glucose 237 H 293 H* (65-110) mg/dl Calcium (8.5-10.1) mg/dL SARS-CoV-2 RNA ([facility]) Negative (NEGATIVE) 08/02/20 08/02/20 08/03/20 Range/Units 17:17 20:38 07:35 WBC (4.0-10.2) K/uL RBC (3.77-5.09) M/uL Hgb (11.7-15.5) g/dL Hct (34.0-46.0) % MCV (84.0-98.0) fL MCH (28.2-33.3) pg MCHC (31.7-36.0) g/dL RDW (11.2-14.1) % Plt Count (150-350) K/uL Neut % (Auto) (45.0-80.0) % Lymph % (Auto) (10.0-50.0) % [place] % (Auto) (2.0-14.0) % Eos % (Auto) (0.0-5.0) % Baso % (Auto) (0.0-2.0) % Neut # (Auto) (1.40-7.00) K/uL Lymph # (Auto) (0.50-3.50) K/uL [place] # (Auto) (0.00-1.00) K/uL Eos # (Auto) (0.00-0.50) K/uL Baso # (Auto) (0.00-0.20) K/uL Sodium (136-145) mmol/L Potassium (3.5-5.1) mmol/L Chloride (98-107) mmol/L Carbon Dioxide (21.0-32.0) mmol/L BUN (7-18) mg/dL Creatinine (0.51-1.17) mg/dL Est Cr Clr Drug Dosing mL/min Estimated GFR (MDRD) mL/min Glucose (74-106) mg/dL POC Glucose 246 H 165 H 214 H (65-110) mg/dl Calcium (8.5-10.1) mg/dL SARS-CoV-2 RNA ([facility]O) (NEGATIVE) 08/03/20 08/03/20 Range/Units 07:50 07:50 WBC 3.5 L (4.0-10.2) K/uL RBC 3.00 L (3.77-5.09) M/uL Hgb 8.2 L (11.7-15.5) g/dL Hct 28.5 L (34.0-46.0) % MCV 95.0 (84.0-98.0) fL MCH 27.3 L (28.2-33.3) pg MCHC 28.8 L (31.7-36.0) g/dL RDW 19.1 H (11.2-14.1) % Plt Count 80 L (150-350) K/uL Neut % (Auto) 45.0 (45.0-80.0) % Lymph % (Auto) 37.8 (10.0-50.0) % [place] % (Auto) 14.6 H (2.0-14.0) % Eos % (Auto) 1.7 (0.0-5.0) % Baso % (Auto) 0.9 (0.0-2.0) % Neut # (Auto) 1.57 (1.40-7.00) K/uL Lymph # (Auto) 1.32 (0.50-3.50) K/uL [place] # (Auto) 0.51 (0.00-1.00) K/uL Eos # (Auto) 0.06 (0.00-0.50) K/uL Baso # (Auto) 0.03 (0.00-0.20) K/uL Sodium 137 (136-145) mmol/L Potassium 3.4 L (3.5-5.1) mmol/L Chloride 101 (98-107) mmol/L Carbon Dioxide 31.4 (21.0-32.0) mmol/L BUN 12 (7-18) mg/dL Creatinine 0.94 (0.51-1.17) mg/dL Est Cr Clr Drug Dosing 54.96 mL/min Estimated GFR (MDRD) > 60 mL/min Glucose 204 H (74-106) mg/dL POC Glucose (65-110) mg/dl Calcium 8.5 (8.5-10.1) mg/dL SARS-CoV-2 RNA ([facility]O) (NEGATIVE) Edilberto Results Last 24 Hours: Microbiology 08/02/20 10:30 Stool Occult Blood (EDILBERTO) - Final Stool / Feces NEGATIVE OCCULT BLOOD REFERENCE RANGE: NEGATIVE Med Orders - Current: Current Medications Albuterol/Ipratropium (Duoneb 3.0-0.5 Mg/3 Ml) 3 ml INH Q4HR PRN PRN Reason: Shortness of Breath Benzonatate (Tessalon Perles) 100 mg PO TID PRN PRN Reason: Cough Last Admin: 08/02/20 20:44 Dose: 100 mg Documented by: Buspirone HCl (Buspar) 5 mg PO BID PRN PRN Reason: Anxiety Cetirizine HCl (Zyrtec) 10 mg PO DAILY [facility] Last Admin: 08/03/20 07:38 Dose: 10 mg Documented by: Dextrose/Water (Dextrose 50% In Water) 50 ml IV ASDIRECTED PRN PRN Reason: Hypoglycemia Furosemide (Lasix) 40 mg IVPUSH DAILY [facility] Last Admin: 08/03/20 07:39 Dose: 40 mg Documented by: Glipizide (Glucotrol Xl) 10 mg PO DAILY [facility] Last Admin: 08/03/20 07:38 Dose: 10 mg Documented by: Glucagon (Glucagen) 1 mg IM ASDIRECTED PRN PRN Reason: Hypoglycemia Insulin Human Lispro (Humalog) 0 unit SUBCUT BIDAC [facility]; Protocol Last Admin: 08/03/20 07:44 Dose: 6 units Documented by: Nortriptyline HCl (Nortriptyline) 50 mg PO BEDTIME [facility] Last Admin: 08/02/20 20:44 Dose: 50 mg Documented by: Nystatin (Nystop) 1 gm TOP BID [facility] Last Admin: 08/03/20 08:10 Dose: 1 each Documented by: Sodium Chloride (Saline Flush) 10 ml FLUSH ASDIRECTED PRN PRN Reason: Keep Vein Open Last Admin: 08/03/20 07:39 Dose: 10 ml Documented by: Sumatriptan Succinate (Imitrex) 50 mg PO BID PRN PRN Reason: Headache Temazepam (Restoril) 15 mg PO BEDTIME PRN PRN Reason: insomnia Last Admin: 08/02/20 20:44 Dose: 15 mg Documented by: Discontinued Medications Cetirizine HCl (Zyrtec) 10 mg PO DAILY [facility] Last Admin: 08/02/20 01:57 Dose: Not Given Documented by: Magnesium Sulfate (Magnesium Sulfate In Water Premix) 100 mls @ 25 mls/hr IV ONETIME ONE Stop: 08/01/20 21:00 Last Admin: 08/01/20 19:53 Dose: 25 mls/hr Documented by: Pantoprazole Sodium (Protonix Iv) 40 mg IVPUSH DAILY [facility] Last Admin: 08/02/20 08:30 Dose: 40 mg Documented by: - Exam General: Alert, Oriented Extremities: Pedal Edema (1+ pedal edema the lower extremities bilaterally improved from yesterday.) Skin: Warm, Dry Psy/Mental Status: Alert Sepsis Event Note - Evaluation Sepsis Screening Result: No Definite Risk - Focused Exam Vital Signs: Vital Signs Temp Temp Pulse Resp BP Pulse Ox 08/03/20 08:00 36.6 C 107 H 16 122/69 93 L 08/03/20 00:00 36.6 C 106 H 20 97/57 L 94 L - Problem List & Annotations (1) Anemia SNOMED Code(s): 073609027 Code(s): D64.9 - ANEMIA, UNSPECIFIED Status: Acute Priority: Medium Current Visit: No Annotation/Comment:: Stool was negative for blood. No indication of GI bleed. She does have anemia but has on her last several visits and no indication of acute blood loss. We will stop the IV Pepcid. Can proceed with anemia evaluation as an outpatient. I believe patient was scheduled for a bone marrow biopsy likely for that reason. (2) CHF (congestive heart failure) SNOMED Code(s): 27066416 Code(s): I50.9 - HEART FAILURE, UNSPECIFIED Status: Acute Priority: High Current Visit: No Qualifiers: Annotation/Comment:: No crackles on exam. Breathing is nonlabored. We will continue the [facility] primary provider to adjust as needed tomorrow. (3) Diabetes type 2, uncontrolled SNOMED Code(s): 732047476, 869160823 Code(s): E11.65 - TYPE 2 DIABETES MELLITUS WITH HYPERGLYCEMIA Status: Acute Current Visit: No Annotation/Comment:: Continue of frequent blood sugar checks and Humalog as needed. - Problem List Review Problem List Initiated/Reviewed/Updated: Yes - My Orders Last 24 Hours: My Active Orders 08/02/20 10:48 OCCULT BLOOD DIAGNOSTIC [OP] Routine 08/02/20 19:53 Vital Signs [RC] 08,16,00 08/03/20 07:50 FERRITIN [CHEM] Routine IRON/TIBC [CHEM] Routine - Assessment Assessment:: CHF. Chronic cough. Anemia. Believe GI bleed is very unlikely at this point. Diabetes mellitus uncontrolled. - Plan Plan:: Continue with the diuresis. Monitor blood sugars and give insulin as needed. Possible discharge 1 to 2 days.
[2020-08-03] MEDS ORDERED: Insulin Lispro 100 Units/ML 3 ML Vial SUBCUT ONE (11:28)
[2020-08-03] MEDS: Temazepam 15 MG Cap PO PRN (19:47)
[2020-08-03] MEDS: Nortriptyline 25 MG Cap PO SCH (19:47)
[2020-08-03] MEDS: Benzonatate 100 MG Cap PO PRN (19:47)
[2020-08-04] MEDS: Insulin Lispro 100 Units/ML 3 ML Vial SUBCUT SCH (07:50)
[2020-08-04] MEDS: Nystatin Topical Powder 15 GM Bottle TOP SCH (07:51)
[2020-08-04] MEDS: Sodium Chloride 0.9% 10 ML Syringe FLUSH PRN (07:52)
[2020-08-04] MEDS: Furosemide 40 MG/4 ML VIAL IVPUSH SCH (07:52)
[2020-08-04] MEDS: glipiZIDE 5 MG Tab.ER PO SCH (07:52)
[2020-08-04] MEDS: Cetirizine 10 MG Tab PO SCH (07:53)
[2020-08-04 08:55] LABS: PTT,PARTIAL THROMBOPLSTIN TIME 31.5 SEC (24.5-32.8)
--- OUTSIDE RECORDS SUMMARY | 2020-08-04 09:15 | XMSREPORT ---
:[address] [facility] Address [address] [place] [address] Phone Reason For Referral No Reason for Referral was given. History Of Present Illness No HPI available. Assessments No Assessments available Plan of Care Name Dates Details Planned Observations Hospital Referral Request
--- OUTSIDE RECORDS SUMMARY | 2020-08-04 09:16 | XMSREPORT ---
:1960 Author Name Giovanni Hernández Address Unavailable Unavailable , Care Team Providers Name Role Phone Giovanni Hernández Unavailable Unavailable Elizabeth Unavailable Unavailable Rony Unavailable Unavailable oNrma Unavailable Unavailable Miroslava Green Unavailable Unavailable Elizabeth Unavailable Unavailable Rony, A Unavailable Unavailable Unavailable Unavailable Unavailable Reason for Referral Hospital addmission 08/01/20 Assessments No Information Problems Allergic rhinitis (477.9) (J30.9) Arthritis (716.90) (M19.90) Osteoporosis (733.00) (M81.0) GERD (gastroesophageal reflux disease) (530.81) (K21.9) Back pain, acute (724.5) (M54.9) Asthma (493.90) (J45.909) Migraine (346.90) (G43.909) Encounter for vaccination (V05.9) (Z23) Knee pain (719.46) (M25.569) Fatigue (780.79) (R53.83) Medication management contract agreement (V68.89) (Z02.89) Shoulder pain, left (719.41) (M25.512) Shoulder pain, right (719.41) (M25.511) Depression (311) (F32.9) Anxiety (300.00) (F41.9) Urge incontinence of urine (788.31) (N39.41) Pre-op exam (V72.84) (Z01.818) Vertigo (780.4) (R42) Visit for suture removal (V58.32) (Z48.02) Wheezing (786.07) (R06.2) Acute bronchitis (466.0) (J20.9) Shortness of breath (786.05) (R06.02) Dependent edema (782.3) (R60.9) Cough (786.2) (R05) Anemia (285.9) (D64.9) CHF, chronic (428.0) (I50.9) High blood pressure (401.9) (I10) High cholesterol (272.0) (E78.00) Hypokalemia (276.8) (E87.6) Hypomagnesemia (275.2) (E83.42) Type 2 diabetes mellitus (250.00) (E11.9) Nausea & vomiting (787.01) (R11.2) Allergies and Adverse Reactions azithromycin (Allergy) codeine (Allergy) erythromycin (Allergy) Iron (Allergy) Penicillins (Allergy) Toradol (Allergy) Bee sting (Allergy) Watermelon (Allergy) Medications Simvastatin 20 MG Oral Tablet; TAKE 1 TABLET DAILY. Jigna Uribe Quantity: 30 Refills: 5 Losartan Potassium 50 MG Oral Tablet; TAKE 1 TABLET BY MOUTH ONCE DAILY Kathryn Johnson Quantity: 30 Refills: 8 Cyclobenzaprine HCl - 10 MG Oral Tablet; Take 1 tablet daily Kayla Uribe Quantity: 30 Refills: 2 Cetirizine HCl - 10 MG Oral Tablet; Take 1 tablet daily Kayla Uribe Quantity: 30 Refills: 2 DuoNeb 0.5-2.5 (3) MG/3ML Inhalation Solution; INHALE 1 VIAL Every 6 hours Refills: 0 Nortriptyline HCl - 50 MG Oral Capsule; TAKE 1 CAPSULE Bedti Kayla Babin Quantity: 30 Refills: 2 Vitamin D-3 125 MCG (5000 UT) Oral Tablet Refills: 0 EPINEPHrine 0.3 MG/0.3ML Injection Solution Auto-injector Refills: 0 Gabapentin 100 MG Oral Capsule; TAKE 2 CAPSULE Daily Kathryn Johnson Start: 22-Dec-2018 Quantity: 180 Refills: 1 Vitamin B-12 500 MCG Oral Tablet; TAKE 1 TABLET DAILY. Refills: 0 Contour Next Test In Vitro Strip; TEST 4 TIMES DAILY. Kathryn Ralph Start: 10-May-2019 Quantity: 1 100 Strip Box Refills: 3 busPIRone HCl - 10 MG Oral Tablet; TAKE 1 TABLET 3 TIMES DONNY LYKayla Aranda Start: 08-Jan-2020 Quantity: 90 Refills: 2 Omeprazole 20 MG Oral Capsule Delayed Release; TAKE 1 CAPSUL E Daily Kayla Uribe Start: 04-Feb-2020 Quantity: 30 Refills: 5 Ipratropium-Albuterol 0.5-2.5 (3) MG/3ML Inhalation Solution; Inhale with nebulizer 4 times a day for 5 days then as needed Hamzah Green Star t: 17-Jun-2020 Quantity: 1 3 ML Plas Cont Refills: 1 guaiFENesin 200 MG/10ML Oral Solution; T leyda 10 ml every 6 hours for 5 days then as needed Hamzah Green Start: 17-Jun-2020 Quantity: 240 100 x 10 ML Cup Refills: 0 Niferex Oral Tablet; TAKE 1 TABLET EVERY OTHER DAY WITH FOOD Hamzah Green Start: 17-Jun-2020 Quantity: 60 Refills: 1 glipiZIDE ER 10 MG Oral Tablet Extended Release 24 Luba r; TAKE 1 TABLET DAILY. Hamzah Green Start: 17-Jun-2020 Quantity: 90 Refills: 0 Magnesium 300 MG Oral Capsule; TAKE TWO TABS DAILY Hamzah Green Start: 01-Jul-2020 Quantity: 90 Refills: 0 Pioglitazone HCl - 15 MG Oral Tablet; TAKE 1 TABLET ONCE DONNY LY. Hamzah Green Start: 01-Jul-2020 Quantity: 60 Refills: 1 Benzonatate 200 MG Oral Capsule; TAKE 1 CAPSULE 3 TIMES DAILY NEEDED for cough Hamzah Green Start: 01-Jul-2020 Quantity: 30 Refills: 0 Jardiance 10 MG Oral Tablet; TAKE 1 TABLET BY MOUTH ONCE DONNY LY Hamzah Green Start: 29-Jul-2020 Quantity: 30 Refills: 0 Furosemide 20 MG Oral Tablet; TAKE 1 TAB LET morning and then 1 tablet at 4 PM in the afternoon. Hamzah Green Start: 01-Jul-2020 Quantity: 30 Refills: 0 Potassium Chloride ER 10 MEQ Oral Tablet Extended Release; TAKE 2 TABLETS TWICE DAILY Hamzah Green Start: 17-Jun-2020 Quantity: 60 Refills: 0 SUMAtriptan Succinate 50 MG Oral Tablet; TAKE 1 TABLET FOR MIGRAINE RELIEF. MAY REPEAT EVERY 2 HOURS. MAX 200MG/DAY. Kathryn Johnson Quantity: 20 Refills: 0 Bumetanide 1 MG Oral Tablet; TAKE 1 TABLET Daily at noon Buc Hamzah jay Start: 29-Jul-2020 Quantity: 14 Refills: 0 Procedures Electrocardiogram (EKG/ECG) Date: 01-Aug-2020 CORONAVIRUS COVID-19 [facility] Date: 01-Aug-2020 CR Chest 2V Date: 01-Aug-2020 History of Gallbladder surgery Status: C ompleted History of Knee surgery Status: Complete d History of Tubal ligation Status: Comple andrew Immunizations Fluzone Quadrivalent 0.5 ML Intramuscular Suspension P refilled Syringe Not Administered Patient Objection Fluzone Quadrivalent 0.5 ML Intramuscular Suspension P refilled Syringe On: 07-Jun-2019 Lot #: [id number], [employer] Pneumococcal polysaccharide vaccine, 23 valent On: 07-Jun-20 19 Lot #: [id number], [employer]CK [employer] DOHME Tdap 0 On: 14-Apr-2020 Family History Family history unknown (V49.89) (Z78.9) Status: Active Family history unknown (V49.89) (Z78.9) Status: Active Social History - Never smoked tobacco Plan of Treatment Planned Goals not documented Results BASIC METABOLIC PANEL,BMP Laboratory: [facility] Comments: Reas on for Exam: I50.9,E83.42E87.6 22-Jul-2020 9:48 SODIUM,NA 137 mmol/L Range: 136-145 (Normal) POTASSIUM,K 3.3 mmol/L Range: 3.5-5.1 (below low threshold) CHLORIDE,CL 100 mmol/L Range: 98-107 (Normal) CARBON DIOXIDE,CO2 29.1 Range: 21.0-32. 0 mmol/L (Normal) GLUCOSE RANDOM 367 mg/dL Range: 74-106 (above high threshold) BLOOD UREA NITROGEN,BUN 8 Range: 7-18 mg/dL (Normal) CREATININE 0.88 mg/dL Range: 0.51-1.17 (Normal) ESTIMATED GFR > 60 mL/min (Normal) CALCIUM 8.7 mg/dL (Normal) Range: 8.5-1 0.1 EST CRCL DRUG DOSING (CG) Comments: Teja ot calculate Test Not Performed mL/min creatinine ramin arance because (Normal) height is missing. MAGNESIUM Laboratory: [facility] Comments: Reason for Exam: I50.9,E83.42E87.6 22-Jul-2020 9:48 MAGNESIUM 1.6 mg/dL (below Range: 1.8-2 .4 low threshold) PRO B-TYPE NATRIUR Laboratory: [facility] Comments: Reason for Exam: PEPT,BNPPRO I50.9,E83.42E87.6 22-Jul-2020 9:48 PRO B-TYPE NATRIUR Range: 0-125 PEPT,BNPPRO 937 pg/mL (above high threshold) BASIC METABOLIC PANEL,BMP Laboratory: [facility] Comments: Reas on for Exam: E83.42,E87.6, Fastin g Status: Unknown 29-Jul-2020 10:05 SODIUM,NA 136 mmol/L Range: 136-145 (Normal) POTASSIUM,K 3.8 mmol/L Range: 3.5-5.1 (Normal) CHLORIDE,CL 101 mmol/L Range: 98-107 (Normal) CARBON DIOXIDE,CO2 29.6 Range: 21.0-32. 0 mmol/L (Normal) GLUCOSE RANDOM 437 mg/dL Range: 74-106 (Critical abnormal) Comments: GLUCOSE RA ND RESULTS CALLED TO AND READ BACK BY SILVIA Galindo AT 07/29/20 1028 BY Cony Chatman. BLOOD UREA NITROGEN,BUN 13 Range: 7-18 mg/dL (Normal) CREATININE 0.97 mg/dL Range: 0.51-1.17 (Normal) ESTIMATED GFR 59 mL/min (Normal) CALCIUM 8.9 mg/dL (Normal) Range: 8.5-1 0.1 EST CRCL DRUG DOSING (CG) Comments: Teja ot calculate Test Not Performed mL/min creatinine ramin arance because (Normal) height is missing. MAGNESIUM Laboratory: [facility] Comments: Reason for Exam: E83.42,E87.6, Fastin g Status: Unknown 29-Jul-2020 10:05 MAGNESIUM 1.7 mg/dL (below Range: 1.8-2 .4 low threshold) CBC W/O DIFF,HEMOGRAM Laboratory: [facility] Comments: Reason f or Exam: R11.2,I50.9,E83.42, 01-Aug-2020 14:39 WHITE BLOOD CELL COUNT,WBC Range: 4.0-1 0.2 3.2 K/uL (below low threshold) RED BLOOD CELL COUNT 3.09 Range: 3.77-5 .09 {M/uL} (below low threshold) HEMOGLOBIN 8.5 g/dL (below Range: 11.7- 15.5 low threshold) HEMATOCRIT 29.4 % (below Range: 34.0-46 .0 low threshold) MEAN CORPUSCULAR VOLUME Range: 84.0-98. 0 95.1 fL (Normal) MEAN CORPUSCULAR Range: 28.2-33.3 HEMOGLOBIN 27.5 pg (below low threshold) MEAN CORPUSCULAR HGB CONC Range: 31.7-3 6.0 28.9 g/dL (below low threshold) RED CELL DISTRIBUTION Range: 11.2-14.1 WIDTH 18.7 % (above high threshold) PLATELET COUNT,PLT 79 K/uL Range: 150-3 50 (below low threshold) MEAN PLATELET VOLUME 12.20 Range: 7.00- 11.50 fL (above high threshold) COMPREHENSIVE METABOLIC Laboratory: [facility] Comments: Reason for Exam: PN,CMP (ND) R11.2,I50.9,E83.42, Fasting Status: Unknown 01-Aug-2020 14:39 SODIUM,NA 136 mmol/L Range: 136-145 (Normal) POTASSIUM,K 3.8 mmol/L Range: 3.5-5.1 (Normal) CHLORIDE,CL 100 mmol/L Range: 98-107 (Normal) CARBON DIOXIDE,CO2 28.6 Range: 21.0-32. 0 mmol/L (Normal) GLUCOSE RANDOM 337 mg/dL Range: 74-106 (above high threshold) BLOOD UREA NITROGEN,BUN 7 Range: 7-18 mg/dL (Normal) CREATININE 0.89 mg/dL Range: 0.51-1.17 (Normal) ESTIMATED GFR > 60 mL/min (Normal) CALCIUM 8.8 mg/dL (Normal) Range: 8.5-1 0.1 PROTEIN TOTAL,TP 7.0 g/dL Range: 6.4-8. 2 (Normal) ALBUMIN 2.5 g/dL (below Range: 3.4-5.0 low threshold) BILIRUBIN TOTAL 2.5 mg/dL Range: 0.2-1. 0 (above high threshold) ALKALINE PHOSPHATASE 110 Range: 46-116 {IU/L} (Normal) ALANINE Range: 12-78 AMINOTRANSFERASE,ALT 10 U/L (below low threshold) ASPARTATE Range: 15-37 AMNIOTRANSFERASE,AST 25 U/L (Normal) EST CRCL DRUG DOSING (CG) Comments: Teja ot calculate Test Not Performed mL/min creatinine ramin arance because (Normal) height is missing. MAGNESIUM Laboratory: [facility] Comments: Reason for Exam: R11.2,I50.9,E83.42, Fasting Status: Unknown 01-Aug-2020 14:39 MAGNESIUM 1.5 mg/dL (below Range: 1.8-2 .4 low threshold) PRO B-TYPE NATRIUR Laboratory: [place] Comments: Reason for Exam: PEPT,BNPPRO R11.2,I50.9,E83.42, Fasting Status: Unknown 01-Aug-2020 14:39 PRO B-TYPE NATRIUR Range: 0-125 PEPT,BNPPRO 1175 pg/mL (above high threshold) TROPONIN I Laboratory: [facility] Comments: Reason for Exam: R06.02, 01-Aug-2020 14:39 TROPONIN I 0.012 ng/mL Range: 0.000-0.0 56 (Normal) Vital Signs 01-Aug-2020 14:11 Systolic 104 mm[Hg] Diastolic 70 mm[Hg] Height 61 in Weight 279 lb BMI Calculated 52.72 kg/m2 BSA Calculated 2.18 m2 Temperature 97.6 f Respiration 18 /min Heart Rate 104 /min 29-Jul-2020 10:08 O2 Saturation 94 % 29-Jul-2020 10:00 Systolic 100 mm[Hg] Diastolic 60 mm[Hg] Height 61 in Weight 284 lb BMI Calculated 53.66 kg/m2 BSA Calculated 2.19 m2 Temperature 97.2 f Respiration 18 /min Heart Rate 106 /min 22-Jul-2020 11:02 Height 60 in Weight 282 lb BMI Calculated 55.07 kg/m2 BSA Calculated 2.16 m2 22-Jul-2020 10:11 Systolic 102 mm[Hg] Diastolic 62 mm[Hg] Temperature 97.4 f Respiration 20 /min Heart Rate 96 /min Encounters Appointment; Elizabeth Kathryn 11-Feb-2020 9:30 Encounter Diagnosis: Problem not documented [facility] Encounter Diagnosis: Problem not documented Appointment; Elizabeth Kathryn 07-Jun-2019 9:30 Encounter Diagnosis: Problem not documented Appointment; Elizabeth Kathryn 07-May-2019 12:30 Encounter Diagnosis: Problem not documented Appointment; Elizabeth Kathryn 20-Apr-2019 11:00 Encounter Diagnosis: Problem not documented Appointment; Elizabeth Kathryn 10-Apr-2019 13:00 Encounter Diagnosis: Problem not documented Appointment; Elizabeth Kathryn 05-Feb-2019 15:00 Encounter Diagnosis: Problem not documented Appointment; Elizabeth Kathryn 26-Dec-2018 13:30 Encounter Diagnosis: Problem not documented Appointment; Elizabeth Kathryn 29-Nov-2018 12:00 Encounter Diagnosis: Problem not documented
[2020-08-04 10:01] LABS: CHLORIDE,CL 98 mmol/L (98-107); SODIUM,NA 135 mmol/L (136-145)
--- NOTE | 2020-08-04 10:03 | PCM.DCSUM1 ---
Discharge Summary - Hospital Course HPI Initial Comments: See admission H&P Brief History: See admission H&P Diagnosis: Stroke: No Modified Bridget Scale: No Symptoms at All Modified Bridget Scale Score: 0 - Discharge Data Discharge Date: 08/04/20 Discharge Disposition: Home, Self-Care 01 Condition: Fair - Referral to Home Health Primary Care Physician: Hamzah Green PA-C - Discharge Diagnosis/Problem(s) (1) CHF (congestive heart failure) SNOMED Code(s): 28006773 ICD Code: I50.9 - HEART FAILURE, UNSPECIFIED Status: Acute Priority: High Current Visit: Yes Problem Details: Excellent results with IV Lasix therapy. The patient was extensively counseled on the importance of daily weights and ea rly follow-up, if she gains more than 5 pounds after discharge. No chest pain or anginal type symptoms either prior to or during this hospitalization. Further cardiac work-up and/or referral depending on her clinical course with multiple cardiac risk factors, including hypertension, IDDM, hyperlipidemia, etc.. Note 9 kg weight loss since admission secondary to IV Lasix therapy as above. Note improvement of her BNP at time of discharge with stable mild change in troponin I, which is still normal. Qualifiers: Heart failure type: unspecified Heart failure chronicity: acute on chronic Qualified Code(s): I50.9 - Heart failure, unspecified (2) Pancytopenia SNOMED Code(s): 321696210 ICD Code: D61.818 - OTHER PANCYTOPENIA Status: Acute Priority: High Current Visit: Yes Problem Details: Significant pancytopenia throughout this hospitalization, which was relatively stable. Note that the patient apparently had a fine-needle aspiration biopsy scheduled for 08/04 at [facility] with this appointment missed secondary to this hospitalization. Oncology referral DEJA with our nurses to assist the patient in rescheduling today's appointment. There are apparently transportation issues, etc.. Despite history of possible mild gross hematochezia from her hemorrhoids? hemoccult of stools were negative during this hospitalization with no evidence of significant GI bleed, etc. Iron and folic acid deficiency diagnosed during this hospitalization with initiation of appropriate medical therapy and close follow-up by her regular providers. Note the patient plans to move to [place], [place] shortly. (3) Asthma SNOMED Code(s): 749984224 ICD Code: J45.909 - UNSPECIFIED ASTHMA, UNCOMPLICATED Status: Chronic Priority: Medium Current Visit: Yes Problem Details: Asthma versus COPD with no bronchitic type symptoms during this hospitalization. Secondary to current COVID-19 pandemic high-dose inhalers will be used rather than inhalers. Consider PFTs once the patient is back to her normal baseline. Qualifiers: Asthma severity: mild Asthma persistence: intermittent Asthma complic ation type: uncomplicated Qualified Code(s): J45.20 - Mild intermittent asthma, uncomplicated (4) Diabetes mellitus type 2 in obese SNOMED Code(s): 10466933 ICD Code: E11.69 - TYPE 2 DIABETES MELLITUS WITH OTHER SPECIFIED COMPLICATION; E66.9 - OBESITY, UNSPECIFIED Status: Chronic Priority: Medium Current Visit: No Problem Details: Patient placed on sliding scale during this hospitalization, although the patient has not started insulin therapy to this point despite previous recommendations, including during hospitalizations in this facility. Continue sliding scale after discharge with patient requesting that bottled insulin rather than pens be prescribed. Close follow-up by regular provider. Weight loss in moderation is advisable. (5) GERD (gastroesophageal reflux disease) SNOMED Code(s): 691703184 ICD Code: K21.9 - GASTRO-ESOPHAGEAL REFLUX DISEASE WITHOUT ESOPHAGITIS Status: Chronic Priority: Medium Current Visit: Yes Problem Details: Stable during this hospitalization and prior to admission by history with no medical therapy required during this hospitalization. No evidence of GI bleed, etc. despite her pancytopenia as above. Continue to observe closely by her regular providers. Qualifiers: Esophagitis presence: without esophagitis Qualified Code(s): K21.9 - Gastro-esophageal reflux disease without esophagitis (6) Hypertension SNOMED Code(s): 94985989 ICD Code: I10 - ESSENTIAL (PRIMARY) HYPERTENSION Status: Chronic Priority: High Current Visit: Yes Problem Details: Stable during this hospitalization, although occasional nonsymptomatic borderline hypotension was persistent tachycardia. Continue to observe closely. Note current obesity and minimal activity level. Qualifiers: Hypertension type: essential hypertension Qualified Code(s): I10 - Essential (primary) hypertension (7) Mixed anxiety depressive disorder SNOMED Code(s): 441132062 ICD Code: F41.8 - OTHER SPECIFIED ANXIETY DISORDERS Status: Chronic Priority: Medium Current Visit: Yes Problem Details: Stable during this hospitalization with no medication changes for now. Continue to observe closely by her regular provider. (8) Anemia SNOMED Code(s): 533736583 ICD Code: D64.9 - ANEMIA, UNSPECIFIED Status: Acute Priority: High Current Visit: Yes Problem Details: Note iron and folic acid deficiency anemia with close follow-up by regular provider including repeat iron and folic acid studies as per discharge instructions. Her vitamin B12 level was normal during his hospitalization. The patient does have a history of pancytopenia as above with stool negative for blood during this hospitalization. No indication of GI bleed. Qualifiers: Anemia type: iron deficiency Iron deficiency anemia type: other iron deficiency Qualified Code(s): D50.8 - Other iron deficiency anemias (9) Hypomagnesemia SNOMED Code(s): 362622029 ICD Code: E83.42 - HYPOMAGNESEMIA Status: Chronic Priority: Medium Current Visit: Yes Problem Details: Magnesium oxide at discharge with close follow-up by her regular provider. (10) Hyperbilirubinemia SNOMED Code(s): 44175267 ICD Code: E80.6 - OTHER DISORDERS OF BILIRUBIN METABOLISM Status: Acute Priority: Medium Current Visit: Yes Onset Date: ~08/01/20 Problem Details: Note pancytopenia. Observe for now. Direct and indirect bilirubin at follow-up as per discharge instructions. (11) Hypoalbuminemia SNOMED Code(s): 111016042 ICD Code: E88.09 - OTH DISORDERS OF PLASMA-PROTEIN METABOLISM, NEC Status: Chronic Priority: Medium Current Visit: Yes Onset Date: 04/24/20 Problem Details: Observe for now. Note current obesity. Consider high-protein Glucerna supplements as snacks. (12) Hypokalemia SNOMED Code(s): 10389360 ICD Code: E87.6 - HYPOKALEMIA Status: Acute Priority: Medium Current Visit: No Onset Date: 04/14/20 Problem Details: Chronic problem. Adjust potassium chloride supplementation at discharge with close follow-up by her regular provider. - Patient Summary/Data Operative Procedure(s) Performed: None Complications: None Consults: None Labs Pending at D/C: None Recommended Follow-up Testing/Procedures: As per discharge instructions Planned Operative Procedure(s) after DC: As per discharge instructions Hospital Course: Patient was admitted to acute care on telemetry for IV Lasix therapy secondary to exacerbation of her chronic CHF, which has been refractory to outpatient oral Lasix. She denied any chest pain or any other anginal type symptoms either prior to hospitalization or during this hospitalization. The patient responded extremely well to IV Lasix therapy. Note long history of pancytopenia with patient missing her fine-needle aspiration biopsy appointment at [facility] in [place], which had been scheduled for earlier this morning. Patient is about ready to move to [place] as above with the patient strongly recommended not to delay work-up for her pancytopenia. Otherwise no complications during this hospitalization. Note patient will be started on Humalog mix sliding scale for her IDDM with patient noncompliant with this therapy in the past. - Patient Instructions Diet: Full Liquid Diet Diet, Other: Heart healthy, 1500-calorie ADA Fluid Restriction: 2000 mL Activity: As Tolerated Driving: May Drive Today Showering/Bathing: May Shower Notify Provider of: Increased Pain, Nausea and/or Vomiting Other/Special Instructions: 1. Followup with your regular provider in 7 days as directed for reevaluation and recommended repeat CBC, comprehensive metabolic panel, magnesium level, INR, PT, BNP, troponin I, and chest x-ray. Bring these discharge instructions with you to that visit. 2. Follow-up with hemeoncology at [facility] in [place] DEJA as scheduled by our nurses today for fine- needle aspiration biopsy, etc. as previously scheduled. 3. Home blood sugars on a twice a day basis, i.e., before breakfast and before supper, with this record to be brought to every doctor's appointment. 4. Buy a scale [facility] and weigh yourself daily. Notify your primary provider [facility], if you gain more than 5 pounds from today's discharge weight of 278 pounds. 5. Immediately after this visit verify that your cellular telephone's voicemail has been activated and is empty. Also verify that your home telephone's answering machine is operating properly and has space to receive messages. Note that it is sometimes necessary for us to be able to contact you at a later date to discuss your medical care. 6. Weight loss in moderation as discussed with strict compliance with your diet. 7. Please remember that we are ALWAYS here for you and want to answer any questions you may have. Feel free to call the hospital any time and we call you back [facility]. 8. TIBC panel, ferritin level, and folic acid level should be repeated in 1 month. - Discharge Plan *PRESCRIPTION DRUG MONITORING PROGRAM REVIEWED*: Not Applicable *COPY OF PRESCRIPTION DRUG MONITORING REPORT IN PATIENT DAMARIS: Not Applicable Prescriptions/Med Rec: Ferrous Sulfate 325 mg PO BID #60 tablet Folic Acid 1 mg PO DAILY #30 tab Insulin Lispro Prot/Lispro [HumaLOG Mix 75-25] See Protocol SQ BIDAC #1 bottle Furosemide [Lasix] 40 mg PO DAILY #14 tablet Magnesium Oxide 400 mg PO BID #20 tab Potassium Chloride 20 meq PO BID #20 tablet.er Home Medications: Home Meds Albuterol/Ipratropium [DuoNeb 3.0-0.5 MG/3 ML] 3 ml INH QID 02/01/19 [History] Cetirizine HCl [Zyrtec] 10 mg PO DAILY 02/01/19 [History] Cyclobenzaprine [Flexeril] 10 mg PO DAILY 02/01/19 [History] Gabapentin [Neurontin] 200 mg PO DAILY 02/01/19 [History] Losartan Potassium [Cozaar] 50 mg PO DAILY 02/01/19 [History] Nortriptyline HCl [Pamelor] 50 mg PO BEDTIME 02/01/19 [History] Omeprazole 20 mg PO DAILY 02/01/19 [History] busPIRone [Buspar] 10 mg PO TID 02/01/19 [History] glipiZIDE [Glipizide ER] 10 mg PO DAILY 02/01/19 [History] SUMAtriptan succinate [Imitrex] 50 mg PO BID PRN 10/29/19 [History] Cholecalciferol (Vitamin D3) [Vitamin D3] 125 mcg PO 08/01/20 [History] Cyanocobalamin (Vitamin B-12) [Vitamin B-12] 500 mcg PO DAILY 08/01/20 [History] Simvastatin [Zocor] 20 mg PO DAILY 08/01/20 [History] metFORMIN HCl [Metformin HCl] 500 mg PO 1800 08/01/20 [History] Ferrous Sulfate 325 mg PO BID #60 tablet 08/04/20 [Rx] Folic Acid 1 mg PO DAILY #30 tab 08/04/20 [Rx] Furosemide [Lasix] 40 mg PO DAILY #14 tablet 08/04/20 [Rx] Insulin Lispro Prot/Lispro [HumaLOG Mix 75-25] See Protocol SQ BIDAC #1 bottle 08/04/20 [Rx] Magnesium Oxide 400 mg PO BID #20 tab 08/04/20 [Rx] Potassium Chloride 20 meq PO BID #20 tablet.er 08/04/20 [Rx] Oxygen Therapy Mode: Room Air - Discharge Summary/Plan Comment DC Time >30 min.: Yes (Coordination of care ) Discharge Summary/Plan Comment: As above. Extensive precautions were given to the patient, who is in agreement with the treatment plan. See Patient Instructions for further treatment and plan. - General Info Date of Service: 08/04/20 Admission Dx/Problem (Free Text: 1. CHF 2. Pancytopenia shortness of breath 3. Diabetes mellitus 4. Asthma/COPD Functional Status: Reports: Pain Controlled, Tolerating Diet, Ambulating, Urinating, Incentive Spirometry. Denies: New Symptoms Numeric/FACES Score: 0 - Review of Systems General: Reports: No Symptoms. Denies: Fever, Weakness, Fatigue, Chills, Appetite HEENT: Reports: Glasses. Denies: Ear Pain, Eye Pain, Headaches, Post Nasal Drip, Sinus Congestion, Sore Throat, Rhinitis, Visual Changes Pulmonary: Reports: Cough (Chronic nonproductive). Denies: Shortness of Breath, Pleuritic Chest Pain, Sputum, Hemoptysis, Wheezing Cardiovascular: Reports: Edema (Stable dependent). Denies: Chest Pain, Palpitations, Dyspnea on Exertion, Orthopnea, PND, Lightheadedness Gastrointestinal: Denies: Abdominal Pain, Constipation, Decreased Appetite, Diarrhea, Difficulty Swallowing, Flatus, Hematochezia, Melena, Nausea, Vomiting Genitourinary: Reports: No Symptoms. Denies: Dysuria, Frequency, Burning, Pain, Urgency, Incontinence, Hematuria, Retention, Flank Pain Musculoskeletal: Reports: Back Pain (Stable chronic). Denies: Neck Pain, Shoulder Pain, Arm Pain, Hand Pain Skin: Reports: Bruising. Denies: Diaphoresis, Rash Neurological: Denies: Confusion, Dizziness, Headache, Numbness, Paresthesia, Difficulty Walking, Weakness Psychiatric: Reports: No Symptoms. Denies: Confusion, Depression, Anxiety, Agitation, Homicidal Ideation - Patient Data Vitals - Most Recent: Last Vital Signs Temp 36.7 C 08/03/20 16:00 Pulse 108 H 08/03/20 16:00 Resp 16 08/03/20 16:00 BP 113/59 L 08/03/20 16:00 Pulse Ox 94 L 08/03/20 16:00 Vital Signs - 24 hr 08/03/20 08/04/20 16:00 08:00 Temperature [ 36.7 C 36.6 C Temporal] Pulse, 108 H 103 H Peripheral [ Left Pulse Oximetry] Respiratory 16 20 Rate Blood Pressure 113/59 L [Right Upper Arm] O2 Sat by Pulse 94 L 95 Oximetry Weight - Most Recent: 126.325 kg I&O - Last 24 hours: Intake & Output 08/03/20 08/04/20 08/04/20 22:59 06:59 14:59 Intake Total 240 Balance 240 Imaging Impressions - Last 24 hrs: youth nutritional monitor shows mild sinus tachycardia with heart rate in the 100s with no ectopy or arrhythmia. Chest x-ray, PA and lateral, on 08/04/2020 showed evidence of moderate COPD chata nges with mild cardiomegaly and persistent mild CHF. No pulmonary infiltrates, pneumothorax, etc. Mild to moderate osteoarthritic and osteoporotic changes were noted. Lab Results - Last 24 hrs: Laboratory Results - last 24 hr 08/03/20 08/03/20 08/03/20 Range/Units 07:50 11:20 17:24 WBC (4.0-10.2) K/uL RBC (3.77-5.09) M/uL Hgb (11.7-15.5) g/dL Hct (34.0-46.0) % MCV (84.0-98.0) fL MCH (28.2-33.3) pg MCHC (31.7-36.0) g/dL RDW (11.2-14.1) % Plt Count (150-350) K/uL Neut % (Auto) (45.0-80.0) % Lymph % (Auto) (10.0-50.0) % Bremer % (Auto) (2.0-14.0) % Eos % (Auto) (0.0-5.0) % Baso % (Auto) (0.0-2.0) % Neut # (Auto) (1.40-7.00) K/uL Lymph # (Auto) (0.50-3.50) K/uL Bremer # (Auto) (0.00-1.00) K/uL Eos # (Auto) (0.00-0.50) K/uL Baso # (Auto) (0.00-0.20) K/uL PT (9.5-12.0) SEC INR APTT (24.5-32.8) SEC POC Glucose 338 H* 221 H (65-110) mg/dl Iron 27 L (50-175) ug/dL TIBC 299 (250-450) ug/dL % Saturation [id number] Ferritin 45 (8-388) ng/mL 08/04/20 08/04/20 Range/Units 08:30 08:30 WBC 4.2 (4.0-10.2) K/uL RBC 3.29 L (3.77-5.09) M/uL Hgb 9.0 L (11.7-15.5) g/dL Hct 31.2 L (34.0-46.0) % MCV 94.8 (84.0-98.0) fL MCH 27.4 L (28.2-33.3) pg MCHC 28.8 L (31.7-36.0) g/dL RDW 19.2 H (11.2-14.1) % Plt Count 87 L (150-350) K/uL Neut % (Auto) 50.2 (45.0-80.0) % Lymph % (Auto) 31.4 (10.0-50.0) % Bremer % (Auto) 15.1 H (2.0-14.0) % Eos % (Auto) 2.4 (0.0-5.0) % Baso % (Auto) 0.9 (0.0-2.0) % Neut # (Auto) 2.13 (1.40-7.00) K/uL Lymph # (Auto) 1.33 (0.50-3.50) K/uL Bremer # (Auto) 0.64 (0.00-1.00) K/uL Eos # (Auto) 0.10 (0.00-0.50) K/uL Baso # (Auto) 0.04 (0.00-0.20) K/uL PT 11.2 (9.5-12.0) SEC INR 1.1 APTT 31.5 (24.5-32.8) SEC POC Glucose (65-110) mg/dl Iron (50-175) ug/dL TIBC (250-450) ug/dL % Saturation Ferritin (8-388) ng/mL Laboratory Tests 08/01/20 08/01/20 08/01/20 Range/Units 14:39 14:39 14:39 WBC 3.2 L (4.0-10.2) K/uL RBC 3.09 L (3.77-5.09) M/uL Hgb 8.5 L (11.7-15.5) g/dL Hct 29.4 L (34.0-46.0) % MCV 95.1 (84.0-98.0) fL MCH 27.5 L (28.2-33.3) pg MCHC 28.9 L (31.7-36.0) g/dL RDW 18.7 H (11.2-14.1) % Plt Count 79 L (150-350) K/uL MPV 12.20 H (7.00-11.50) fL Neut % (Auto) (45.0-80.0) % Lymph % (Auto) (10.0-50.0) % Bremer % (Auto) (2.0-14.0) % Eos % (Auto) (0.0-5.0) % Baso % (Auto) (0.0-2.0) % Neut # (Auto) (1.40-7.00) K/uL Lymph # (Auto) (0.50-3.50) K/uL Bremer # (Auto) (0.00-1.00) K/uL Eos # (Auto) (0.00-0.50) K/uL Baso # (Auto) (0.00-0.20) K/uL PT (9.5-12.0) SEC INR APTT (24.5-32.8) SEC Sodium 136 (136-145) mmol/L Potassium 3.8 (3.5-5.1) mmol/L Chloride 100 (98-107) mmol/L Carbon Dioxide 28.6 (21.0-32.0) mmol/L BUN 7 (7-18) mg/dL Creatinine 0.89 (0.51-1.17) mg/dL Est Cr Clr Drug Dosing TNP Estimated GFR (MDRD) > 60 mL/min Glucose 337 H (74-106) mg/dL POC Glucose (65-110) mg/dl Calcium 8.8 (8.5-10.1) mg/dL Magnesium 1.5 L (1.8-2.4) mg/dL Iron (50-175) ug/dL TIBC (250-450) ug/dL % Saturation Ferritin (8-388) ng/mL Total Bilirubin 2.5 H (0.2-1.0) mg/dL AST 25 (15-37) U/L ALT 10 L (12-78) U/L Alkaline Phosphatase 110 (46-116) IU/L Troponin I 0.012 (0.000-0.056) ng/mL NT-Pro-B Natriuret Pep 1175 H (0-125) pg/mL Total Protein 7.0 (6.4-8.2) g/dL Albumin 2.5 L (3.4-5.0) g/dL Vitamin B12 (193-986) pg/mL Folate (8.6-58.9) ng/mL SARS-CoV-2 RNA (CHAYITO) (NEGATIVE) 08/01/20 08/01/20 08/01/20 Range/Units 14:50 19:49 22:10 WBC (4.0-10.2) K/uL RBC (3.77-5.09) M/uL Hgb 9.1 L (11.7-15.5) g/dL Hct (34.0-46.0) % MCV (84.0-98.0) fL MCH (28.2-33.3) pg MCHC (31.7-36.0) g/dL RDW (11.2-14.1) % Plt Count (150-350) K/uL MPV (7.00-11.50) fL Neut % (Auto) (45.0-80.0) % Lymph % (Auto) (10.0-50.0) % Bremer % (Auto) (2.0-14.0) % Eos % (Auto) (0.0-5.0) % Baso % (Auto) (0.0-2.0) % Neut # (Auto) (1.40-7.00) K/uL Lymph # (Auto) (0.50-3.50) K/uL Bremer # (Auto) (0.00-1.00) K/uL Eos # (Auto) (0.00-0.50) K/uL Baso # (Auto) (0.00-0.20) K/uL PT (9.5-12.0) SEC INR APTT (24.5-32.8) SEC Sodium (136-145) mmol/L Potassium (3.5-5.1) mmol/L Chloride (98-107) mmol/L Carbon Dioxide (21.0-32.0) mmol/L BUN (7-18) mg/dL Creatinine (0.51-1.17) mg/dL Est Cr Clr Drug Dosing Estimated GFR (MDRD) mL/min Glucose (74-106) mg/dL POC Glucose 275 H* (65-110) mg/dl Calcium (8.5-10.1) mg/dL Magnesium (1.8-2.4) mg/dL Iron (50-175) ug/dL TIBC (250-450) ug/dL % Saturation Ferritin (8-388) ng/mL Total Bilirubin (0.2-1.0) mg/dL AST (15-37) U/L ALT (12-78) U/L Alkaline Phosphatase (46-116) IU/L Troponin I (0.000-0.056) ng/mL NT-Pro-B Natriuret Pep (0-125) pg/mL Total Protein (6.4-8.2) g/dL Albumin (3.4-5.0) g/dL Vitamin B12 (193-986) pg/mL Folate (8.6-58.9) ng/mL SARS-CoV-2 RNA (CHAYITO) Negative (NEGATIVE) 08/01/20 08/02/20 08/02/20 Range/Units 22:10 07:55 07:55 WBC 3.8 L (4.0-10.2) K/uL RBC 3.05 L (3.77-5.09) M/uL Hgb 8.3 L (11.7-15.5) g/dL Hct 28.6 L (34.0-46.0) % MCV 93.8 (84.0-98.0) fL MCH 27.2 L (28.2-33.3) pg MCHC 29.0 L (31.7-36.0) g/dL RDW 18.8 H (11.2-14.1) % Plt Count 85 L (150-350) K/uL MPV (7.00-11.50) fL Neut % (Auto) 53.1 (45.0-80.0) % Lymph % (Auto) 28.3 (10.0-50.0) % Bremer % (Auto) 15.5 H (2.0-14.0) % Eos % (Auto) 2.1 (0.0-5.0) % Baso % (Auto) 1.0 (0.0-2.0) % Neut # (Auto) 2.02 (1.40-7.00) K/uL Lymph # (Auto) 1.08 (0.50-3.50) K/uL Bremer # (Auto) 0.59 (0.00-1.00) K/uL Eos # (Auto) 0.08 (0.00-0.50) K/uL Baso # (Auto) 0.04 (0.00-0.20) K/uL PT (9.5-12.0) SEC INR APTT (24.5-32.8) SEC Sodium 136 (136-145) mmol/L Potassium 3.5 (3.5-5.1) mmol/L Chloride 100 (98-107) mmol/L Carbon Dioxide 29.5 (21.0-32.0) mmol/L BUN 7 (7-18) mg/dL Creatinine 0.93 (0.51-1.17) mg/dL Est Cr Clr Drug Dosing 55.55 Estimated GFR (MDRD) > 60 mL/min Glucose 250 H (74-106) mg/dL POC Glucose (65-110) mg/dl Calcium 8.6 (8.5-10.1) mg/dL Magnesium 2.0 (1.8-2.4) mg/dL Iron (50-175) ug/dL TIBC (250-450) ug/dL % Saturation Ferritin (8-388) ng/mL Total Bilirubin 2.6 H (0.2-1.0) mg/dL AST 27 (15-37) U/L ALT 12 (12-78) U/L Alkaline Phosphatase 105 (46-116) IU/L Troponin I 0.003 0.014 (0.000-0.056) ng/mL NT-Pro-B Natriuret Pep (0-125) pg/mL Total Protein 6.8 (6.4-8.2) g/dL Albumin 2.5 L (3.4-5.0) g/dL Vitamin B12 (193-986) pg/mL Folate (8.6-58.9) ng/mL SARS-CoV-2 RNA (CHAYITO) (NEGATIVE) 08/02/20 08/02/20 08/02/20 Range/Units 07:59 12:02 17:17 WBC (4.0-10.2) K/uL RBC (3.77-5.09) M/uL Hgb (11.7-15.5) g/dL Hct (34.0-46.0) % MCV (84.0-98.0) fL MCH (28.2-33.3) pg MCHC (31.7-36.0) g/dL RDW (11.2-14.1) % Plt Count (150-350) K/uL MPV (7.00-11.50) fL Neut % (Auto) (45.0-80.0) % Lymph % (Auto) (10.0-50.0) % Bremer % (Auto) (2.0-14.0) % Eos % (Auto) (0.0-5.0) % Baso % (Auto) (0.0-2.0) % Neut # (Auto) (1.40-7.00) K/uL Lymph # (Auto) (0.50-3.50) K/uL Bremer # (Auto) (0.00-1.00) K/uL Eos # (Auto) (0.00-0.50) K/uL Baso # (Auto) (0.00-0.20) K/uL PT (9.5-12.0) SEC INR APTT (24.5-32.8) SEC Sodium (136-145) mmol/L Potassium (3.5-5.1) mmol/L Chloride (98-107) mmol/L Carbon Dioxide (21.0-32.0) mmol/L BUN (7-18) mg/dL Creatinine (0.51-1.17) mg/dL Est Cr Clr Drug Dosing Estimated GFR (MDRD) mL/min Glucose (74-106) mg/dL POC Glucose 237 H 293 H* 246 H (65-110) mg/dl Calcium (8.5-10.1) mg/dL Magnesium (1.8-2.4) mg/dL Iron (50-175) ug/dL TIBC (250-450) ug/dL % Saturation Ferritin (8-388) ng/mL Total Bilirubin (0.2-1.0) mg/dL AST (15-37) U/L ALT (12-78) U/L Alkaline Phosphatase (46-116) IU/L Troponin I (0.000-0.056) ng/mL NT-Pro-B Natriuret Pep (0-125) pg/mL Total Protein (6.4-8.2) g/dL Albumin (3.4-5.0) g/dL Vitamin B12 (193-986) pg/mL Folate (8.6-58.9) ng/mL SARS-CoV-2 RNA (CHAYITO) (NEGATIVE) 08/02/20 08/03/20 08/03/20 Range/Units 20:38 07:35 07:50 WBC 3.5 L (4.0-10.2) K/uL RBC 3.00 L (3.77-5.09) M/uL Hgb 8.2 L (11.7-15.5) g/dL Hct 28.5 L (34.0-46.0) % MCV 95.0 (84.0-98.0) fL MCH 27.3 L (28.2-33.3) pg MCHC 28.8 L (31.7-36.0) g/dL RDW 19.1 H (11.2-14.1) % Plt Count 80 L (150-350) K/uL MPV (7.00-11.50) fL Neut % (Auto) 45.0 (45.0-80.0) % Lymph % (Auto) 37.8 (10.0-50.0) % Bremer % (Auto) 14.6 H (2.0-14.0) % Eos % (Auto) 1.7 (0.0-5.0) % Baso % (Auto) 0.9 (0.0-2.0) % Neut # (Auto) 1.57 (1.40-7.00) K/uL Lymph # (Auto) 1.32 (0.50-3.50) K/uL Bremer # (Auto) 0.51 (0.00-1.00) K/uL Eos # (Auto) 0.06 (0.00-0.50) K/uL Baso # (Auto) 0.03 (0.00-0.20) K/uL PT (9.5-12.0) SEC INR APTT (24.5-32.8) SEC Sodium (136-145) mmol/L Potassium (3.5-5.1) mmol/L Chloride (98-107) mmol/L Carbon Dioxide (21.0-32.0) mmol/L BUN (7-18) mg/dL Creatinine (0.51-1.17) mg/dL Est Cr Clr Drug Dosing Estimated GFR (MDRD) mL/min Glucose (74-106) mg/dL POC Glucose 165 H 214 H (65-110) mg/dl Calcium (8.5-10.1) mg/dL Magnesium (1.8-2.4) mg/dL Iron (50-175) ug/dL TIBC (250-450) ug/dL % Saturation Ferritin (8-388) ng/mL Total Bilirubin (0.2-1.0) mg/dL AST (15-37) U/L ALT (12-78) U/L Alkaline Phosphatase (46-116) IU/L Troponin I (0.000-0.056) ng/mL NT-Pro-B Natriuret Pep (0-125) pg/mL Total Protein (6.4-8.2) g/dL Albumin (3.4-5.0) g/dL Vitamin B12 (193-986) pg/mL Folate (8.6-58.9) ng/mL SARS-CoV-2 RNA ([facility]) (NEGATIVE) 08/03/20 08/03/20 08/03/20 Range/Units 07:50 07:50 11:20 WBC (4.0-10.2) K/uL RBC (3.77-5.09) M/uL Hgb (11.7-15.5) g/dL Hct (34.0-46.0) % MCV (84.0-98.0) fL MCH (28.2-33.3) pg MCHC (31.7-36.0) g/dL RDW (11.2-14.1) % Plt Count (150-350) K/uL MPV (7.00-11.50) fL Neut % (Auto) (45.0-80.0) % Lymph % (Auto) (10.0-50.0) % Bremer % (Auto) (2.0-14.0) % Eos % (Auto) (0.0-5.0) % Baso % (Auto) (0.0-2.0) % Neut # (Auto) (1.40-7.00) K/uL Lymph # (Auto) (0.50-3.50) K/uL Bremer # (Auto) (0.00-1.00) K/uL Eos # (Auto) (0.00-0.50) K/uL Baso # (Auto) (0.00-0.20) K/uL PT (9.5-12.0) SEC INR APTT (24.5-32.8) SEC Sodium 137 (136-145) mmol/L Potassium 3.4 L (3.5-5.1) mmol/L Chloride 101 (98-107) mmol/L Carbon Dioxide 31.4 (21.0-32.0) mmol/L BUN 12 (7-18) mg/dL Creatinine 0.94 (0.51-1.17) mg/dL Est Cr Clr Drug Dosing 54.96 Estimated GFR (MDRD) > 60 mL/min Glucose 204 H (74-106) mg/dL POC Glucose 338 H* (65-110) mg/dl Calcium 8.5 (8.5-10.1) mg/dL Magnesium (1.8-2.4) mg/dL Iron 27 L (50-175) ug/dL TIBC 299 (250-450) ug/dL % Saturation [id number] Ferritin 45 (8-388) ng/mL Total Bilirubin (0.2-1.0) mg/dL AST (15-37) U/L ALT (12-78) U/L Alkaline Phosphatase (46-116) IU/L Troponin I (0.000-0.056) ng/mL NT-Pro-B Natriuret Pep (0-125) pg/mL Total Protein (6.4-8.2) g/dL Albumin (3.4-5.0) g/dL Vitamin B12 (193-986) pg/mL Folate (8.6-58.9) ng/mL SARS-CoV-2 RNA ([facility]) (NEGATIVE) 08/03/20 08/04/20 08/04/20 Range/Units 17:24 07:35 08:30 WBC 4.2 (4.0-10.2) K/uL RBC 3.29 L (3.77-5.09) M/uL Hgb 9.0 L (11.7-15.5) g/dL Hct 31.2 L (34.0-46.0) % MCV 94.8 (84.0-98.0) fL MCH 27.4 L (28.2-33.3) pg MCHC 28.8 L (31.7-36.0) g/dL RDW 19.2 H (11.2-14.1) % Plt Count 87 L (150-350) K/uL MPV (7.00-11.50) fL Neut % (Auto) 50.2 (45.0-80.0) % Lymph % (Auto) 31.4 (10.0-50.0) % [place] % (Auto) 15.1 H (2.0-14.0) % Eos % (Auto) 2.4 (0.0-5.0) % Baso % (Auto) 0.9 (0.0-2.0) % Neut # (Auto) 2.13 (1.40-7.00) K/uL Lymph # (Auto) 1.33 (0.50-3.50) K/uL [place] # (Auto) 0.64 (0.00-1.00) K/uL Eos # (Auto) 0.10 (0.00-0.50) K/uL Baso # (Auto) 0.04 (0.00-0.20) K/uL PT (9.5-12.0) SEC INR APTT (24.5-32.8) SEC Sodium (136-145) mmol/L Potassium (3.5-5.1) mmol/L Chloride (98-107) mmol/L Carbon Dioxide (21.0-32.0) mmol/L BUN (7-18) mg/dL Creatinine (0.51-1.17) mg/dL Est Cr Clr Drug Dosing Estimated GFR (MDRD) mL/min Glucose (74-106) mg/dL POC Glucose 221 H 162 H (65-110) mg/dl Calcium (8.5-10.1) mg/dL Magnesium (1.8-2.4) mg/dL Iron (50-175) ug/dL TIBC (250-450) ug/dL % Saturation Ferritin (8-388) ng/mL Total Bilirubin (0.2-1.0) mg/dL AST (15-37) U/L ALT (12-78) U/L Alkaline Phosphatase (46-116) IU/L Troponin I (0.000-0.056) ng/mL NT-Pro-B Natriuret Pep (0-125) pg/mL Total Protein (6.4-8.2) g/dL Albumin (3.4-5.0) g/dL Vitamin B12 (193-986) pg/mL Folate (8.6-58.9) ng/mL SARS-CoV-2 RNA (CHAYITO) (NEGATIVE) 08/04/20 08/04/20 08/04/20 Range/Units 08:30 08:30 08:30 WBC (4.0-10.2) K/uL RBC (3.77-5.09) M/uL Hgb (11.7-15.5) g/dL Hct (34.0-46.0) % MCV (84.0-98.0) fL MCH (28.2-33.3) pg MCHC (31.7-36.0) g/dL RDW (11.2-14.1) % Plt Count (150-350) K/uL MPV (7.00-11.50) fL Neut % (Auto) (45.0-80.0) % Lymph % (Auto) (10.0-50.0) % [place] % (Auto) (2.0-14.0) % Eos % (Auto) (0.0-5.0) % Baso % (Auto) (0.0-2.0) % Neut # (Auto) (1.40-7.00) K/uL Lymph # (Auto) (0.50-3.50) K/uL [place] # (Auto) (0.00-1.00) K/uL Eos # (Auto) (0.00-0.50) K/uL Baso # (Auto) (0.00-0.20) K/uL PT 11.2 (9.5-12.0) SEC INR 1.1 APTT 31.5 (24.5-32.8) SEC Sodium 135 L (136-145) mmol/L Potassium 3.1 L (3.5-5.1) mmol/L Chloride 98 (98-107) mmol/L Carbon Dioxide 32.7 H (21.0-32.0) mmol/L BUN 14 (7-18) mg/dL Creatinine 0.90 (0.51-1.17) mg/dL Est Cr Clr Drug Dosing 57.40 Estimated GFR (MDRD) > 60 mL/min Glucose 203 H (74-106) mg/dL POC Glucose (65-110) mg/dl Calcium 8.7 (8.5-10.1) mg/dL Magnesium (1.8-2.4) mg/dL Iron (50-175) ug/dL TIBC (250-450) ug/dL % Saturation Ferritin (8-388) ng/mL Total Bilirubin 1.7 H (0.2-1.0) mg/dL AST 29 (15-37) U/L ALT 14 (12-78) U/L Alkaline Phosphatase 103 (46-116) IU/L Troponin I 0.009 (0.000-0.056) ng/mL NT-Pro-B Natriuret Pep 922 H (0-125) pg/mL Total Protein 7.1 (6.4-8.2) g/dL Albumin 2.5 L (3.4-5.0) g/dL Vitamin B12 1287 H (193-986) pg/mL Folate 6.2 L (8.6-58.9) ng/mL SARS-CoV-2 RNA ([place]ITO) (NEGATIVE) 12/14/20 Range/Units 11:37 WBC (4.0-10.2) K/uL RBC (3.77-5.09) M/uL Hgb (11.7-15.5) g/dL Hct (34.0-46.0) % MCV (84.0-98.0) fL MCH (28.2-33.3) pg MCHC (31.7-36.0) g/dL RDW (11.2-14.1) % Plt Count (150-350) K/uL MPV (7.00-11.50) fL Neut % (Auto) (45.0-80.0) % Lymph % (Auto) (10.0-50.0) % [place] % (Auto) (2.0-14.0) % Eos % (Auto) (0.0-5.0) % Baso % (Auto) (0.0-2.0) % Neut # (Auto) (1.40-7.00) K/uL Lymph # (Auto) (0.50-3.50) K/uL [place] # (Auto) (0.00-1.00) K/uL Eos # (Auto) (0.00-0.50) K/uL Baso # (Auto) (0.00-0.20) K/uL PT (9.5-12.0) SEC INR APTT (24.5-32.8) SEC Sodium (136-145) mmol/L Potassium (3.5-5.1) mmol/L Chloride (98-107) mmol/L Carbon Dioxide (21.0-32.0) mmol/L BUN (7-18) mg/dL Creatinine (0.51-1.17) mg/dL Est Cr Clr Drug Dosing Estimated GFR (MDRD) mL/min Glucose (74-106) mg/dL POC Glucose 303 H* (65-110) mg/dl Calcium (8.5-10.1) mg/dL Magnesium (1.8-2.4) mg/dL Iron (50-175) ug/dL TIBC (250-450) ug/dL % Saturation Ferritin (8-388) ng/mL Total Bilirubin (0.2-1.0) mg/dL AST (15-37) U/L ALT (12-78) U/L Alkaline Phosphatase (46-116) IU/L Troponin I (0.000-0.056) ng/mL NT-Pro-B Natriuret Pep (0-125) pg/mL Total Protein (6.4-8.2) g/dL Albumin (3.4-5.0) g/dL Vitamin B12 (193-986) pg/mL Folate (8.6-58.9) ng/mL SARS-CoV-2 RNA ([facility]ITO) (NEGATIVE) [facility]ANO Results - Last 24 hrs: Microbiology 08/02/20 10:30 Stool / Feces Stool Occult Blood (DELANO) - Final NEGATIVE OCCULT BLOOD REFERENCE RANGE: NEGATIVE Med Orders - Current: Current Medications Albuterol/Ipratropium (Duoneb 3.0-0.5 Mg/3 Ml) 3 ml INH Q4HR PRN PRN Reason: Shortness of Breath Benzonatate (Tessalon Perles) 100 mg PO TID PRN PRN Reason: Cough Last Admin: 08/03/20 19:47 Dose: 100 mg Documented by: Buspirone HCl (Buspar) 5 mg PO BID PRN PRN Reason: Anxiety Cetirizine HCl (Zyrtec) 10 mg PO DAILY [facility] Last Admin: 08/04/20 07:53 Dose: 10 mg Documented by: Dextrose/Water (Dextrose 50% In Water) 50 ml IV ASDIRECTED PRN PRN Reason: Hypoglycemia Furosemide (Lasix) 40 mg IVPUSH DAILY [facility] Last Admin: 08/04/20 07:52 Dose: 40 mg Documented by: Glipizide (Glucotrol Xl) 10 mg PO DAILY [facility] Last Admin: 08/04/20 07:52 Dose: 10 mg Documented by: Glucagon (Glucagen) 1 mg IM ASDIRECTED PRN PRN Reason: Hypoglycemia Insulin Human Lispro (Humalog) 0 unit SUBCUT BIDAC [facility]; Protocol Last Admin: 08/04/20 07:50 Dose: 3 units Documented by: Nortriptyline HCl (Nortriptyline) 50 mg PO BEDTIME [facility] Last Admin: 08/03/20 19:47 Dose: 50 mg Documented by: Nystatin (Nystop) 1 gm TOP BID [facility] Last Admin: 08/04/20 07:51 Dose: 1 each Documented by: Sodium Chloride (Saline Flush) 10 ml FLUSH ASDIRECTED PRN PRN Reason: Keep Vein Open Last Admin: 08/04/20 07:52 Dose: 10 ml Documented by: Sumatriptan Succinate (Imitrex) 50 mg PO BID PRN PRN Reason: Headache Temazepam (Restoril) 15 mg PO BEDTIME PRN PRN Reason: insomnia Last Admin: 08/03/20 19:47 Dose: 15 mg Documented by: Discontinued Medications Cetirizine HCl (Zyrtec) 10 mg PO DAILY [facility] Last Admin: 08/02/20 01:57 Dose: Not Given Documented by: Magnesium Sulfate (Magnesium Sulfate In Water Premix) 100 mls @ 25 mls/hr IV ONETIME ONE Stop: 08/01/20 21:00 Last Admin: 08/01/20 19:53 Dose: 25 mls/hr Documented by: Insulin Human Lispro (Humalog) 12 unit SUBCUT ONETIME ONE Stop: 08/03/20 11:29 Last Admin: 08/03/20 11:31 Dose: 12 units Documented by: Pantoprazole Sodium (Protonix Iv) 40 mg IVPUSH DAILY [facility] Last Admin: 08/02/20 08:30 Dose: 40 mg Documented by: - Exam Quality Assessment: Reports: DVT Prophylaxis. Denies: Supplemental Oxygen, Central Line/PICC, Urine Catheter, Skin Breakdown, Restraints General: Reports: Alert, Oriented, Cooperative, No Acute Distress HEENT: Reports: Pupils Equal, Pupils Reactive, EOMI, Mucous Membr. Moist/[place] Neck: Reports: Supple, Trachea Midline, No JVD, No Thyromegaly. Denies: Lymphadenopathy Lungs: Reports: Normal Respiratory Effort, Rales (Mild bilateral basilar rales). Denies: Rhonchi, Rub, Wheezing Cardiovascular: Reports: Regular Rate, No Murmurs, Tachycardia. Denies: Gallops, Rubs GI/Abdominal Exam: Normal Bowel Sounds, Soft, Non-Tender, No Organomegaly, No Distention, No Abnormal Bruit, No Mass, Other (Obese). No: Guarding (Female) Exam: Deferred Rectal (Female) Exam: Deferred Back Exam: Reports: Normal Inspection, Full Range of Motion. Denies: CVA Tenderness (L), CVA Tenderness (R), Muscle Spasm, Paraspinal Tenderness, Vertebral Tenderness Extremities: Normal Range of Motion, Non-Tender, No Pedal Edema, Normal Capillary Refill, Pedal Edema (Improved +1 to +2 bilateral pedal/pretibial edema). No: Sonu's Sign Skin: Reports: Warm, Dry, Intact, Ecchymosis (Multiple areas of moderate ecchymosis with no petechiae). Denies: Rash Neurological: Reports: No New Focal Deficit, Other (No clinical orthostasis) Psy/Mental Status: Reports: Alert, Anxious (Moderate), Depressed ( moderate with adequate eye contact). Denies: Agitated, Suicidal Ideation, Hallucinations, Withdrawal Symptoms #1 Interpretation EKG Date: 08/04/20 Time: 12:15 Rhythm: Other (Sinus tachycardia with occasional PACs?) Rate (Beats/Min): 108 [place]: LAD-Left [place] Deviation (Extended left) P-Wave: Enlarged (Moderate diffuse biphasic) QRS: Wide (0.10 seconds representing repolarization changes) ST-T: Normal QT: Normal NC/PQ Interval: 0.17 seconds with extreme poor R wave progression in the anterior leads. Comparison: NA - No Prior EKG (No recent EKG for comparison) EKG Interpretation Comments: 1. No acute ischemic changes 2. Sinus tachycardia 3. Left atrial enlargement 4. PACs? 5. Repolarization changes
[2020-08-04] MEDS ORDERED: FLU Vacc QS2020-21 36MOS UP/PF 60 MCG/0.5 ML Syringe IM ONE (12:00)
== END 2020-08-04 13:45 | disposition home or self-care (01) | DRG 292 ==
LOC: LL.CLIN 14:30 → LL.MS 16:25 → UNDOADMIN 16:25 → LL.MS 17:29
PROVIDERS: ADMIT Physician Assistant; ATTEND Family Medicine
DX: I11.0 Hypertensive heart disease with heart failure (principal); D61.818 Other pancytopenia; I50.9 Heart failure, unspecified; J45.20 Mild intermittent asthma, uncomplicated; E66.9 Obesity, unspecified; K21.9 Gastro-esophageal reflux disease without esophagitis; F41.8 Other specified anxiety disorders; D50.8 Other iron deficiency anemias; E83.42 Hypomagnesemia; E80.6 Other disorders of bilirubin metabolism; E88.09 Other disorders of plasma-protein metabolism, not elsewhere classified; E87.6 Hypokalemia; M54.9 Dorsalgia, unspecified; E78.5 Hyperlipidemia, unspecified; G43.909 Migraine, unspecified, not intractable, without status migrainosus; D64.9 Anemia, unspecified; E11.65 Type 2 diabetes mellitus with hyperglycemia; Z20.828 Contact with and (suspected) exposure to other viral communicable diseases; Z79.4 Long term (current) use of insulin; Z79.899 Other long term (current) drug therapy; Z91.030 Bee allergy status; Z88.1 Allergy status to other antibiotic agents; Z88.5 Allergy status to narcotic agent; Z88.0 Allergy status to penicillin; Z91.018 Allergy to other foods
CPT/HCPCS: 36415; 71046; 80048; 80053; 82272; 82607; 82728; 82746; 82962; 83540; 83550; 83735; 83880; 84484; 85018; 85025; 85027; 85610; 85730; 90686; 93005; A9270-GY; C9113; G0008; J1815-GY; J1940; J3475; U0002

== ENCOUNTER 2020-08-08 01:55 | Emergency (ER) | payer MEDICAID ==
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
== END 2020-08-08 03:20 | disposition home or self-care (01) ==
LOC: LL.ED 01:55
DX: F41.8 Other specified anxiety disorders (principal); I10 Essential (primary) hypertension; M89.49 Other hypertrophic osteoarthropathy, multiple sites; E78.00 Pure hypercholesterolemia, unspecified; J45.909 Unspecified asthma, uncomplicated; K21.9 Gastro-esophageal reflux disease without esophagitis; E11.42 Type 2 diabetes mellitus with diabetic polyneuropathy; Z91.030 Bee allergy status; Z88.8 Allergy status to other drugs, medicaments and biological substances; Z88.5 Allergy status to narcotic agent; Z88.1 Allergy status to other antibiotic agents; Z88.6 Allergy status to analgesic agent; Z91.040 Latex allergy status; Z91.018 Allergy to other foods; Z79.899 Other long term (current) drug therapy; Z79.4 Long term (current) use of insulin
CPT/HCPCS: 96372; 99284; J3360